=== PATIENT | female | born 1990 | race Caucasian/White ===

== ENCOUNTER 2016-12-15 19:01 | Emergency (ER) | payer MEDICAID, OTHER ==
[2016-12-15] MEDS ORDERED: DEXAMETHASONE 10 MG/ML VIAL PO STA (19:58)
[2016-12-15] MEDS ORDERED: DEXAMETHASONE 10 MG/ML VIAL ONE (20:04)
== END 2016-12-15 20:11 | disposition home or self-care (01) ==
DX: J06.9 Acute upper respiratory infection, unspecified (principal); B97.89 Other viral agents as the cause of diseases classified elsewhere; J02.9 Acute pharyngitis, unspecified; F17.200 Nicotine dependence, unspecified, uncomplicated

== ENCOUNTER 2017-01-22 15:10 | Emergency (ER) | payer MEDICAID ==
[2017-01-22] MEDS ORDERED: DEXAMETHASONE 10 MG/ML VIAL PO STA (15:27)
[2017-01-22] MEDS ORDERED: DEXAMETHASONE 10 MG/ML VIAL ONE (15:36)
[2017-01-22] MEDS ORDERED: CHERRY SYRUP 10 ML UDC PO ONE (15:36)
[2017-01-22] MEDS ORDERED: PENICILLIN VK 250 MG TABLET PO STA (16:00)
[2017-01-22] MEDS ORDERED: IBUPROFEN 800 MG TABLET PO STA (16:00)
[2017-01-22] MEDS ORDERED: IBUPROFEN 800 MG TABLET PO ONE (16:03)
[2017-01-22] MEDS ORDERED: PENICILLIN VK 250 MG TABLET PO ONE (16:04)
== END 2017-01-22 16:08 | disposition home or self-care (01) ==
DX: J02.0 Streptococcal pharyngitis (principal)
CPT/HCPCS: 87070; 87430; 99283; A9270

== ENCOUNTER 2017-02-18 13:35 | Emergency (ER) | payer MEDICAID ==
[2017-02-18] MEDS ORDERED: SODIUM CHLORIDE 0.9% 1,000 ML IV ONE (13:59)
== END 2017-02-18 15:18 | disposition home or self-care (01) ==
DX: R10.9 Unspecified abdominal pain (principal); M54.2 Cervicalgia; R07.9 Chest pain, unspecified; R00.0 Tachycardia, unspecified; R03.0 Elevated blood-pressure reading, without diagnosis of hypertension; F17.200 Nicotine dependence, unspecified, uncomplicated

== ENCOUNTER 2017-05-04 13:23 | Outpatient (CLI) | payer MEDICAID | END 2017-05-04 13:24 | disposition home or self-care (01) | LOC: LAB.N 13:23 | PROVIDERS: ATTEND Physician Assistant | DX: N18.2 Chronic kidney disease, stage 2 (mild) (principal) | CPT/HCPCS: 36415; 80053 ==

== ENCOUNTER 2017-05-05 13:09 | Outpatient (CLI) | payer MEDICAID ==
[2017-05-05 19:27] LABS: ALBUMIN/GLOBULIN RATIO 1.3 (1.0-2.2); BILIRUBIN,TOTAL 0.6 mg/dL (0.2-1.0); CALCIUM 9.2 mg/dL (8.5-10.3); CREATININE 0.8 mg/dL (0.4-1.0); POTASSIUM 3.6 mmol/L (3.5-5.0); TOTAL PROTEIN 7.8 g/dL (6.7-8.2)
== END 2017-05-05 13:10 | disposition home or self-care (01) ==
LOC: LAB.N 13:09
PROVIDERS: ATTEND Physician Assistant
DX: N18.2 Chronic kidney disease, stage 2 (mild) (principal)
CPT/HCPCS: 36415; 80053

== ENCOUNTER 2017-12-15 21:16 | Emergency (ER) | payer MEDICAID, OTHER ==
[2017-12-15] MEDS ORDERED: DEXAMETHASONE 10 MG/ML VIAL PO STA (22:38)
[2017-12-15] MEDS ORDERED: KETOROLAC 60 MG/2 ML VIAL IM STA (22:38)
--- NOTE | 2017-12-15 22:39 | ED Physician Documentation ---
PD HPI UPPER EXT INJURY - Stated complaint Stated Complaint: LT ARM/MID BACK PX - Chief complaint Chief Complaint: Trauma Ext - History obtained from History obtained from: Patient - History of Present Illness Location: Left, Shoulder Type of injury: Other Where injury occurred: Work Timing - onset: Today Timing - details: Abrupt onset Worsened by: Moving, Palpating Similar symptoms before: Work up / diagnostics Recently seen: Not recently seen - Additonal information Additional information: Patient is a 27 year old female with no significant past medical history who is presenting to the emergency department for shoulder and back pain. 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 Patient strained her shoulder in doing so. Review of Systems Constitutional: reports: Reviewed and negative Eyes: reports: Reviewed and negative Ears: reports: Reviewed and negative Nose: reports: Reviewed and negative Throat: reports: Reviewed and negative Cardiac: denies: Chest pain / pressure, Palpitations Respiratory: reports: Reviewed and negative GI: denies: Nausea, Vomiting Skin: denies: Rash, Lesions, Abrasion (s), Laceration (s) Musculoskeletal: reports: Neck pain, Back pain, Extremity pain Neurologic: denies: Generalized weakness, Focal weakness, Head injury Immunocompromised: denies: Immunocompromised PD PAST MEDICAL HISTORY - Past Medical History Past Medical History: Yes Cardiovascular: None Respiratory: None Neuro: None Endocrine/Autoimmune: None GI: None 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 HEENT: None Psych: Anxiety Musculoskeletal: None Derm: None Other Past Medical History: Stage 2 kidney disease - Past Surgical History Past Surgical History: No General: Other /SEAM STEAMER: section - Present Medications Home Medications: Ambulatory Orders Medication Instructions Recorded Confirmed Mylan 1 tab PO DAILY 02/18/17 12/15/17 Cyclobenzaprine [Flexeril] 10 mg PO TID PRN #10 tablet 12/15/17 - Allergies Allergies/Adverse Reactions: Allergies Allergy/AdvReac Type Severity Reaction Status Date / Time No Known Drug Allergies Allergy Verified 12/15/17 21:48 - Social History Does the pt smoke?: Yes Smoking Status: Former smoker Does the pt drink ETOH?: No Does the pt have substance abuse?: No - Immunizations Immunizations are current?: Yes - POLST Patient has POLST: No PD ED PE NORMAL - Vitals Vital signs reviewed: Yes - General General: Alert and oriented X 3, No acute distress, Well developed/nourished - HEENT HEENT: Atraumatic - Neck Neck: Supple, no meningeal sign - Cardiac Cardiac: RRR - Respiratory Respiratory: No respiratory distress - Abdomen Abdomen: Soft - Derm Derm: Normal color, Warm and dry, No rash - Neuro Neuro: Alert and oriented X 3, No motor deficit, No sensory deficit, Normal speech PD ED PE EXPANDED - Extremities Extremities: Tenderness, Left shoulder (mild tenderness to palpation of left shoulder and trapezius muscle, full rom, no gross deformity), Motor intact, Sensory intact, Vascular intact, Tendon intact. No: Deformity Results - Vitals Vitals: Vital Signs - 24 hr 12/15/17 12/15/17 12/15/17 21:22 22:13 23:18 Temperature 35.9 C L Heart Rate 120 H 117 H 109 H Respiratory 18 16 18 Rate Blood Pressure 126/81 H 123/83 H 122/76 O2 Saturation 99 98 98 12/15/17 23:40 Temperature 37.1 C Heart Rate 112 H Respiratory 18 Rate Blood Pressure 139/76 H O2 Saturation 100 Oxygen O2 Source Room air PD MEDICAL DECISION MAKING - ED course Complexity details: reviewed old records, reviewed results, re-evaluated patient , considered differential, d/w patient ED course: Patient was seen and examined at bedside. Patient had no gross abnormality. Patient had mild tenderness but full rom. No imaging was indicated at this time. patient was treated with toradol and decadron and a prescription for flexeril was written. patient required no further work up and was stable for discharge with outpatient follow up. Departure - Departure Disposition: 01 Home, Self Care Clinical Impression: Left shoulder strain Condition: Good Instructions: ED Sprain Shoulder Follow-Up: Joss Payne PA-C [Primary Care Provider] - Prescriptions: Cyclobenzaprine [Flexeril] 10 mg PO TID PRN #10 tablet PRN Reason: Spasms Comments: Your symptoms today are likely secondary to a shoulder strain. You should take motrin or tylenol as needed for pain. You should use ice on your shoulder at least 4 times a day. You can take a flexeril for spasm as needed but you cannot drive or drink alcohol while taking it. You should follow up with your doctor if your symptoms persist. You may return to the emergency department at any time for new, worsening or uncontrollable symptoms. Discharge Date/Time: 12/15/17 23:41
[2017-12-15] MEDS ORDERED: CHERRY SYRUP 10 ML UDC PO ONE (23:11)
[2017-12-15 23:41] VITALS: BP 139/76
== END 2017-12-15 23:41 | disposition home or self-care (01) ==
LOC: ED 21:16
DX: S43.402A Unspecified sprain of left shoulder joint, initial encounter (principal); X50.9XXA Other and unspecified overexertion or strenuous movements or postures, initial encounter; Y99.0 Civilian activity done for income or pay; N18.2 Chronic kidney disease, stage 2 (mild); Z87.891 Personal history of nicotine dependence
CPT/HCPCS: 1040M; 99283; 99284; A9270

== ENCOUNTER 2017-12-17 13:09 | Emergency (ER) | payer MEDICAID ==
[2017-12-17 13:29] VITALS: BP 149/90
[2017-12-17] MEDS ORDERED: DEXAMETHASONE 10 MG/ML VIAL PO STA (14:55)
--- NOTE | 2017-12-17 15:00 | ED Physician Documentation ---
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 HEENT: None Psych: Anxiety Musculoskeletal: None Derm: None - Past Surgical History Past Surgical History: No General: 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 - Present Medications Home Medications: Ambulatory Orders Medication Instructions Recorded Confirmed Amoxicillin 500 mg PO Q8H #30 capsule 12/17/17 Cholecalciferol (Vitamin D3) 2,000 unit PO DAILY 12/17/17 12/17/17 [Vitamin D3] Cyanocobalamin (Vitamin B-12) 3,000 mcg PO DAILY 12/17/17 12/17/17 [Vitamin B-12] Fluticasone [Flonase] 1 sprays JIMI BID PRN #1 bottle 12/17/17 - Allergies Allergies/Adverse Reactions: Allergies Allergy/AdvReac Type Severity Reaction Status Date / Time No Known Drug Allergies Allergy Verified 12/17/17 13:29 - Social History Does the pt smoke?: Yes Smoking Status: Former smoker Does the pt drink ETOH?: No Does the pt have substance abuse?: No - Immunizations Immunizations are current?: Yes - POLST Patient has POLST: No PD ED PE NORMAL - Vitals Vital signs reviewed: Yes - HEENT HEENT: Other (deanna enlarged arythematous almost touching tonsils s 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 No: Ears normal (deanna TMs erythematous and tautly retracted with some cloudy fluid) - Neck Neck: Supple, no meningeal sign. No: No adenopathy (anterior no posterior) - Cardiac Cardiac: RRR - Respiratory Respiratory: No respiratory distress, Clear bilaterally - Abdomen Abdomen: Soft, Non tender - Neuro Neuro: Alert and oriented X 3 Results - Vitals Vitals: Vital Signs - 24 hr 12/17/17 13:27 Temperature 37.3 C Heart Rate 109 H Respiratory 20 Rate Blood Pressure 149/90 H O2 Saturation 98 Oxygen O2 Source Room air PD MEDICAL DECISION MAKING - ED course ED course: HR and BP noted - her ears are hurting quite a lot, well appearing do not think pt is septic Departure - Departure Disposition: 01 Home, Self Care Clinical Impression: Pharyngitis Qualifiers: Pharyngitis/tonsillitis etiology: unspecified etiology Qualified Code(s): J02.9 - Acute pharyngitis, unspecified Otitis media Qualifiers: Otitis media type: suppurative Chronicity: acute Laterality: bilateral Recurrence: not specified as recurrent Spontaneous tympanic membrane rupture: without spontaneous rupture Qualified Code(s): H66.003 - Acute suppurative otitis media without spontaneous rupture of ear drum, bilateral Condition: Good Instructions: ED Otitis Media Acute Adult, ED Strep Pharyngitis Poss Follow-Up: Joss Payne PA-C [Primary Care Provider] - Prescriptions: Amoxicillin 500 mg PO Q8H #30 capsule Fluticasone [Flonase] 1 sprays JIMI BID PRN #1 bottle PRN Reason: allergies
== END 2017-12-17 15:06 | disposition home or self-care (01) ==
LOC: ED 13:09
DX: J02.9 Acute pharyngitis, unspecified (principal); H66.003 Acute suppurative otitis media without spontaneous rupture of ear drum, bilateral; Z87.891 Personal history of nicotine dependence
CPT/HCPCS: 99283

== ENCOUNTER 2017-12-22 12:23 | Emergency (ER) | payer MEDICAID ==
[2017-12-22 12:40] VITALS: BP 128/82
[2017-12-22 13:01] LABS: BILIRUBIN,URINE NEGATIVE (NEGATIVE); GLUCOSE, URINE (UA) NEGATIVE (NEGATIVE); KETONES,URINE (UA) NEGATIVE (NEGATIVE); LEUKOCYTE ESTERASE, URINE SMALL (NEGATIVE); NITRITE,URINE NEGATIVE (NEGATIVE); OCCULT BLOOD,URINE NEGATIVE (NEGATIVE); PH,URINE 5.5 PH (5.0-7.5); PROTEIN,URINE NEGATIVE (NEGATIVE); UROBILINOGEN,URINE 0.2 (NORMAL) E.U./dL (NORMAL)
[2017-12-22 13:03] LABS: CLARITY,URINE CLEAR (CLEAR); HCG UR QUAL NEGATIVE
[2017-12-22 13:10] LABS: BACTERIA,URINE Few /HPF (None Seen); RBC,URINE 0-5 /HPF (0-5); SQUAMOUS EPITHELIAL CELL,UR MANY Squamous (<= Few)
--- NOTE | 2017-12-22 15:11 | ED Physician Documentation ---
History of Present Illness - Stated complaint Stated Complaint: FEMALE - Chief complaint Chief Complaint: General - History obtained from History obtained from: Patient - History of Present Illness Timing: How many days ago (2) Pain level max: 5 Pain level now: 3 Improved by: nothing Worsened by: urinating - Additonal information Additional information: Patient is a 27-year-old female who presents to the emergency department with complaints of dysuria for the past couple of days. This started after she began taking amoxicillin for sinusitis and an ear infection. She also has had unprotected intercourse with a couple of new partners. Concerned she may have an STI. Denies any vaginal bleeding or discharge. No itching. Review of Systems Constitutional: denies: Fever, Chills Ears: denies: Ear pain Nose: denies: Rhinorrhea / runny nose, Congestion Throat: denies: Sore throat Cardiac: denies: Chest pain / pressure Respiratory: denies: Dyspnea GI: denies: Abdominal Pain, Nausea, Vomiting, Diarrhea : reports: Dysuria. 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: section - Present Medications Home Medications: Ambulatory Orders Medication Instructions Recorded Confirmed Amoxicillin 500 mg PO Q8H #30 capsule 12/17/17 Cholecalciferol (Vitamin D3) 2,000 unit PO DAILY 12/17/17 12/17/17 [Vitamin D3] Cyanocobalamin (Vitamin B-12) 3,000 mcg PO DAILY 12/17/17 12/17/17 [Vitamin B-12] Fluticasone [Flonase] 1 sprays JIMI BID PRN #1 bottle 12/17/17 Acyclovir 400 mg PO TID #21 tablet 12/22/17 Metronidazole [Flagyl] 500 mg PO BID #14 tablet 12/22/17 - Allergies Allergies/Adverse Reactions: Allergies Allergy/AdvReac Type Severity Reaction Status Date / Time No Known Drug Allergies Allergy Verified 12/22/17 12:40 - Social History Does the pt smoke?: Yes Smoking Status: Current every day smoker Does the pt drink ETOH?: No Does the pt have substance abuse?: No - Immunizations Immunizations are current?: Yes - POLST Patient has POLST: No PD ED PE NORMAL - Vitals Vital signs reviewed: Yes - General General: Alert and oriented X 3, No acute distress, Well developed/nourished - HEENT HEENT: PERRL, Moist mucous membranes - Neck Neck: Supple, no meningeal sign - Cardiac Cardiac: RRR - Respiratory Respiratory: No respiratory distress, Clear bilaterally - Abdomen Abdomen: Soft, Non tender, Non distended - Female Female : Food 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 no adnexal tenderness.) - Back Back: No CVA TTP - Derm Derm: Warm and dry - Neuro Neuro: Alert and oriented X 3 - Psych Psych: Normal mood, Normal affect Results - Vitals Vitals: Vital Signs - 24 hr 12/22/17 12:35 Temperature 36.1 C L Heart Rate 84 Respiratory 16 Rate Blood Pressure 128/82 H O2 Saturation 100 Oxygen O2 Source Room air - Labs Labs: Microbiology 12/22/17 15:05 HALI Preparation - Final Other - Vaginal 12/22/17 15:05 Wet Prep - Final Vaginal Laboratory Tests 12/22/17 12:49 Urine Color YELLOW Urine Clarity CLEAR Urine pH 5.5 Ur Specific [place] 1.015 Urine Protein NEGATIVE Urine Glucose (UA) NEGATIVE Urine Ketones NEGATIVE Urine Occult Blood NEGATIVE Urine Nitrite NEGATIVE Urine Bilirubin NEGATIVE Urine Urobilinogen 0.2 (NORMAL) Ur Leukocyte Esterase SMALL H Urine RBC 0-5 Urine WBC 0-3 Ur Squamous Epith Cells MANY Squamous H Urine Bacteria Few Ur Microscopic Review INDICATED Urine Culture Comments NOT INDICATED Urine HCG, Qual NEGATIVE PD MEDICAL DECISION MAKING - ED course Complexity details: reviewed results, re-evaluated patient, considered differential, d/w patient ED course: Patient is a 27-year-old female with what appears to be bacterial vaginitis, will place on Flagyl for this. Also concerned that she may have herpes cervicitis and will place on acyclovir for this. We will have her follow-up closely with ELECTRICAL AND RADIO AIRCRAFT MECHANIC for further care. Patient is well-appearing, nontoxic. Counseled to use condoms for sexual activity and that her partners should be tested as well. Testing was sent for gonorrhea and chlamydia. She is recommended to have HIV testing with her doctor. Patient counseled regarding signs and symptoms for which I believe and urgent re-evaluation would be necessary. Patient with good understanding of and agreement to plan and is comfortable going home at this time This document was made in part using voice recognition software. While efforts are made to proofread this document, sound alike and grammatical errors may occur. Departure - Departure Disposition: Home, Self Care Clinical Impression: Bacterial vaginosis, Herpesviral cervicitis Condition: Good Instructions: ED Herpes Simplex Virus Type 2, ED Vaginosis Bacterial Follow-Up: your,doctor in 1 week [Other] [facility] [Provider Group] Prescriptions: Acyclovir 400 mg PO TID #21 tablet Metronidazole [Flagyl] 500 mg PO BID #14 tablet Comments: Please use condoms for sexual activity. Follow-up with your doctor for further evaluation and care. Discharge Date/Time: 12/22/17 15:57
== END 2017-12-22 15:57 | disposition home or self-care (01) ==
LOC: ED 12:23
DX: N76.0 Acute vaginitis (principal); B96.89 Other specified bacterial agents as the cause of diseases classified elsewhere; A60.03 Herpesviral cervicitis; F17.200 Nicotine dependence, unspecified, uncomplicated
CPT/HCPCS: 81001; 81003; 81025; 87086; 87210; 87220; 87491; 87591; 99283

== ENCOUNTER 2018-02-01 20:59 | Emergency (ER) | payer MEDICAID ==
[2018-02-01] MEDS ORDERED: cephALEXin 250 MG CAPSULE PO STA (22:36)
[2018-02-01] MEDS ORDERED: predniSONE 20 MG TABLET PO STA (22:36)
--- NOTE | 2018-02-01 22:38 | ED Physician Documentation ---
PD HPI WOUND RECHECK - Stated complaint Stated Complaint: ARM PX - Chief complaint Chief Complaint: Wound - Histroy obtained from History obtained from: Patient - History of Present Illness Location: Other (She had her first tattoo done around 10 days ago, it was on the right arm with multi colors. She developed itching burning and drainage especially in the part of the tattoo with red ink about 2-3 days ago. 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: section - Present Medications Home Medications: Ambulatory Orders Medication Instructions Recorded Confirmed Amoxicillin 500 mg PO Q8H #30 capsule 12/17/17 Cholecalciferol (Vitamin D3) 2,000 unit PO DAILY 12/17/17 12/17/17 [Vitamin D3] Cyanocobalamin (Vitamin B-12) 3,000 mcg PO DAILY 12/17/17 12/17/17 [Vitamin B-12] Fluticasone [Flonase] 1 sprays JIMI BID PRN #1 bottle 12/17/17 Acyclovir 400 mg PO TID #21 tablet 12/22/17 Metronidazole [Flagyl] 500 mg PO BID #14 tablet 12/22/17 Cephalexin [Keflex] 500 mg PO QID #40 capsule 02/01/18 predniSONE [Deltasone] 20 mg PO [id number] #21 tab 02/01/18 - Allergies Allergies/Adverse Reactions: Allergies Allergy/AdvReac Type Severity Reaction Status Date / Time No Known Drug Allergies Allergy Verified 02/01/18 21:12 - Social History Does the pt smoke?: Yes Smoking Status: Current every day smoker Does the pt drink ETOH?: No Does the pt have substance abuse?: No - Immunizations Immunizations are current?: Yes - POLST Patient has POLST: No PD ED PE NORMAL - Vitals Vital signs reviewed: Yes - General General: Alert and oriented X 3, No acute distress - Extremities Extremities: Other (There is a moderately sized tattoo on the right anterior forearm measuring about 8 cm in diameter with multiple colors. The skin is denuded especially where there was red ink with some impetiginous type drainage on the medial side which was sent for culture. No spreading cellulitis.) - Neuro Neuro: Alert and oriented X 3, Normal speech Results - Vitals Vitals: Vital Signs - 24 hr 02/01/18 21:08 Temperature 36.6 C Heart Rate 112 H Respiratory 16 Rate Blood Pressure 137/94 H O2 Saturation 99 Oxygen O2 Source Room air Departure - Departure Disposition: Home, Self Care Clinical Impression: Decorative tattoo, Impetigo Condition: Good Record reviewed to determine appropriate education?: Yes Instructions: ED Staph Infec Abx Tx Only Prescriptions: Cephalexin [Keflex] 500 mg PO QID #40 capsule predniSONE [Deltasone] 20 mg PO [id number] #21 tab Comments: Call your doctor to arrange a follow-up appointment, make the next available appointment. In the interim, return anytime if worse or if new symptoms develop. We are performing a wound culture, the results should be done in 48-72 hours. If antibiotic change is necessary we will call you. Return if worse in the meantime, especially if you develop increased pain, fevers, cannot keep down the medication. Otherwise follow-up with your physician in approximately 2-3 days. Your blood pressure was elevated today on check into the emergency department. This does not mean that you have hypertension, it is a common phenomenon to come to the emergency department and have elevated blood pressure. I recommend that you see your primary care physician within the week to have it rechecked when you are feeling better.
[2018-02-01 22:49] VITALS: BP 127/81
== END 2018-02-01 22:49 | disposition home or self-care (01) ==
LOC: ED 20:59
DX: L81.8 Other specified disorders of pigmentation (principal); L01.00 Impetigo, unspecified; R03.0 Elevated blood-pressure reading, without diagnosis of hypertension; F17.200 Nicotine dependence, unspecified, uncomplicated
CPT/HCPCS: 87070; 87181; 87205; 99283; A9270; J7512

== ENCOUNTER 2018-03-26 11:37 | Outpatient (CLI) | payer MEDICAID ==
[2018-03-28 12:12] LABS: HEPATITIS C ANTIBODY NON-REACTIVE (NON-REACTIVE)
[2018-03-28 16:52] LABS: HIV AG/AB 4TH GEN NON-REACTIVE (NON-REACTIVE)
== END 2018-03-26 11:38 | disposition home or self-care (01) ==
LOC: LAB.N 11:37
PROVIDERS: ATTEND Physician Assistant Medical
DX: Z20.2 Contact with and (suspected) exposure to infections with a predominantly sexual mode of transmission (principal)
CPT/HCPCS: 36415; 81599; 86592; 86803; 87086; 87389; 87491; 87591

== ENCOUNTER 2018-05-21 00:31 | Emergency (ER) | payer MEDICAID ==
--- NOTE | 2018-05-21 02:01 | ED Physician Documentation ---
PD HPI HEENT - Stated complaint Stated Complaint: SORE THROAT,RT EAR PAIN - Chief complaint Chief Complaint: Heent - History obtained from History obtained from: Patient - History of Present Illness Timing - onset: How many days ago (1-2) Timing - duration: Days Timing - details: Gradual onset Location: Right ear, Throat Improves: Nothing Worsens: [place]ing Associated symptoms: No: Fever, Congestion, Rhinorrhea, Cough Recently seen: Not recently seen Review of Systems Constitutional: denies: Fever, Chills, Sweats Ears: reports: Ear pain (right) Nose: denies: Congestion, Sinus pressure / pain Throat: reports: Sore throat Respiratory: denies: Cough PD PAST MEDICAL HISTORY - Past Medical History Past Medical History: Yes Cardiovascular: None Respiratory: None Endocrine/Autoimmune: None GI: None 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: None Psych: Anxiety Musculoskeletal: None Derm: None - Past Surgical History Past Surgical History: Yes General: Other /INVESTOR: section - Present Medications Home Medications: Ambulatory Orders Medication Instructions Recorded Confirmed Cholecalciferol (Vitamin D3) 2,000 unit PO DAILY 12/17/17 12/17/17 [Vitamin D3] Cyanocobalamin (Vitamin B-12) 3,000 mcg PO DAILY 12/17/17 12/17/17 [Vitamin B-12] Fluticasone [Flonase] 1 sprays JIMI BID PRN #1 bottle 12/17/17 - Allergies Allergies/Adverse Reactions: Allergies Allergy/AdvReac Type Severity Reaction Status Date / Time No Known Drug Allergies Allergy Verified 05/21/18 00:51 - Social History Does the pt smoke?: Yes Smoking Status: Former smoker Does the pt drink ETOH?: No Does the pt have substance abuse?: No - Immunizations Immunizations are current?: Yes - POLST Patient has POLST: No PD ED PE NORMAL - Vitals Vital signs reviewed: Yes - General General: Alert and oriented X 3, No acute distress, Well developed/nourished - HEENT HEENT: Ears normal, Moist mucous membranes, Other (mild posterior oropharyngeal erythema without exudate) - Respiratory Respiratory: No respiratory distress, Clear bilaterally Results - Vitals Vitals: Vital Signs - 24 hr 05/21/18 02:39 Temperature 36.5 C Heart Rate 89 Respiratory 16 Rate Blood Pressure 133/90 H O2 Saturation 99 Oxygen O2 Source Room air - Labs Labs: Laboratory Tests 05/21/18 00:54 Group A Strep Rapid Negative PD MEDICAL DECISION MAKING - ED course Complexity details: reviewed results, considered differential, d/w patient - Sepsis Event Vital Signs: Vital Signs - 24 hr 05/21/18 02:39 Temperature 36.5 C Heart Rate 89 Respiratory 16 Rate Blood Pressure 133/90 H O2 Saturation 99 Oxygen O2 Source Room air Departure - Departure Disposition: 01 Home, Self Care Clinical Impression: Pharyngitis Condition: Good Instructions: ED Pharyngitis Viral Report Pending Follow-Up: Marc Fischer PA-C [Primary Care Provider] - Forms: Activity restrictions Discharge Date/Time: 05/21/18 02:41
[2018-05-21] MEDS ORDERED: DEXAMETHASONE 10 MG/ML VIAL PO STA (02:15)
[2018-05-21 02:39] VITALS: BP 133/90
== END 2018-05-21 02:41 | disposition home or self-care (01) ==
LOC: ED 00:31
DX: J02.9 Acute pharyngitis, unspecified (principal); Z87.891 Personal history of nicotine dependence
CPT/HCPCS: 87070; 87430; 99283

== ENCOUNTER 2018-09-03 17:35 | Day surgery (SDC) | payer MEDICAID ==
[2018-09-03] MEDS ORDERED: ACETAMINOPHEN 325 MG TABLET PO STA (17:51)
--- NOTE | 2018-09-03 17:53 | ED Physician Documentation ---
PD HPI ABD PAIN - Stated complaint Stated Complaint: RLQ PAIN - Chief complaint Chief Complaint: Abd Pain - History obtained from History obtained from: Patient - History of Present Illness Timing - onset: Last night (Gradual onset right lower quadrant pain radiating to the right upper quadrant left lower quadrant since last night with very mild nausea. Pain is not severe. No fevers or chills. Last menses was 2 months ago which is not atypical for her and she doubts .) Review of Systems Constitutional: denies: Fever, Chills Respiratory: denies: Dyspnea, Cough GI: reports: Abdominal Pain, Nausea. 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 HEENT: None Psych: Anxiety Musculoskeletal: None Derm: None - Past Surgical History Past Surgical History: Yes General: Other /FELT STRIP FINISHER: section - Allergies Allergies/Adverse Reactions: Allergies Allergy/AdvReac Type Severity Reaction Status Date / Time No Known Drug Allergies Allergy Verified 09/03/18 17:41 - Social History Does the pt smoke?: Yes Smoking Status: Former smoker Does the pt drink ETOH?: No Does the pt have substance abuse?: No - Immunizations Immunizations are current?: Yes - POLST Patient has POLST: No PD ED PE NORMAL - Vitals Vital signs reviewed: Yes - General General: Alert and oriented X 3, No acute distress - HEENT HEENT: PERRL, EOMI - Neck Neck: Supple, no meningeal sign, No bony TTP - Cardiac Cardiac: RRR, No murmur - Respiratory Respiratory: No respiratory distress, Clear bilaterally - Abdomen Abdomen: Other (Focal tenderness in the right lower quadrant without surgical signs, but she does have a positive Rovsing sign.) - Back Back: No CVA TTP, No spinal TTP - Derm Derm: Normal color, Warm and dry - Extremities Extremities: No edema, No calf tenderness / cord - Neuro Neuro: Alert and oriented X 3, Normal speech Results - Vitals Vitals: Vital Signs - 24 hr 09/03/18 17:38 Temperature 36.2 C L Heart Rate 98 Respiratory 18 Rate Blood Pressure 127/76 O2 Saturation 98 Oxygen O2 Source Room air - Rads (name of study) CT A/P Radiology: EMP read contemporaneously (Enhancing thick-walled appendix most compatible with unruptured acute appendicitis) PD MEDICAL DECISION MAKING - ED course ED course: 28-year-old woman presents with signs and symptoms concerning for acute appendicitis which is proven on CT despite relatively normal white count. Spoke with Dr. Frye, the on-call surgeon at 8:30 PM who recommends Zosyn and will be in shortly to see the patient - Sepsis Event Vital Signs: Vital Signs - 24 hr 09/03/18 17:38 Temperature 36.2 C L Heart Rate 98 Respiratory 18 Rate Blood Pressure 127/76 O2 Saturation 98 Oxygen O2 Source Room air Departure - Departure Disposition: ED Transfer to [facility] Clinical Impression: Appendicitis Qualifiers: Appendicitis type: acute appendicitis Acute appendicitis type: unspecified acute appendicitis type Qualified Code(s): K35.80 - Unspecified acute appendicitis Condition: Stable
[2018-09-03 18:14] LABS: BILIRUBIN,URINE NEGATIVE (NEGATIVE); GLUCOSE, URINE (UA) NEGATIVE (NEGATIVE); KETONES,URINE (UA) NEGATIVE (NEGATIVE); LEUKOCYTE ESTERASE, URINE NEGATIVE (NEGATIVE); NITRITE,URINE POSITIVE (NEGATIVE); OCCULT BLOOD,URINE NEGATIVE (NEGATIVE); PROTEIN,URINE NEGATIVE (NEGATIVE); UROBILINOGEN,URINE 0.2 (NORMAL) E.U./dL (NORMAL)
[2018-09-03 18:16] LABS: CLARITY,URINE CLEAR (CLEAR); HCG UR QUAL NEGATIVE
[2018-09-03 18:19] LABS: BASOPHILS % (AUTO) 0.7 %; EOSINOPHILS # (AUTO) 0.1 10^3/uL (0.0-0.7); EOSINOPHILS % (AUTO) 0.7 %; HGB - HEMOGLOBIN 14.7 g/dL (12.0-16.0); LYMPHOCYTES # (AUTO) 2.3 10^3/uL (1.5-3.5); LYMPHOCYTES % (AUTO) 32.3 %; MEAN CORPUSCULAR HEMOGLOBIN 30.2 pg (27.0-31.0); MEAN CORPUSCULAR HGB CONC 33.8 g/dL (32.0-36.0); MEAN CORPUSCULAR VOLUME 89.5 fL (81.0-99.0); MONOCYTES # (AUTO) 0.5 10^3/uL (0.0-1.0); MONOCYTES % (AUTO) 7.6 %; NEUTROPHILS # (AUTO) 4.2 10^3/uL (1.5-6.6); NEUTROPHILS % (AUTO) 58.7 %; PLT - PLATELET COUNT 277 10^3/uL (130-450); RED BLOOD COUNT 4.87 10^6/uL (4.20-5.40); RED CELL DISTRIBUTION WIDTH 13.5 % (12.0-15.0); WHITE BLOOD COUNT 7.1 x10^3/uL (4.8-10.8)
[2018-09-03 18:30] LABS: BACTERIA,URINE Rare /HPF (None Seen); RBC,URINE None Seen /HPF (0-5); SQUAMOUS EPITHELIAL CELL,UR RARE Squamous (<= Few)
[2018-09-03 18:31] LABS: ALBUMIN 4.5 g/dL (3.2-5.5); ALBUMIN/GLOBULIN RATIO 1.3 (1.0-2.2); BILIRUBIN,TOTAL 0.7 mg/dL (0.2-1.0); CALCIUM 9.5 mg/dL (8.5-10.3); CREATININE 0.8 mg/dL (0.4-1.0); TOTAL PROTEIN 7.9 g/dL (6.7-8.2)
[2018-09-03] MEDS ORDERED: IOPAMIDOL-300 100 ML VIAL ONE (18:39)
--- NOTE | 2018-09-03 20:21 | CT Report ---
Reason: IV only, RLQ pain Procedure Date: 09/03/2018 Accession Number: [id number] / [id number] Procedure: CT - Abdomen/Pelvis W/ CPT Code: FULL RESULT: EXAM: CT ABDOMEN AND PELVIS EXAM DATE: 09/03/2018 08:02 PM. CLINICAL HISTORY: IV only, RLQ pain. COMPARISONS: 09/26/2015. TECHNIQUE: Routine helical CT imaging was performed through the abdomen and pelvis. IV contrast: 100 ML ISOVUE 300. Enteric contrast: No. Reconstructions: Coronal and sagittal. In accordance with CT protocol optimization, one or more of the following dose reduction techniques were utilized for this exam: automated exposure control, adjustment of mA and/or KV based on patient size, or use of iterative reconstructive technique. FINDINGS: Lung Bases: Unremarkable. Liver: Flash hemangioma in right lobe. Otherwise unremarkable. Gallbladder/Bile Ducts: Partially contracted, grossly negative. No ductal dilation. Spleen: Normal. Pancreas: Normal. Adrenal Glands: Normal. Kidneys: Right renal cyst. Otherwise unremarkable. No hydronephrosis. Peritoneal Cavity/Bowel: The appendix measures almost 10 mm in maximum diameter, thick-walled, with mural enhancement, and minimal infiltration of adjacent fat. Otherwise unremarkable. No free fluid, free air, or lymphadenopathy. Pelvic Organs: Unremarkable urinary bladder. Right ovarian dominant follicle measuring almost 18 mm. Otherwise unremarkable uterus and ovaries. Vasculature: No aneurysms or other significant abnormality. Bones: No significant abnormality. Other: None. IMPRESSION: 1. Enhancing thick-walled appendix most compatible with unruptured acute appendicitis. 2. Other chronic or incidental findings. RADIA
[2018-09-03] MEDS ORDERED: PIPERACILLIN/TAZOBACTAM 3.375 GM in SODIUM CHLORIDE 0.9% MINIBAG 100 ML IV STA (20:32)
--- NOTE | 2018-09-03 21:35 | ANESTHESIA ---
Pre-Anesthesia VS, & Labs - Diagnosis Acute appendicitis - Procedure Lap Appendectomy Vital Signs: Temp Pulse Resp BP Pulse Ox 36.9 C 86 16 158/98 H 100 09/03/18 20:45 09/03/18 20:45 09/03/18 20:45 09/03/18 20:45 09/03/18 20:45 Height 5 ft 5 in Weight (kg) 98.43 kg Body Mass Index 36.1 - NPO Last Fluid Intake: 6 hours Last Food Intake: 6 hours - Is Patient ?: No - Lab Results Current Lab Results: Laboratory Tests 09/03/18 18:12: Sodium 135, Potassium 3.7, Chloride 100 L, Carbon Dioxide 25, Anion Gap 10.0, BUN 13, Creatinine 0.8, Estimated GFR (MDRD) 87 L, Glucose 101 H , Calcium 9.5, Total Bilirubin 0.7, AST 23, ALT 28, Alkaline Phosphatase 73, Total Protein 7.9, Albumin 4.5, Globulin 3.4, Albumin/Globulin Ratio 1.3, Lipase 40 09/03/18 18:12: WBC 7.1, RBC 4.87, Hgb 14.7, Hct 43.6, MCV 89.5, MCH 30.2, MCHC 33.8, RDW 13.5, Plt Count 277, MPV 7.0 L, Neut # (Auto) 4.2, Lymph # (Auto) 2.3, [place] # (Auto) 0.5, Eos # (Auto) 0.1, Baso # (Auto) 0.0, Absolute Nucleated RBC 0.00, Nucleated RBC % 0.0 Lab results reviewed: Yes Fish Bones: 09/03/18 18:12 09/03/18 18:12 Home Medications and Allergies Allergies/Adverse Reactions: Allergies Allergy/AdvReac Type Severity Reaction Status Date / Time No Known Drug Allergies Allergy Verified 09/03/18 17:41 Anes History & Medical History - Medical History Cardiovascular: reports: None Pulmonary: reports: None Gastrointestinal: reports: None Urinary: reports: Other Neuro: reports: None Musculoskeletal: reports: None Endocrine/Autoimmune: reports: None Blood Disorders: reports: None Skin: reports: None Smoking Status: Former smoker - Surgical History General: Other Gynecologic: section Exam General: Alert, Oriented x3, Cooperative, No acute distress Dental: WNL Mouth Openin Fingerbreadth Neck Mobility: Normal Mallampati classification: II Thyromental Distance: 4-6 cm Respiratory: Lungs clear Cardiovascular: Regular rate, Normal S1, Normal S2, No murmurs Mental/Cognitive Status: Alert/Oriented X3 Cognitive Status: Within normal limits Plan Anesthesia Type: General Consent for Procedure(s) Verified and Reviewed: Yes Code Status: Attempt Resuscitation ASA classification: 2-Mild systemic disease Is this case an emergency?: Yes
[2018-09-03] MEDS ORDERED: fentaNYL 100 MCG/2 ML VIAL IVP ONE (22:00)
[2018-09-03] MEDS ORDERED: NEOSTIGMINE 1 MG/1 ML 10 ML MDV IVP ONE (22:00)
[2018-09-03] MEDS ORDERED: PHENYLEPHRINE 50 MG/5 ML VIAL IV ONE (22:00)
[2018-09-03] MEDS ORDERED: ONDANSETRON 4 MG/2 ML VIAL IVP ONE (22:00)
[2018-09-03] MEDS ORDERED: SUCCINYLCHOLINE 200 MG/10 ML VIAL IVP ONE (22:00)
[2018-09-03] MEDS ORDERED: ROCURONIUM 50 MG/5 ML VIAL IVP ONE (22:00)
[2018-09-03] MEDS ORDERED: GLYCOPYRROLATE 1 MG/5 ML VIAL IVP ONE (22:00)
[2018-09-03] MEDS ORDERED: PROPOFOL 200 MG/20 ML VIAL IVP ONE (22:00)
[2018-09-03] MEDS ORDERED: DEXAMETHASONE 4 MG/ML VIAL IVP ONE (22:00)
[2018-09-03] MEDS ORDERED: LIDOCAINE-MPF 2% 5 ML VIAL IM ONE (22:00)
[2018-09-03] MEDS ORDERED: MIDAZOLAM 2 MG/2 ML VIAL IVP ONE (22:00)
[2018-09-03] MEDS ORDERED: LACTATED RINGERS 1,000 ML IV ONE ×2 (22:03→23:22)
--- NOTE | 2018-09-03 22:06 | CONSULTATION NOTE ---
Referring Provider Name of Referring Provider:: Dr. Dewayne Albert Consult Date: 09/03/18 Chief Complaint - Chief Complaint Chief Complaint: Right lower quadrant pain History of Present Illness - Admitted From Admitted From:: Outpatient from ED - History Obtained From Records Reviewed: Yes History obtained from: Patient, chart, Dr. Albert Exam Limitations: None - History of Present Illness HPI Comment/Other: Dr. Albert asked that I see this very pleasant 28-year-old female for less than 24-hour history of epigastric pain that then localized in the right lower quadrant. This was accompanied by nausea but no vomiting. There is no diarrhea, constipation, melena, hematochezia, or hematemesis. Moving makes the pain worse. Lying still keeps the pain from occurring. 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 denies: Constipation, Diarr hea, Rectal bleeding, Black stools, Bloody stools, Vomiting, Bile emesis, Guillermo blood emesis - Genitourinary Genitourinary: denies: Dysuria - Musculoskeletal Musculoskeletal: denies: Muscle pain - Integumentary Integumentary: denies: Rash - Neurological Neurological: denies: General weakness, Focal weakness - Hematologic/Lymphatic Hematologic/Lymphatic: denies: Anemia, Bruising Exam - Vital Signs Reviewed Vital Signs: Yes Vital Signs: Vital Signs x48h Temp Pulse Resp BP Pulse Ox 09/03/18 20:45 36.9 C 86 16 158/98 H 100 09/03/18 17:38 36.2 C L 98 18 127/76 98 - Physical Exam General Appearance: positive: No acute distress Eyes Bilateral: positive: No lid inflammation, Conjunctivae nml, No scleral icterus ENT: positive: Dry mucous membranes Neck: positive: Trachea midline Respiratory: positive: Chest non-tender, No respiratory distress, Breath sounds nml Cardiovascular: positive: Regular rate & rhythm Abdomen: positive: Tenderness (In the right lower quadrant at McBurney's point.), Abnml bowel sounds (Slightly decreased.), Other (Patient's body habitus makes it impossible to determine whether or not the patient has hepatomegaly or splenomegaly.). negative: Guarding, Rebound Skin: positive: Color nml Extremities: positive: Non-tender, Nml appearance Neurologic/Psychiatric: positive: Oriented x3 Conclusion/Plan - Diagnosis Diagnosis: Acute appendicitis (nonperforated) - Plan Plan: Laparoscopic appendectomy, possible open appendectomy. The indications, procedure, alternatives including no surgery, possible risks including infection (deep or superficial), bleeding requiring transfusion (with all of its risks), and were fully explained to the patient and all questions answered. I also explained the pathophysiology. I explained that following the surgery I did not want her lifting anything over 15 pounds for 6 weeks to allow for optimal healing and to decrease the likelihood that a hernia would occur. All questions were fully answered. Verbal and written consent was obtained. The patient, in preparation for surgery will be nothing by mouth, and receive 3.375 g of Zosyn with induction. I asked her to contact me with any surgical questions and her concerns and she stated that she would. I asked her to let me know if there is any way we can make her stay at [facility] more comfortable and she stated that she would let me know. The plan is to do this operation as an outpatient procedure and to discharge her home following the procedure. 45 minutes of [id number] time spent with the patient, with over 80% in discussion, coordination of her care, and completion of the requisite paperwork - Lab Results Lab results reviewed: Yes Fish Bones: 09/03/18 18:12 09/03/18 18:12
[2018-09-03] MEDS ORDERED: BUPIVACAINE 0.5% PF 30 ML VIAL ONE (22:10)
--- NOTE | 2018-09-03 23:25 | OPERATIVE REPORT ---
Operative Report - General Procedure Date: 09/03/18 Planned Procedure: Laparoscopic appendectomy, possible open appendectomy Pre-Op Diagnosis: Acute appendicitis Procedure Performed: Laparoscopic appendectomy Post Op Diagnosis: Acute nonperforated appendicitis - Procedure Note Primary Surgeon: Wm Frye MD Anesthesia Provider: Trever Virgen CRNA Anesthesia Technique: General ET tube, Local (30 mL of half percent Marcaine) IV Fluids (mL): 1,000 Estimated Blood Loss (mL): 10 Complications: None. - Other Other Information/Narrative: OPERATIVE DESCRIPTION/REPORT: After verbal and written informed consent was obtained detailing the risks of infection, bleeding requiring transfusion with its risks, and , and after I met with the patient confirming the surgery and the site of the surgery, the patient was brought to the operative suite and placed supine on the operating table. Great care was taken to avoid pressure points to prevent pressure necrosis or nerve injury. Monitoring devices were applied along with TEDs and pneumatic compressive stockings (to prevent DVT). The patient received preoperative antibiotics for surgical prophylaxis. Trever Virgen CRNA sedated and anesthetized the patient for the entire procedure. The patient was prepped and draped in the usual sterile manner. With the patient draped my initials were clearly visible. A "time in" then confirmed that the patient was identified with 3 identifiers (name, date and medical record number), the history and physical was in the chart, the signed consent confirming the procedure was in the chart, the patient was in the correct position, the aforementioned prophylactic measures were in place or given, we had the correct personnel and equipment to complete the procedure and that anesthesia, surgery and nursing were given an opportunity to express any concerns. With the agreement of everyone in the room, we proceeded with the operation. A 2 cm incision umbilical incition was made and dissection down to the fascia was completed in a blunt and sharp manner. The fascia was then cleared of subcutaneous tissue using a tonsil clamp and a small incision was made in the fascia gaining entry into the abdomen without incident. A 12 mm blunt tipped balloon tipped Binu port was placed into the abdomen and the balloon inflated to keep it in place. The pneumoperitoneum was then established using carbon di oxide insufflation to a steady state pressure of 15 mmHg. Two additional 5 mm ports were placed in the midline above and below the umbilicus. It was clear that there were some adhesions around the umbilicus that need to be taken down so that the adhesions would not obstruct my view. A 5 mm 30 degree scope was placed in the superior port and a laparoscopic scissor was used to cut the adhesions under direct vision. The 10 mm 30 degree scope was then replaced into the umbilicus and I proceeded with the operation. The patient was then rotated slightly to their left and slightly head down (Justino ndelenberg). A small adhesion was photographed and cut. The appendix was clearly identified and noted to be thickened and clearly consistent with acute appendicitis. The end of the appendix was grasped with a Prestige grasper and lifted anteriorly thus revealing the appendiceal mesentery. The mesentery was taken using sequential application of the Ligasure until the base of the appendix was visualized without any adherent tissue. The base of the appendix was then stapled but the cutter on the stapler did not function. As a result I had to obtain another staple load and re-staple across the base of the appendix this time transecting the appendix using the laparoscopic vascular stapler. Visualization of the staple line revealed absolutely no bleeding or leak of bowel contents. Photographs were taken. The appendix was then place into an endopouch for the remainder of the case. The patient was then rotated to lie flat. The right lower quadrant was then copiously irrigated using 1 L of warm sterile saline. The fascia and skin were then injected with the 30 cc of % marcaine for pain control. The insufflation was released and the ports removed. With the removal of the umbilical port the Endopouch containing the appendix was also removed. The fascial defect was then approximated using 0-Vicryl suture in a simple interrupted manner taking care to bury the knots. The skin incisions were approximated with 4-0 Monocryl in a subcuticular fashion. The surgical prep was removed, the skin was prepped with benzoin and steristrips were applied. A dressing was applied. At this point a time out was performed that confirmed that all the counts were correct, the procedure that was performed, the blood loss, the urine output, the IV fluids administered, and the patients condition. Having tolerated the procedure well, the patient was subsequently extubated and taken to recovery room in good and stable condition. [employer] disclaimer: This document was created in part using voice recognition technology. Because of the inherent limitations of the system ([employer]'s Dragon Dictate user manual states that the licensee understands that speech recognition is a statistical process and that recognition errors are inherent in the process), occasional same sounding word substitutions and grammatical errors do occur and persist despite proofreading. Please read this document for context.
[2018-09-03] MEDS ORDERED: ONDANSETRON 4 MG/2 ML VIAL IVP PRN (23:26)
[2018-09-03] MEDS ORDERED: HYDROmorphone 0.5 MG/0.5 ML SYRINGE IVP PRN (23:26)
[2018-09-03] MEDS ORDERED: HYDROcod/ACETAM 5/325 MG TABLET PO PRN (23:26)
[2018-09-03] MEDS ORDERED: HYDROcod/ACET 5/325 Prepack 4 PO STA (23:39)
[2018-09-04 00:25] VITALS: BP 126/74
[2018-09-04] MEDS ORDERED: IOPAMIDOL-300 100 ML VIAL IVP ONE (14:25)
== END 2018-09-03 21:42 | disposition home or self-care (01) ==
LOC: ED 17:35 → SDS 21:41
PROVIDERS: ATTEND Surgery
PROC: 0DTJ4ZZ Resection of Appendix, Percutaneous Endoscopic Approach (ICD-10-PCS; principal; 2018-09-03 22:00)
DX: K35.80 Unspecified acute appendicitis (principal); Z87.891 Personal history of nicotine dependence
CPT/HCPCS: 36415; 44970; 74177; 80053; 81001; 81025; 83690; 85025; 87086; 99283; 99284; A9270; J0330; J7120; Q9967; 81003

== ENCOUNTER 2018-10-28 21:30 | Emergency (ER) | payer MEDICAID ==
[2018-10-28 21:52] LABS: BILIRUBIN,URINE NEGATIVE (NEGATIVE); GLUCOSE, URINE (UA) NEGATIVE (NEGATIVE); KETONES,URINE (UA) NEGATIVE (NEGATIVE); LEUKOCYTE ESTERASE, URINE MODERATE (NEGATIVE); NITRITE,URINE NEGATIVE (NEGATIVE); OCCULT BLOOD,URINE SMALL (NEGATIVE); PH,URINE 5.5 PH (5.0-7.5); PROTEIN,URINE NEGATIVE (NEGATIVE); UROBILINOGEN,URINE 0.2 (NORMAL) E.U./dL (NORMAL)
[2018-10-28 21:55] LABS: CLARITY,URINE CLEAR (CLEAR); HCG UR QUAL NEGATIVE
[2018-10-28 22:13] LABS: BACTERIA,URINE Few /HPF (None Seen); RBC,URINE 0-5 /HPF (0-5); SQUAMOUS EPITHELIAL CELL,UR FEW Squamous (<= Few)
[2018-10-28] MEDS ORDERED: metroNIDAZOLE 250 MG TABLET PO STA (22:37)
[2018-10-28] MEDS ORDERED: SULFAMETH/TRIMETH DS 800/160 MG TABLET PO STA (22:37)
[2018-10-28] MEDS ORDERED: FLUCONAZOLE 100 MG TABLET PO STA (22:37)
--- NOTE | 2018-10-28 22:40 | ED Physician Documentation ---
PD HPI FEMALE - Stated complaint Stated Complaint: FEMALE - Chief complaint Chief Complaint: Abd Pain - History obtained from History obtained from: Patient - History of Present Illness Timing - onset: How many days ago (1-2) Timing - duration: Days (1-2) Timing - details: Gradual onset, Still present Associated symptoms: Vaginal discharge, Dysuria. No: Fever, Vaginal bleeding, Genital sore/lesion Contributing factors: Sexually active. No: , Exposed to STD Similar symptoms before: Diagnosis (has had BV, UTIs in the past.) Recently seen: Not recently seen Review of Systems Constitutional: denies: Fever, Chills Throat: denies: Sore throat : reports: Dysuria, Frequency, Discharge. 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: section - Present Medications Home Medications: Ambulatory Orders Medication Instructions Recorded Confirmed Bcp 10/28/18 Fluconazole [Diflucan] 150 mg PO ONCE #1 tablet 10/28/18 Metronidazole [Flagyl] 500 mg PO BID #20 tablet 10/28/18 Sulfamethox/Trimeth 800/160 1 each PO BID #6 tablet 10/28/18 [Bactrim Ds 800/160] - Allergies Allergies/Adverse Reactions: Allergies Allergy/AdvReac Type Severity Reaction Status Date / Time No Known Drug Allergies Allergy Verified 10/28/18 21:38 - Social History Does the pt smoke?: No Smoking Status: Never smoker Does the pt drink ETOH?: No Does the pt have substance abuse?: No - Immunizations Immunizations are current?: Yes - POLST Patient has POLST: No PD ED PE NORMAL - Vitals Vital signs reviewed: Yes - General General: Alert and oriented X 3, No acute distress, Well developed/nourished - HEENT HEENT: Pharynx benign - Abdomen Abdomen: Soft, Non tender - Female Female : 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 Vault with some thicker white near introitus. Deeper vault with milky white/yellow discharge. Mild cervical redness. ) - Rectal Rectal: Deferred - Back Back: No CVA TTP - Derm Derm: Normal color, Warm and dry, No rash - Neuro Neuro: Alert and oriented X 3, No motor deficit, Normal speech Results - Vitals Vitals: Oxygen O2 Source Room air - Labs Labs: Microbiology 10/28/18 21:40 Urine Culture - Final Urine,Clean Catch Greater than 10,000 COLONIES/ML UROGENITAL BRANDI 10/28/18 22:28 Wet Prep - Final Genital - Cervix Laboratory Tests 10/28/18 21:40 Urine Color YELLOW Urine Clarity CLEAR Urine pH 5.5 Ur Specific Tea 1.025 Urine Protein NEGATIVE Urine Glucose (UA) NEGATIVE Urine Ketones NEGATIVE Urine Occult Blood SMALL H Urine Nitrite NEGATIVE Urine Bilirubin NEGATIVE Urine Urobilinogen 0.2 (NORMAL) Ur Leukocyte Esterase MODERATE H Urine RBC 0-5 Urine WBC 6-10 H Ur Squamous Epith Cells FEW Squamous Urine Bacteria Few Ur Microscopic Review INDICATED Urine Culture Comments INDICATED Urine HCG, Qual NEGATIVE PD MEDICAL DECISION MAKING - ED course Complexity details: considered differential (some UTI symptoms and UA; has vag discharge and positive clue cells. ), d/w patient Departure - Departure Disposition: 01 Home, Self Care Clinical Impression: Dysuria Vaginitis Qualifiers: Chronicity: acute Qualified Code(s): N76.0 - Acute vaginitis UTI (urinary tract infection) Qualifiers: Urinary tract infection type: acute cystitis Hematuria presence: without hematuria Qualified Code(s): N30.00 - Acute cystitis without hematuria Condition: Stable Record reviewed to determine appropriate education?: Yes Instructions: ED UTI Cystitis Female, ED Vaginosis Bacterial Follow-Up: Marc Fischer PA-C [Primary Care Provider] - Prescriptions: Fluconazole [Diflucan] 150 mg PO ONCE #1 tablet Metronidazole [Flagyl] 500 mg PO BID #20 tablet Sulfamethox/Trimeth 800/160 [Bactrim Ds 800/160] 1 each PO BID #6 tablet Comments: Your urine test does have signs of an infection to it but not too bad. We can treated with an antibiotic targeted towards bladder and take it twice daily for 3 days. The vaginal exam has what looks like a mix of some element of yeast vaginitis. We gave an antifungal tablet here tonight and take another one in 4- 5 days to further treat it. It also appears like a bacterial vaginitis by exam. Take Flagyl twice daily for 10 days. The vaginal cultures will result in 2-3 days and we will call you if we need to change the antibiotic treatment. Discharge Date/Time: 10/28/18 22:55
[2018-10-28 22:55] VITALS: BP 128/84
== END 2018-10-28 22:55 | disposition home or self-care (01) ==
LOC: ED 21:30
DX: N30.00 Acute cystitis without hematuria (principal); N76.0 Acute vaginitis
CPT/HCPCS: 81001; 81025; 87086; 87210; 87491; 87591; 99283; A9270; 81003

== ENCOUNTER 2019-01-17 21:43 | Emergency (ER) | payer MEDICAID ==
--- NOTE | 2019-01-17 21:55 | ED Physician Documentation ---
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: section - Present Medications Home Medications: Ambulatory Orders Medication Instructions Recorded Confirmed Bcp 10/28/18 Fluconazole [Diflucan] 150 mg PO ONCE #1 tablet 10/28/18 Metronidazole [Flagyl] 500 mg PO BID #20 tablet 10/28/18 Sulfamethox/Trimeth 800/160 1 each PO BID #6 tablet 10/28/18 [Bactrim Ds 800/160] - Allergies Allergies/Adverse Reactions: Allergies Allergy/AdvReac Type Severity Reaction Status Date / Time No Known Drug Allergies Allergy Verified 01/17/19 21:52 - Social History Does the pt smoke?: No Smoking Status: Never smoker Does the pt drink ETOH?: No Does the pt have substance abuse?: No - Immunizations Immunizations are current?: Yes - POLST Patient has POLST: No Results - Vitals Vitals: Vital Signs - 24 hr 01/17/19 21:49 Temperature 36.5 C Heart Rate 99 Respiratory 16 Rate Blood Pressure 134/76 H O2 Saturation 99 Oxygen O2 Source Room air <Dewayne Albert - Last Filed: 01/17/19 22:05> History of Present Illness - History obtained from History obtained from: Patient - History of Present Illness Timing: Other (She has had about 3 days of bilateral ear pain with slight dizziness and sinus congestion but no fevers. She also is not late on her menses she does not think but complains of mild pelvic pain associated with breast tenderness. She is sexually active and uses condoms.) Review of Systems Constitutional: denies: Fever, Chills Ears: reports: Ear pain. denies: Drainage/discharge Nose: reports: Rhinorrhea / runny nose, Congestion, Sinus pressure / pain Cardiac: denies: Chest pain / pressure, Palpitations PD ED PE NORMAL - Vitals Vital signs reviewed: Yes - General General: Alert and oriented X 3, No acute distress - HEENT HEENT: Pharynx benign, Other (Mild bilateral otitis media, left greater than right) - Neck Neck: Supple, no meningeal sign, No bony TTP - Abdomen Abdomen: Soft, Non tender - Back Back: No CVA TTP, No spinal TTP - Neuro Neuro: Alert and oriented X 3, Normal speech - Psych Psych: Normal mood, Normal affect
[2019-01-17 22:17] LABS: BILIRUBIN,URINE NEGATIVE (NEGATIVE); GLUCOSE, URINE (UA) NEGATIVE (NEGATIVE); KETONES,URINE (UA) NEGATIVE (NEGATIVE); LEUKOCYTE ESTERASE, URINE NEGATIVE (NEGATIVE); NITRITE,URINE NEGATIVE (NEGATIVE); OCCULT BLOOD,URINE NEGATIVE (NEGATIVE); PH,URINE 6.5 PH (5.0-7.5); PROTEIN,URINE NEGATIVE (NEGATIVE); UROBILINOGEN,URINE 0.2 (NORMAL) E.U./dL (NORMAL)
[2019-01-17 22:19] LABS: CLARITY,URINE CLEAR (CLEAR)
[2019-01-17 22:20] LABS: HCG UR QUAL POSITIVE
[2019-01-17] MEDS ORDERED: AMOXICILLIN 250 MG CAPSULE PO STA (22:29)
--- NOTE | 2019-01-17 22:31 | ED Physician Documentation ---
History of Present Illness - Stated complaint Stated Complaint: EAR PX/DIZZY - Chief complaint Chief Complaint: General - History obtained from History obtained from: Patient - History of Present Illness Timing: Other (She has had 2 days or so of bilateral ear pain, left greater than right with mild dizziness. Also breast heaviness and slight pelvic pain. She is either a little later in her menses or close to when her menses should start. She is sexually active with condoms. 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 HEENT: None Psych: Anxiety Musculoskeletal: None Derm: None - Past Surgical History Past Surgical History: Yes General: Appendectomy /INSTRUCTOR LOOPING: section - Present Medications Home Medications: Ambulatory Orders Medication Instructions Recorded Confirmed Bcp 10/28/18 Fluconazole [Diflucan] 150 mg PO ONCE #1 tablet 10/28/18 Metronidazole [Flagyl] 500 mg PO BID #20 tablet 10/28/18 Sulfamethox/Trimeth 800/160 1 each PO BID #6 tablet 10/28/18 [Bactrim Ds 800/160] Amoxicillin 500 mg PO TID #30 capsule 01/17/19 Pnv No.122/Iron/Folic Acid 1 each PO DAILY #90 tablet 01/17/19 [ Multi Tablet] - Allergies Allergies/Adverse Reactions: Allergies Allergy/AdvReac Type Severity Reaction Status Date / Time No Known Drug Allergies Allergy Verified 01/17/19 21:52 - Social History Does the pt smoke?: No Smoking Status: Never smoker Does the pt drink ETOH?: No Does the pt have substance abuse?: No - Immunizations Immunizations are current?: Yes - POLST Patient has POLST: No PD ED PE NORMAL - Vitals Vital signs reviewed: Yes - General General: Alert and oriented X 3, No acute distress - HEENT HEENT: Other (Mild bilateral otitis media, left worse than right, normal oropharynx.) - Neck Neck: Supple, no meningeal sign, No bony TTP - Abdomen Abdomen: Soft, Non tender - Female Female : Other (Bedside ultrasound demonstrates single live intrauterine with a heart rate of 140, date 6 weeks and 4 days by crown-rump length.) - Back Back: No CVA TTP, No spinal TTP - Neuro Neuro: Alert and oriented X 3, Normal speech - Psych Psych: Normal mood, Normal affect Results - Vitals Vitals: Vital Signs - 24 hr 01/17/19 21:49 Temperature 36.5 C Heart Rate 99 Respiratory 16 Rate Blood Pressure 134/76 H O2 Saturation 99 Oxygen O2 Source Room air - Labs Labs: Laboratory Tests 01/17/19 22:04 Urine Color YELLOW Urine Clarity CLEAR Urine pH 6.5 Ur Specific [place] 1.010 Urine Protein NEGATIVE Urine Glucose (UA) NEGATIVE Urine Ketones NEGATIVE Urine Occult Blood NEGATIVE Urine Nitrite NEGATIVE Urine Bilirubin NEGATIVE Urine Urobilinogen 0.2 (NORMAL) Ur Leukocyte Esterase NEGATIVE Ur Microscopic Review NOT INDICATED Urine Culture Comments NOT INDICATED Urine HCG, Qual POSITIVE PD MEDICAL DECISION MAKING - ED course ED course: She presents with ear pain and has otitis media, but also some symptoms that are basically concerning for which is present on evaluation with an intrauterine identified on ultrasound. Departure - Departure Disposition: 01 Home, Self Care Clinical Impression: Otitis media Qualifiers: Otitis media type: suppurative Chronicity: acute Laterality: bilateral Recurrence: recurrent Spontaneous tympanic membrane rupture: without spontaneous rupture Qualified Code(s): H66.006 - Acute suppurative otitis media without spontaneous rupture of ear drum, recurrent, bilateral Qualifiers: Weeks of gestation: less than 8 weeks Qualified Code(s): Z3A.01 - Less than 8 weeks gestation of Condition: Good Record reviewed to determine appropriate education?: Yes Instructions: ED Otitis Media Acute Adult, ED Care Follow-Up: [facility] [Provider Group] Prescriptions: Amoxicillin 500 mg PO TID #30 capsule Pnv No.122/Iron/Folic Acid [ Multi Tablet] 1 each PO DAILY #90 tablet Comments: Your blood pressure was elevated today on check into the emergency department. This does not mean that you have hypertension, it is a common phenomenon to come to the emergency department and have elevated blood pressure. I recommend that you see your primary care physician within the week to have it rechecked when you are feeling better.
[2019-01-17 22:40] VITALS: BP 154/84
== END 2019-01-17 22:43 | disposition home or self-care (01) ==
LOC: ED 21:43
DX: O26.891 Other specified pregnancy related conditions, first trimester (principal); H66.006 Acute suppurative otitis media without spontaneous rupture of ear drum, recurrent, bilateral; Z3A.01 Less than 8 weeks gestation of pregnancy
CPT/HCPCS: 81003; 81025; 99283; A9270; 81001; 87086

== ENCOUNTER 2019-02-05 09:24 | Outpatient (CLI) | payer MEDICAID ==
--- NOTE | 2019-02-05 14:56 | Ultrasound Report ---
Reason: TEST POSITIVE Procedure Date: 02/05/2019 Accession Number: [id number] / [id number] Procedure: US - OB First Trimester CPT Code: FULL RESULT: EXAM: FIRST TRIMESTER OBSTETRIC ULTRASOUND (Less than 11 weeks) EXAM DATE: 02/05/2019 10:00 AM. CLINICAL HISTORY: TEST POSITIVE. LMP: Unknown. COMPARISONS: None. TECHNIQUE: Transabdominal ultrasound examination with static image documentation. CLINICAL DATES: EGA 9 weeks 3 days with YOANNA 09/07/2019 based on current ultrasound/crown-rump length. ASSESSMENT: Gestational Sac: Single intrauterine. Mean gestational sac diameter: 37 mm = 8 weeks 6 days. Embryo: CRL (crown-rump length) 26 mm = 9 weeks 3 days. Cardiac activity: 166 beats per minute. Yolk sac: 2.9 mm. Amniotic fluid: Not accurately assessed at this gestational age. Early placenta: Not visible at this gestational age. Other: No perigestational fluid collection demonstrated. MATERNAL STRUCTURES: Uterus: Anteverted/Retroverted. Prominent parametrial veins. Cervix: Closed. Right Ovary/Adnexa: The ovary measures 4 x 1.7 x 2.2 cm, volume 7.8 cc. Fine detail limited, but otherwise unremarkable. Left Ovary/Adnexa: The ovary measures 3.3 x 2.1 x 2.4 cm, volume 8.8 cc. Fine detail limited, but otherwise unremarkable Free Fluid: None. Other: None. IMPRESSION: 1. Single viable intrauterine at EGA 9 weeks 3 days with YOANNA 09/07/2019 based on crown-rump length. Unknown clinical dates/LMP 2. Assigned dating is YOANNA 09/07/2019 based on current ultrasound. RADIA
== END 2019-02-05 09:25 | disposition home or self-care (01) ==
LOC: DI 09:24
PROVIDERS: ATTEND Registered Nurse
DX: Z32.01 Encounter for pregnancy test, result positive (principal); Z3A.09 9 weeks gestation of pregnancy
CPT/HCPCS: 76801

== ENCOUNTER 2019-02-09 21:03 | Emergency (ER) | payer MEDICAID ==
--- NOTE | 2019-02-09 21:34 | ED Physician Documentation ---
PD HPI FEMALE - Stated complaint Stated Complaint: FEM /9 WKS PREG - Chief complaint Chief Complaint: Abd Pain - History obtained from History obtained from: Patient, Family - History of Present Illness Timing - onset: Today Timing - duration: Hours Timing - details: Abrupt onset, Now resolved Associated symptoms: Vaginal bleeding Contributing factors: OB-RESTROOMS OR LOUNGES MAID History: G (2), P (1) Similar symptoms before: Has not had sx before Recently seen: Clinic - Additional information Additional information: 28-year-old female who is 10 weeks by recent ultrasound 1 week ago has a positive blood and she has began having some cramping and bleeding this evening. Since she has been to the emergency department she has been back into the bathroom she is not having any current spotting or bleeding and her cramping is now down to a 1. She has not had this with her prior . She states the amount of blood was spotting only. Review of Systems Constitutional: denies: Fever, Chills Eyes: denies: Decreased vision Ears: denies: Ear pain Nose: reports: Congestion. denies: Rhinorrhea / runny nose Throat: denies: Sore throat Cardiac: denies: Chest pain / pressure, Palpitations Respiratory: denies: Dyspnea, Cough GI: denies: Abdominal Pain, Nausea, Vomiting, Constipation, Diarrhea : reports: Vaginal bleeding, Other (pelvic cramping). 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 HEENT: None Psych: Anxiety Musculoskeletal: None Derm: None - Past Surgical History Past Surgical History: Yes General: Appendectomy /RESTROOMS OR LOUNGES MAID: section - Present Medications Home Medications: Ambulatory Orders Medication Instructions Recorded Confirmed Bcp 10/28/18 Fluconazole [Diflucan] 150 mg PO ONCE #1 tablet 10/28/18 Metronidazole [Flagyl] 500 mg PO BID #20 tablet 10/28/18 Sulfamethox/Trimeth 800/160 1 each PO BID #6 tablet 10/28/18 [Bactrim Ds 800/160] Amoxicillin 500 mg PO TID #30 capsule 01/17/19 Pnv No.122/Iron/Folic Acid 1 each PO DAILY #90 tablet 01/17/19 [ Multi Tablet] - Allergies Allergies/Adverse Reactions: Allergies Allergy/AdvReac Type Severity Reaction Status Date / Time No Known Drug Allergies Allergy Verified 02/09/19 21:25 - Social History Does the pt smoke?: No Smoking Status: Never smoker Does the pt drink ETOH?: No Does the pt have substance abuse?: No - Immunizations Immunizations are current?: No Immunizations: TDAP >10years/unknown - POLST Patient has POLST: No PD ED PE NORMAL - Vitals Vital signs reviewed: Yes (hypertensive mild ) - General General: Alert and oriented X 3, No acute distress, Well developed/nourished - HEENT HEENT: Atraumatic, PERRL, EOMI - Respiratory Respiratory: No respiratory distress - Abdomen Abdomen: Soft, Non tender - Derm Derm: Normal color, Warm and dry, No rash - Extremities Extremities: No deformity, No edema - Neuro Neuro: Alert and oriented X 3, director food safety 2-12 intact, No motor deficit, No sensory deficit, Normal speech Eye Opening: Spontaneous Motor: Obeys Commands Verbal: Oriented GCS Score: 15 - Psych Psych: Normal mood, Normal affect Results - Vitals Vitals: Vital Signs - 24 hr 02/09/19 21:22 Temperature 36.1 C L Heart Rate 99 Respiratory 16 Rate Blood Pressure 134/83 H O2 Saturation 99 Oxygen O2 Source Room air - Labs Labs: Laboratory Tests 02/09/19 21:35 Urine Color YELLOW Urine Clarity CLEAR Urine pH 5.5 Ur Specific [place] 1.010 Urine Protein NEGATIVE Urine Glucose (UA) NEGATIVE Urine Ketones NEGATIVE Urine Occult Blood NEGATIVE Urine Nitrite NEGATIVE Urine Bilirubin NEGATIVE Urine Urobilinogen 0.2 (NORMAL) Ur Leukocyte Esterase NEGATIVE Ur Microscopic Review NOT INDICATED Urine Culture Comments NOT INDICATED PD MEDICAL DECISION MAKING - ED course Complexity details: reviewed old records, reviewed results, re-evaluated patient, considered differential, d/w patient, d/w family ED course: 28-year-old female a positive blood with vaginal spotting today is 10 weeks and on bedside ultrasound examination there is a viable fetus with a heart rate of 156. The patient is reassured and she will reduce her workload at work. Departure - Departure Disposition: 01 Home, Self Care Clinical Impression: Threatened affecting intrauterine Condition: Stable Instructions: ED Miscarriage Poss Follow-Up: Marc Fischer PA-C [Primary Care Provider] - Forms: Activity restrictions
[2019-02-09 21:44] LABS: BILIRUBIN,URINE NEGATIVE (NEGATIVE); GLUCOSE, URINE (UA) NEGATIVE (NEGATIVE); KETONES,URINE (UA) NEGATIVE (NEGATIVE); LEUKOCYTE ESTERASE, URINE NEGATIVE (NEGATIVE); NITRITE,URINE NEGATIVE (NEGATIVE); OCCULT BLOOD,URINE NEGATIVE (NEGATIVE); PH,URINE 5.5 PH (5.0-7.5); PROTEIN,URINE NEGATIVE (NEGATIVE); UROBILINOGEN,URINE 0.2 (NORMAL) E.U./dL (NORMAL)
[2019-02-09 21:49] LABS: CLARITY,URINE CLEAR (CLEAR)
[2019-02-09 22:19] VITALS: BP 138/81
== END 2019-02-09 22:21 | disposition home or self-care (01) ==
LOC: ED 21:03
DX: O20.0 Threatened abortion (principal); Z3A.09 9 weeks gestation of pregnancy
CPT/HCPCS: 81001; 81003; 87086; 99283

== ENCOUNTER 2019-02-14 08:00 | Outpatient (CLI) | payer MEDICAID ==
[2019-02-14 18:50] LABS: BASOPHILS % (AUTO) 0.4 %; EOSINOPHILS % (AUTO) 0.5 %; HGB - HEMOGLOBIN 13.2 g/dL (12.0-16.0); LYMPHOCYTES % (AUTO) 23.6 %; MEAN CORPUSCULAR HEMOGLOBIN 30.5 pg (27.0-31.0); MEAN CORPUSCULAR HGB CONC 33.8 g/dL (32.0-36.0); MEAN PLATELET VOLUME 7.3 fL (7.9-10.8); MONOCYTES # (AUTO) 0.4 10^3/uL (0.0-1.0); MONOCYTES % (AUTO) 4.8 %; NEUTROPHILS # (AUTO) 5.9 10^3/uL (1.5-6.6); NEUTROPHILS % (AUTO) 70.7 %; PLT - PLATELET COUNT 263 10^3/uL (130-450); RED BLOOD COUNT 4.32 10^6/uL (4.20-5.40); RED CELL DISTRIBUTION WIDTH 12.9 % (12.0-15.0); WHITE BLOOD COUNT 8.4 x10^3/uL (4.8-10.8)
[2019-02-15 15:48] LABS: HEPATITIS B SURFACE ANTIGEN NON-REACTIVE (NON-REACTIVE)
[2019-02-15 16:02] LABS: HEPATITIS C ANTIBODY NON-REACTIVE (NON-REACTIVE)
[2019-02-15 16:25] LABS: HIV AG/AB 4TH GEN NON-REACTIVE (NON-REACTIVE)
== END 2019-02-14 08:01 | disposition home or self-care (01) ==
LOC: LAB.N 08:00
PROVIDERS: ATTEND Obstetrics & Gynecology
DX: O20.0 Threatened abortion (principal); Z3A.09 9 weeks gestation of pregnancy
CPT/HCPCS: 36415; 80306; 81001; 81599; 85025; 86592; 86762; 86803; 86850; 86900; 86901; 87340; 87389

== ENCOUNTER 2019-02-14 08:00 | Outpatient (CLI) | payer MEDICAID ==
[2019-02-14 18:23] LABS: MUDS CUTOFF CONCENTRATIONS CUTOFF CONC BELOW:
[2019-02-14 19:12] LABS: AMPHETAMINE SCREEN,URINE NEGATIVE (NEGATIVE); BENZODIAZEPINES SCREEN, URINE NEGATIVE (NEGATIVE); COCAINE SCREEN URINE NEGATIVE (NEGATIVE); METHADONE SCREEN, URINE NEGATIVE (NEGATIVE); METHAMPHETAMINES SCREEN, URINE NEGATIVE (NEGATIVE); OPIATE SCREEN, URINE NEGATIVE (NEGATIVE); OXYCODONE SCREEN, URINE NEGATIVE (NEGATIVE); PROPOXYPHENE SCREEN, URINE NEGATIVE (NEGATIVE); TRICYCLIC ANTIDEPRESSANT,URINE NEGATIVE (NEGATIVE)
[2019-02-14 19:20] LABS: BILIRUBIN,URINE NEGATIVE (NEGATIVE); GLUCOSE, URINE (UA) NEGATIVE (NEGATIVE); KETONES,URINE (UA) NEGATIVE (NEGATIVE); LEUKOCYTE ESTERASE, URINE NEGATIVE (NEGATIVE); NITRITE,URINE NEGATIVE (NEGATIVE); OCCULT BLOOD,URINE NEGATIVE (NEGATIVE); PH,URINE 7.5 PH (5.0-7.5); PROTEIN,URINE NEGATIVE (NEGATIVE); UROBILINOGEN,URINE 0.2 (NORMAL) E.U./dL (NORMAL)
[2019-02-14 19:38] LABS: BACTERIA,URINE None Seen /HPF (None Seen); CLARITY,URINE CLEAR (CLEAR); RBC,URINE None Seen /HPF (0-5); SQUAMOUS EPITHELIAL CELL,UR NONE SEEN (<= Few)
== END 2019-02-14 23:59 | disposition home or self-care (01) ==
LOC: LAB.R 08:00
PROVIDERS: ATTEND Obstetrics & Gynecology
DX: O20.0 Threatened abortion (principal); Z3A.09 9 weeks gestation of pregnancy
CPT/HCPCS: 80306; 81001; 87086

== ENCOUNTER 2019-03-18 13:13 | Outpatient (CLI) | payer MEDICAID | END 2019-03-18 13:14 | disposition home or self-care (01) | LOC: LAB 13:13 | PROVIDERS: ATTEND Obstetrics & Gynecology | DX: Z3A.14 14 weeks gestation of pregnancy (principal); Z36.9 Encounter for antenatal screening, unspecified | CPT/HCPCS: 36415; 81599; 82105; 82677; 84702; 86336 ==

== ENCOUNTER 2019-04-18 13:21 | Outpatient (CLI) | payer MEDICAID ==
--- NOTE | 2019-04-19 13:32 | Ultrasound Report ---
Reason: ENCOUNTER FOR OTHER SPEC SCREENING Procedure Date: 04/18/2019 Accession Number: [id number] / [id number] Procedure: US - OB Detailed Eval CPT Code: FULL RESULT: EXAM: COMPLETE OBSTETRICAL ULTRASOUND EXAM DATE: 04/18/2019 03:30 PM. CLINICAL HISTORY: anatomic survey. COMPARISON: OB FIRST TRIMESTER 02/05/2019 9:31 AM. TECHNIQUE: Real-time sonographic evaluation of the fetus performed by the supervisor plate pasting. Multiple real estate representative static images were saved for review. DATING: Established EGA 19 weeks 5 days with YOANNA 09/07/2019 based on working obstetric date. EGA 19 weeks 6 days with YOANNA 09/06/2019 based on the current ultrasound. GENERAL EVALUATION Vazquez . Cardiac activity: 135 bpm. movement: Visualized. Presentation: Breech Placenta: Anterior position. Placenta is low lying, 1.1 cm from the cervix. Umbilical cord: 3 vessel cord. Central placental cord origin. Amniotic fluid: Subjectively normal. MVP 4.2 cm. MINISTERIO 13.3 cm. BIOMETRY Bi-Parietal Diameter (BPD): 4.7 cm, 20 weeks 1 day Head Circumference (HC): 17.7 cm, 20 weeks 1 day Abdominal Circumference (AC): 14.5 cm, 19 weeks 5 days Femur Length (FL): 3.1 cm, 19 weeks 4 days Estimated Weight: 315 g, 52nd percentile for 19 weeks 5 days. ANATOMY The intracranial structures, profile, face/nose/lips, spine, 4 chamber heart and outflow tracts, stomach, abdominal wall and cord insertion, diaphragm, kidneys, bladder, and extremities were visualized and demonstrate no abnormality. MATERNAL STRUCTURES Uterus: Unremarkable. Cervix: Long and closed. Transabdominal length 5.1 cm. Right ovary/adnexa: Unremarkable. Left ovary/adnexa: Unremarkable. Free fluid: None. IMPRESSION: 1. Vazquez live intrauterine with gestational age 19 weeks 5 days based on working obstetric date. 2. Estimated weight is within expected limits for assigned dating. 3. Normal anatomic survey. No anatomic abnormalities are detected at this time. 4. Anterior low lying placenta, 1.1 cm from the internal cervical os. Recommend follow-up transvaginal ultrasound at or before 32 weeks to assess for resolution and to exclude potential vasa previa. RADIA
== END 2019-04-18 13:22 | disposition home or self-care (01) ==
LOC: DI 13:21
PROVIDERS: ATTEND Obstetrics & Gynecology
DX: Z36.89 Encounter for other specified antenatal screening (principal)
CPT/HCPCS: 76811

== ENCOUNTER 2019-04-30 18:56 | Emergency (ER) | payer MEDICAID ==
[2019-04-30 19:04] VITALS: BP 134/70
--- NOTE | 2019-04-30 19:14 | ED Physician Documentation ---
PD HPI SKIN - Stated complaint Stated Complaint: HIVES - Chief complaint Chief Complaint: Wound - History obtained from History obtained from: Patient - History of Present Illness Timing - onset: Today Timing - duration: Days (1) Timing - details: Abrupt onset Location: Chest, Abdomen Quality / character: Itchy. No: Raised, Vesicular Contributing factors: No: Exposed to medication, Exposed to food, Exposed to soap / lotion Similar symptoms before: Has not had sx before Recently seen: Not recently seen - Additional information Additional information: Is a 29-year-old who is 5 months complaints that she noticed a rash on her abdomen this morning. She had 2 small areas previously but then it was spread more now onto the left chest and breast. Very itchy and seems to be getting worse in the day. She thought it might be related to heat. She denies any sore throat, no fever. Her ears have been hurting just a little bit. No history of similar rash. No exposure to any known allergens. 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 - Present Medications Home Medications: Ambulatory Orders Medication Instructions Recorded Confirmed Pnv No.122/Iron/Folic Acid 1 each PO DAILY #90 tablet 01/17/19 [ Multi Tablet] Loratadine [Claritin] 10 mg PO DAILY 04/30/19 04/30/19 - Allergies Allergies/Adverse Reactions: Allergies Allergy/AdvReac Type Severity Reaction Status Date / Time No Known Drug Allergies Allergy Verified 04/30/19 19:04 - Social History Does the pt smoke?: No Smoking Status: Never smoker Does the pt drink ETOH?: No Does the pt have substance abuse?: No - Immunizations Immunizations are current?: No Immunizations: TDAP >10years/unknown - POLST Patient has POLST: No PD ED PE NORMAL - Vitals Vital signs reviewed: Yes - General General: Alert and oriented X 3, No acute distress, Well developed/nourished - HEENT HEENT: Ears normal, Moist mucous membranes, Pharynx benign - Neck Neck: No adenopathy - Abdomen Abdomen: Other ( heart tones 150) - Derm Derm: Other (There are several small annular lesions with irregular borders. The border is slightly raised and just hyperpigmented on her upper abdominal wall and left breast.There are no lesions noted on her back upper chest face or upper extremities.) Results - Vitals Vitals: Vital Signs - 24 hr 04/30/19 18:59 Temperature 36.3 C L Heart Rate 96 Respiratory 16 Rate Blood Pressure 134/70 H O2 Saturation 100 Oxygen O2 Source Room air PD MEDICAL DECISION MAKING - ED course Complexity details: d/w patient ED course: This rash has the appearance of tinea versicolor. Also considered guttate psoriasis however she has no signs or symptoms consistent with a strep infection. She is and this could just be a rash of . All of this was discussed with her. I do not see any indication to test for strep given her physical exam. I have recommended Selsun Blue shampoo as treatment. Departure - Departure Disposition: 01 Home, Self Care Clinical Impression: Tinea versicolor Condition: Good Instructions: ED Rash Heat Ch Follow-Up: Marc Fischer PA-C [Primary Care Provider] - Comments: He could make this rash a little bit more prominent so try to avoid getting overheated and sweaty. Selsun Blue shampoo is a daily wash will help reduce the appearance. Follow-up with etcher hand if not improving.
== END 2019-04-30 19:39 | disposition home or self-care (01) ==
LOC: ED 18:56
DX: O99.712 Diseases of the skin and subcutaneous tissue complicating pregnancy, second trimester (principal); B36.0 Pityriasis versicolor
CPT/HCPCS: 99282; 99283

== ENCOUNTER 2019-05-24 13:29 | Outpatient (CLI) | payer MEDICAID ==
[2019-05-24 13:53] LABS: BILIRUBIN,URINE NEGATIVE (NEGATIVE); GLUCOSE, URINE (UA) NEGATIVE (NEGATIVE); KETONES,URINE (UA) NEGATIVE (NEGATIVE); LEUKOCYTE ESTERASE, URINE NEGATIVE (NEGATIVE); NITRITE,URINE NEGATIVE (NEGATIVE); OCCULT BLOOD,URINE NEGATIVE (NEGATIVE); PROTEIN,URINE NEGATIVE (NEGATIVE); UROBILINOGEN,URINE 0.2 (NORMAL) E.U./dL (NORMAL)
[2019-05-24 13:55] LABS: BACTERIA,URINE None Seen /HPF (None Seen); CLARITY,URINE CLEAR (CLEAR); RBC,URINE None Seen /HPF (0-5); SQUAMOUS EPITHELIAL CELL,UR NONE SEEN (<= Few)
[2019-05-24 14:20] VITALS: BP 125/76
[2019-05-24 14:34] LABS: BASOPHILS % (AUTO) 0.2 %; EOSINOPHILS % (AUTO) 0.4 %; HGB - HEMOGLOBIN 11.9 g/dL (12.0-16.0); LYMPHOCYTES # (AUTO) 1.6 10^3/uL (1.5-3.5); LYMPHOCYTES % (AUTO) 16.7 %; MEAN CORPUSCULAR HEMOGLOBIN 30.1 pg (27.0-31.0); MEAN CORPUSCULAR HGB CONC 33.1 g/dL (32.0-36.0); MEAN CORPUSCULAR VOLUME 90.9 fL (81.0-99.0); MONOCYTES # (AUTO) 0.5 10^3/uL (0.0-1.0); MONOCYTES % (AUTO) 5.1 %; NEUTROPHILS # (AUTO) 7.3 10^3/uL (1.5-6.6); NEUTROPHILS % (AUTO) 77.1 %; PLT - PLATELET COUNT 245 10^3/uL (130-450); RED BLOOD COUNT 3.95 10^6/uL (4.20-5.40); RED CELL DISTRIBUTION WIDTH 13.8 % (12.0-15.0); WHITE BLOOD COUNT 9.4 x10^3/uL (4.8-10.8)
--- NOTE | 2019-05-24 15:12 | PROVIDER PROGRESS NOTE ---
- HPI Chief Complaint: Other (Abdominal pain History chief complaint: The patient came to the obstetrical department complaining of left sided anterior abdominal pain that occurred when she was eating.She was a little nauseated when started but the nausea went away. She denies any fevers, chills, nausea, vomiting, constipation or diarrhea. She states she usually has 2 bowel movements per day and this has continued.Her course to date has been unremarkable. She denies any contractions.She denies any back tenderness.She denies any vaginal bleeding or fluid.) Current : Current EDU 09/07/19 Gestation 24 Weeks and 6 Days 2 Para 1 Vital Signs Temperature 36.8 C 05/24/19 13:45 Heart Rate 126 H 05/24/19 13:45 Respiratory Rate 20 05/24/19 13:45 Blood Pressure 125/76 05/24/19 13:45 O2 Saturation 98 05/24/19 13:45 Temperature 36.8 C 05/24/19 13:45 Heart Rate 126 H 05/24/19 13:45 Respiratory Rate 20 05/24/19 13:45 Blood Pressure 125/76 05/24/19 13:45 O2 Saturation 98 05/24/19 13:45 - Exam Lungs: Lungs clear to auscultation bilaterally without wheezes, rales or rhonchi. Heart: Heart had a regular rate and rhythm without murmur, S3-S4 gallop rhythms, clicks, rubs, thrills or heaves. Abdomen: The abdomen was soft, pliable and nontender. She had normoactive bowel sounds. No rigidity, rebound or guarding was appreciated. The uterus is gravid.The patient related no pain at all with deep palpation with either the stethoscope or my hand.No suprapubic tenderness was appreciated.Danny sign is negative bilaterally Laboratory Tests 05/24/19 05/24/19 05/24/19 13:40 14:26 14:26 WBC 9.4 RBC 3.95 L Hgb 11.9 L Hct 35.9 L MCV 90.9 MCH 30.1 MCHC 33.1 RDW 13.8 Plt Count 245 MPV 9.0 Neut # (Auto) 7.3 H Lymph # (Auto) 1.6 [place] # (Auto) 0.5 Eos # (Auto) 0.0 Baso # (Auto) 0.0 Absolute Nucleated RBC 0.00 Nucleated RBC % 0.0 Urine Color YELLOW Urine Clarity CLEAR Urine pH 7.0 Ur Specific [place] <=1.005 Urine Protein NEGATIVE Urine Glucose (UA) NEGATIVE Urine Ketones NEGATIVE Urine Occult Blood NEGATIVE Urine Nitrite NEGATIVE Urine Bilirubin NEGATIVE Urine Urobilinogen 0.2 (NORMAL) Ur Leukocyte Esterase NEGATIVE Urine RBC None Seen Urine WBC 0-3 Ur Squamous Epith Cells NONE SEEN Urine Bacteria None Seen Urine Culture Comments NOT INDICATED Blood Type A POSITIVE - Procedures OB Procedure Performed: NST Diagnosis/Indication for NST: Other (Abdominal pain) NST Procedure: No contractions were noted on the external monitor. There was a reactive strip. Service Date of procedure: 05/24/19 Findings: Intrauterine at 24 weeks and 6 days gestation Left-sided abdominal pain-probable gastrointestinal - Plan Plan: The patient was discharged home.She will use warm moist heat. I do not feel that this Jennifer kidney stone at this point in time her urine was clear Scheidt her white sign was negative. She has not had any diarrhea but I did tell her that she might possibly be startingA gastroenteritis. I discussed the other distinct possibility that this was either gas in the left descending colon into the sigmoid or possibly evenThe uterus impinging on some nerves in the abdomen or on the ureter.As long as she does well she will follow-up in the office in 1 week.She knows to call sooner ifOr she has any signs of labor. any of her symptoms worsen
[2019-05-24 20:53] LABS: TRICHOMONAS VAGINALIS DNA NEGATIVE (NEGATIVE)
[2019-05-25 12:03] LABS: HEPATITIS B SURFACE ANTIGEN NON-REACTIVE (NON-REACTIVE)
[2019-05-27 14:33] LABS: HIV AG/AB 4TH GEN NON-REACTIVE (NON-REACTIVE)
== END 2019-05-24 15:20 | disposition home or self-care (01) ==
LOC: WFO 13:29 → FBP 13:32 → WFO 15:20
PROVIDERS: ATTEND Obstetrics & Gynecology
DX: O99.89 Other specified diseases and conditions complicating pregnancy, childbirth and the puerperium (principal); R10.9 Unspecified abdominal pain; Z3A.24 24 weeks gestation of pregnancy
CPT/HCPCS: 36415; 81001; 85025; 86762; 86780; 86900; 86901; 87086; 87340; 87389; 87491; 87591; 87661; 99212

== ENCOUNTER 2019-06-24 08:00 | Outpatient (CLI) | payer MEDICAID | END 2019-06-24 08:01 | disposition home or self-care (01) | LOC: LAB.N 08:00 | PROVIDERS: ATTEND Obstetrics & Gynecology | DX: R73.09 Other abnormal glucose (principal) | CPT/HCPCS: 36415; 82950 ==

== ENCOUNTER 2019-07-07 13:18 | Outpatient (CLI) | payer MEDICAID ==
[2019-07-07 14:21] LABS: BILIRUBIN,URINE NEGATIVE (NEGATIVE); GLUCOSE, URINE (UA) NEGATIVE (NEGATIVE); KETONES,URINE (UA) NEGATIVE (NEGATIVE); LEUKOCYTE ESTERASE, URINE NEGATIVE (NEGATIVE); NITRITE,URINE NEGATIVE (NEGATIVE); OCCULT BLOOD,URINE NEGATIVE (NEGATIVE); PROTEIN,URINE NEGATIVE (NEGATIVE); UROBILINOGEN,URINE 0.2 (NORMAL) E.U./dL (NORMAL)
[2019-07-07 14:24] LABS: CLARITY,URINE CLEAR (CLEAR)
[2019-07-07 14:36] LABS: BACTERIA,URINE Rare /HPF (None Seen); RBC,URINE 0-5 /HPF (0-5); SQUAMOUS EPITHELIAL CELL,UR FEW Squamous (<= Few)
[2019-07-07 15:11] VITALS: BP 119/64
[2019-07-07 16:44] LABS: CANDIDA GROUP DNA POSITIVE (NEGATIVE); CANDIDA KRUSEI DNA NEGATIVE (NEGATIVE); TRICHOMONAS VAGINALIS DNA NEGATIVE (NEGATIVE)
--- NOTE | 2019-07-07 17:05 | Ultrasound Report ---
Reason: cewrvical length Procedure Date: 07/07/2019 Accession Number: [id number] / [id number] Procedure: US - OB Transvaginal CPT Code: FULL RESULT: EXAM: LIMITED OBSTETRICAL ULTRASOUND EXAM DATE: 07/07/2019 03:58 PM. CLINICAL HISTORY: Pelvic pressure. Cervix burning. Check cervical length. COMPARISON: OB DETAILED EVAL 04/18/2019 1:40 PM. TECHNIQUE: Real-time sonographic evaluation of the fetus performed by the medical assistant ob gyn. Multiple data entry representative static images were saved for review. Transvaginal imaging to more accurately evaluate cervical length. DATING: Established EGA 31 weeks 1 day with YOANNA 09/07/2019. GENERAL EVALUATION Vazquez . Cardiac activity: 137 bpm. MATERNAL STRUCTURES Cervix long and closed, 5.7 cm long on transvaginal imaging. IMPRESSION: 1. Vazquez live intrauterine with gestational age 31 weeks 1 day based on established YOANNA. 2. Cervix closed, 5.7 cm long. RADIA
[2019-07-07 21:36] LABS: TRICHOMONAS VAGINALIS DNA NEGATIVE (NEGATIVE)
--- NOTE | 2019-07-22 22:56 | PROVIDER PROGRESS NOTE ---
- HPI Chief Complaint: Other (Carolyn is a 29-year-old at 31 weeks and 1 day estimated gestational age here with some vaginal spotting) Current : Current EDU 09/07/19 Gestation 31 Weeks and 1 Days 2 Para 1 Vital Signs Temperature 98.4 F 07/07/19 13:32 Heart Rate 105 H 07/07/19 13:32 Respiratory Rate 18 07/07/19 13:32 Blood Pressure 125/64 07/07/19 13:32 O2 Saturation 97 07/07/19 13:32 Temperature 98.4 F 07/07/19 13:32 Heart Rate 101 H 07/07/19 15:11 Respiratory Rate 16 07/07/19 15:11 Blood Pressure 119/64 07/07/19 15:11 O2 Saturation 99 07/07/19 15:11 - Exam GEN: no apparent distress fibronectin negative Transvaginal cervical length 5.7 cm EFM AGA toco quiet - Procedures OB Procedure Performed: NST NST Procedure: EFM: Appropriate for gestational age Western quiet Findings: FFN neg TVCL 5.7 cm Vaginitis panel positive for BV/tram - Plan Plan: Patient is a 29-year-old at 31 weeks 1 day estimated gestational age who presented for with vaginal bleeding fibronectin was negative Transvaginal cervical length was reassuring at 5.7 cm SVE was reassuring. EFM is appropriate for gestational age and tocometry was quiet Vaginitis panel was positive for both bacterial vaginosis and Tram. Patient was reassured with regard to labor. She was provided with a prescription for metronidazole for bacterial vaginosis and clindamycin cream for vaginal Tram. She was discharged home with routine discharge instructions.
== END 2019-07-07 16:25 | disposition home or self-care (01) ==
LOC: WFO 13:18 → FBP 13:20 → WFO 16:25
PROVIDERS: ATTEND Obstetrics & Gynecology
DX: O26.853 Spotting complicating pregnancy, third trimester (principal); O23.593 Infection of other part of genital tract in pregnancy, third trimester; N76.0 Acute vaginitis; O98.813 Other maternal infectious and parasitic diseases complicating pregnancy, third trimester; B37.3 Candidiasis of vulva and vagina; Z3A.31 31 weeks gestation of pregnancy
CPT/HCPCS: 76817; 81001; 82731; 87086; 87491; 87591; 87661; 87801; 99213

== ENCOUNTER 2019-07-22 10:04 | Outpatient (CLI) | payer MEDICAID | END 2019-07-22 10:05 | disposition home or self-care (01) | LOC: LAB 10:04 | PROVIDERS: ATTEND Obstetrics & Gynecology | DX: O99.810 Abnormal glucose complicating pregnancy (principal) | CPT/HCPCS: 36415; 82951; 82952 ==

== ENCOUNTER 2019-08-08 08:00 | Outpatient (CLI) | payer MEDICAID | END 2019-08-08 23:59 | disposition home or self-care (01) | LOC: LAB.R 08:00 | PROVIDERS: ATTEND Obstetrics & Gynecology | DX: Z36.85 Encounter for antenatal screening for Streptococcus B (principal) | CPT/HCPCS: 87797 ==

== ENCOUNTER 2019-08-16 08:00 | Outpatient (CLI) | payer MEDICAID ==
[2019-08-16 22:53] LABS: TRICHOMONAS VAGINALIS DNA NEGATIVE (NEGATIVE)
== END 2019-08-16 23:59 | disposition home or self-care (01) ==
LOC: LAB.R 08:00
PROVIDERS: ATTEND Obstetrics & Gynecology
DX: O09.90 Supervision of high risk pregnancy, unspecified, unspecified trimester (principal)
CPT/HCPCS: 87491; 87591; 87661

== ENCOUNTER 2019-08-24 22:52 | Outpatient (CLI) | payer MEDICAID ==
[2019-08-24 23:55] VITALS: BP 109/74
--- NOTE | 2019-09-05 09:56 | PROVIDER PROGRESS NOTE ---
- HPI Current : Current EDU 09/07/19 Gestation 38 Weeks and 0 Days 2 Para 1 Vital Signs Temperature 37.4 C 08/24/19 23:08 Heart Rate 119 H 08/24/19 23:08 Respiratory Rate 20 08/24/19 23:08 Blood Pressure 138/84 H 08/24/19 23:08 O2 Saturation 100 08/24/19 23:08 Temperature 37.4 C 08/24/19 23:09 Heart Rate 109 H 08/24/19 23:54 Respiratory Rate 20 08/24/19 23:54 Blood Pressure 109/74 08/24/19 23:54 O2 Saturation 100 08/24/19 23:09 - Plan Plan: Intrauterine at 38 weeks gestation False labor Previous section Plan: The patient had been checked by nursing over the last hour to 2 hours. Serial cervical checks revealed no cervical change. This appears to be false labor. She will be sent home. She will follow-up in the clinic for her regular appointment. She will return to OB if she has any further problems or symptoms.
== END 2019-08-25 02:35 | disposition home or self-care (01) ==
LOC: WFO 22:52 → FBP 22:54 → WFO 08-25 02:35
PROVIDERS: ATTEND Obstetrics & Gynecology
DX: O47.1 False labor at or after 37 completed weeks of gestation (principal); O34.219 Maternal care for unspecified type scar from previous cesarean delivery; Z3A.38 38 weeks gestation of pregnancy
CPT/HCPCS: 99213

== ENCOUNTER 2019-08-26 10:42 | Outpatient (CLI) | payer MEDICAID ==
[2019-08-26 11:19] VITALS: BP 113/67
[2019-08-26] MEDS ORDERED: ACETAMINOPHEN 500 MG TABLET PO SCH ×2 (12:07→13:00)
[2019-08-26 16:00] LABS: CANDIDA GROUP DNA NEGATIVE (NEGATIVE); CANDIDA KRUSEI DNA NEGATIVE (NEGATIVE); TRICHOMONAS VAGINALIS DNA NEGATIVE (NEGATIVE)
[2019-08-26] MEDS ORDERED: LIDOCAINE MPF 1%-EPI 1:200000 30 ML VIAL ONE (21:25)
--- NOTE | 2019-09-02 01:01 | PROVIDER PROGRESS NOTE ---
- HPI Chief Complaint: Other (Patient is a 29-year-old G2, P1 at 38 weeks and 2 days estimated gestational age with history of prior who presents with painful contractions and headache. Has not taken any medications to manage her headache. No vision change or right upper quadrant tenderness. Endorses contractions. Denies loss of fluid/vaginal bleeding.) Current : Current EDU 09/07/19 Gestation 38 Weeks and 2 Days 2 Para 1 Vital Signs Temperature 97.7 F 08/26/19 11:09 Heart Rate 113 H 08/26/19 11:09 Respiratory Rate 16 08/26/19 11:09 Blood Pressure 113/67 08/26/19 11:09 O2 Saturation 100 08/26/19 11:09 Temperature 97.7 F 08/26/19 11:09 Heart Rate 113 H 08/26/19 11:09 Respiratory Rate 16 08/26/19 11:09 Blood Pressure 113/67 08/26/19 11:09 O2 Saturation 100 08/26/19 11:09 - Exam General: No apparent distress HEENT: NCAT CV: Regular rate Respiratory: Normal respiratory effort Abdomen: Gravid soft and nontender. Well-healed Pfannenstiel incision. Size greater than dates. Extremities: Bilateral lower extremity edema, symmetric. Nontender. Psych: Appropriate affect Neuro: Alert and oriented, normal gait and coordination SVE: Long/closed/high/posterior/firm - Procedures OB Procedure Performed: NST Diagnosis/Indication for NST: Other (Rule out labor) NST Procedure: 125 moderate variability 15 by 15 accelerations, no decelerations [place]: Every 2-3 minutes, mild to moderate Service Date of procedure: 08/26/19 Procedure Details: Category 1 tracing Findings: 29-year-old G2, P1 at 38 and 2 weeks estimated gestational age here for assessment of painful contractions. Serial cervical exams remain unchanged; closed/long/high/posterior/firm Patient was observed over more than 4 hours with no change in cervical exam Headache: -Resolved with acetaminophen 1000 mg p.o. x1 -Blood pressures within normal limits We reviewed that we cannot proceed with delivery via at this time. While she is having painful contractions, there is been no change in cervical exam. -Abdominal exam is benign and tracing is category 1 Given that she is less than 39 weeks estimated gestational age, proceeding with a is contraindicated in a setting where labor is not naturally occurring or there are no other clinical indication. Warning signs were reviewed. Patient was discharged home in the setting of prodromal labor.
== END 2019-08-26 17:00 | disposition home or self-care (01) ==
LOC: WFO 10:42 → FBP 10:44 → WFO 17:00 → FBP 20:23 → UNDOADMIN 20:23
PROVIDERS: ATTEND Obstetrics & Gynecology
DX: O34.211 Maternal care for low transverse scar from previous cesarean delivery (principal); Z3A.38 38 weeks gestation of pregnancy; R51 Headache
CPT/HCPCS: 87481; 87661; 87801; 99214; A9270

== ENCOUNTER 2019-08-26 19:40 | Inpatient (IN) | payer MEDICAID ==
[2019-08-26 20:13] LABS: RUPTURE OF MEMBRANES PLUS POSITIVE (NEGATIVE)
[2019-08-26] MEDS ORDERED: SODIUM CHLORIDE FLUSH 0.9% 10 ML SYRINGE ONE (20:38)
[2019-08-26 20:58] LABS: BASOPHILS % (AUTO) 0.2 %; EOSINOPHILS % (AUTO) 0.2 %; HGB - HEMOGLOBIN 11.4 g/dL (12.0-16.0); LYMPHOCYTES % (AUTO) 23.2 %; MEAN CORPUSCULAR HEMOGLOBIN 29.6 pg (27.0-31.0); MEAN CORPUSCULAR HGB CONC 33.6 g/dL (32.0-36.0); MEAN CORPUSCULAR VOLUME 88.1 fL (81.0-99.0); MEAN PLATELET VOLUME 9.4 fL (7.9-10.8); MONOCYTES # (AUTO) 0.6 10^3/uL (0.0-1.0); MONOCYTES % (AUTO) 6.7 %; NEUTROPHILS # (AUTO) 5.9 10^3/uL (1.5-6.6); NEUTROPHILS % (AUTO) 69.2 %; PLT - PLATELET COUNT 252 10^3/uL (130-450); RED BLOOD COUNT 3.85 10^6/uL (4.20-5.40); RED CELL DISTRIBUTION WIDTH 14.6 % (12.0-15.0); WHITE BLOOD COUNT 8.5 x10^3/uL (4.8-10.8)
--- NOTE | 2019-08-26 21:01 | ANESTHESIA ---
Pre-Anesthesia VS, & Labs - Diagnosis reapeat section - Procedure section Vital Signs: Temp Pulse Resp BP Pulse Ox 98.6 C H 112 H 20 145/89 H 98 08/26/19 20:05 08/26/19 20:05 08/26/19 20:05 08/26/19 20:05 08/26/19 20:05 Height 5 ft 5 in Weight (kg) 117.48 kg Body Mass Index 38.2 - NPO Other (1730) - Is Patient ?: Yes - Lab Results Current Lab Results: Laboratory Tests 08/26/19 20:40: WBC 8.5, RBC 3.85 L, Hgb 11.4 L, Hct 33.9 L, MCV 88.1, MCH 29.6, MCHC 33.6, RDW 14.6, Plt Count 252, MPV 9.4, Neut # (Auto) 5.9, Lymph # (Auto) 2.0, [place] # (Auto) 0.6, Eos # (Auto) 0.0, Baso # (Auto) 0.0, Absolute Nucleated RBC 0.00, Nucleated RBC % 0.0 Fish Bones: 08/26/19 20:40 Home Medications and Allergies Active Medications Lactated Ringer's (Lr) 1,000 mls @ 125 mls/hr IV .Q8H NUVIA Loratadine [Claritin] 10 mg PO DAILY 04/30/19 Allergies/Adverse Reactions: Allergies Allergy/AdvReac Type Severity Reaction Status Date / Time No Known Drug Allergies Allergy Verified 04/30/19 19:04 Anes History & Medical History - Anesthetic History Anesthesia Complications: reports: No previous complications - Medical History Cardiovascular: reports: None Pulmonary: reports: None Gastrointestinal: reports: None Urinary: reports: Other Neuro: reports: None Musculoskeletal: reports: None Endocrine/Autoimmune: reports: None Blood Disorders: reports: None Skin: reports: None Smoking Status: Never smoker - Surgical History General: Appendectomy Gynecologic: section Exam General: Alert Dental: WNL Mouth Opening: Greater than 4 Fingerbreadths Mallampati classification: II Thyromental Distance: greater than 6 cm Respiratory: Lungs clear Cardiovascular: Regular rate, Normal S1, Normal S2 Mental/Cognitive Status: Alert/Oriented X3 Plan Anesthesia Type: Spinal Consent for Procedure(s) Verified and Reviewed: Yes Code Status: Attempt Resuscitation ASA classification: 2-Mild systemic disease Is this case an emergency?: Yes
[2019-08-26] MEDS ORDERED: CITRIC ACID/SODIUM CITRATE 15 ML UDC PO ONE (21:08)
[2019-08-26] MEDS ORDERED: ceFAZolin 2 GM in SODIUM CHLORIDE 0.9% 100ML 100 ML IV SCH (21:09)
--- NOTE | 2019-08-26 21:16 | HISTORY & PHYSICAL EXAMINATION ---
Admit History - Visit Reason Visit Reason: Membranes rupture - : 2 Parity: 1 Risk/History: positive: Previous (29 yo with YOANNA 09/07/19 with hx of prior CS and LGA infant Size > dates. Sending for US for growth and fluid A pos/ Rub imm FAS wnl Glucola 152--> 3H OGTT normal other than 1 parameter TDaP complete per pt report--> need to confirm HSV neg GBS negative Breast pump RX given MOD: rLTCS scheduled for 09/04/19 Counseled to take ASA in future ) Smoking Status: Never smoker - Mother's Labs Mother's Blood Type: positive: A Mother's RH: positive: Positive (29 yo with YOANNA 09/07/19 with hx of prior CS and LGA infant Size > dates. Sending for US for growth and fluid A pos/ Rub imm FAS wnl Glucola 152--> 3H OGTT normal other than 1 parameter TDaP complete per pt report--> need to confirm HSV neg GBS negative Breast pump RX given MOD: rLTCS scheduled for 09/04/19) GBS: positive: Group B Step Negative (29 yo with YOANNA 09/07/19 with hx of prior CS and LGA Size > dates. Sending for US for growth and fluid A pos/ Rub imm FAS wnl Glucola 152--> 3H OGTT normal other than 1 parameter TDaP complete per pt report--> need to confirm HSV neg GBS negative Breast pump RX given MOD: rLTCS scheduled for 09/04/19 Counseled to take ASA in future ) Rubella Status: positive: Immune - Other Maternal History Other Maternal History: 29 yo with YOANNA 09/07/19 and hx of prior c-seciton presents with SROM. Hx of prior . Presented wiht painful ctx this afternoon but no cervical change. Observed over 4 hours. Discharged to home and had gross LOF per vagina. ROM+ positive. No VB. Endorses FM. Meds/Allgy - Home Medications Home Medications: Ambulatory Orders Medication Instructions Recorded Confirmed Pnv No.122/Iron/Folic Acid 1 each PO DAILY #90 tablet 01/17/19 [ Multi Tablet] Loratadine [Claritin] 10 mg PO DAILY 04/30/19 04/30/19 - Allergies Allergies/Adverse Reactions: Allergies Allergy/AdvReac Type Severity Reaction Status Date / Time No Known Drug Allergies Allergy Verified 04/30/19 19:04 Review of Systems - Other Findings Other Findings: As per HPI, remaining systems are negative. Physical - Abdominal Exam Vital Signs: Temp Pulse Resp BP Pulse Ox 209.5 F H 112 H 20 145/89 H 98 08/26/19 20:05 08/26/19 20:05 08/26/19 20:05 08/26/19 20:05 08/26/19 20:05 - Monitoring Strip Review: positive: Category I - Presentation Presentation: positive: Vertex - Vaginal Exam Membranes: positive: Membranes ruptured Dilation (in cm): 1 Effacement (%): long Station: positive: -3 - Speculum Exam Speculum Exam Performed: positive: No Findings: positive: Gross leak Plan for Labor - Plan For Labor Plan for Labor: 29 yo with YOANNA 09/07/19 with SROM andhx of prior Proceed with rLTCS Consent obtained cefazolin 2 g IV OCTOR Bicitira given recency of meal In patient care Rh pos/Rub imm
[2019-08-26] MEDS ORDERED: CEFAZOLIN SODIUM IN 0.9 % NACL 2 GM/100 ML BAG IV ONE (21:22)
[2019-08-26] MEDS: LACTATED RINGERS 1,000 ML IV SCH (21:30)
[2019-08-26] MEDS ORDERED: LIDOCAINE 1%-EPI 1:100000 30 ML MDV SUBQ ONE (21:52)
[2019-08-26] MEDS ORDERED: LACTATED RINGERS 1,000 ML IV ONE ×2 (21:52→22:58)
[2019-08-26] MEDS ORDERED: miSOPROStol 200 MCG TABLET ONE (23:11)
[2019-08-26] MEDS ORDERED: OXYTOCIN/DEXTROSE 5 % 30 UNIT/500 ML BAG IV ONE (23:32)
--- NOTE | 2019-08-26 23:33 | OPERATIVE REPORT ---
Operative Report - General Admit Date: 08/26/19 Planned Procedure: Repeat low transverse Pre-Op Diagnosis: IUP at 38w2d; history of , ruptured membranes Procedure Performed: repeat low transverse Post Op Diagnosis: Same and delivery of term, large for gestational age, - Procedure Note Primary Surgeon: Manjula Paulino MD Secondary Surgeon: Patricia Beverly CNM Anesthesia Provider: Gisela Johnson CRNA Anesthesia Technique: Spinal Pathology: Placenta for routine discard IV Fluids (mL): 1,500 Estimated Blood Loss (mL): 1,200 Urine Output (mL): 250 Indications: History of prior . Presented with premature rupture of membranes at 38w2d ega. Findings: LGA female weight 10 lb 7.6 oz., Apgars pending. Left aspect of uterus with rudimentary uterine horn. Normal appearing tubes and ovaries. Complications: none - Other Other Information/Narrative: Risks benefits and alternatives of the procedure were discussed. Written informed consent was obtained. Patient was taken to the operating room where spinal anesthesia was placed and found to be adequate. She was prepped and draped in the usual sterile fashion in the dorsal supine position with a leftward tilt. Meza catheter was in place. SCDs were in place and activated. Cefazolin 2 g IV was given as a preoperative antibiotic. Preoperative timeout was performed. A total of 20 cc of 1% lidocaine with epinephrine was injected into the suture line prior to making the incision. A Pfannenstiel incision was made in the skin with a scalpel and carried through the underlying layer of fascia in a combination of sharp and blunt dissection. The fascia was incised in the midline, and the incision was extended laterally with the Chang scissors. The superior aspect of the fascial incision was grasped with the Ryann clamps, elevated, and the underlying rectus muscles were dissected off bluntly and sharply using the Chang scissors. Attention was then turned to the inferior aspect of the incision which in a similar fashion was grasped, tented up with Ryann clamps, and the underlying rectus muscles dissected off bluntly and sharply using Chang scissors. The rectus muscles were then in the midline. The peritoneum was identified, tented up, and entered bluntly. The peritoneal incision was extended superiorly and inferiorly with good visualization of the bladder. The bladder that blade was then inserted. Metzenbaum scissors were used to dissect the vesicouterine peritoneum off the lower uterine segment and a bladder flap was created. The lower uterine segment of the uterus was identified, and incised in a transverse fashion with a scalpel. The uterus was entered bluntly. The uterine incision was extended in a craniocaudal fashion by manual stretch. The bladder blade was removed. A kiwi vacuum was used to assist in delivery of the head. The infant was delivered from from vertex position. Baby was wrapped in a warm sterile towel. Delayed cord clamping was performed. After cessation of pulsations, the cord was clamped x2 and cut. The was handed off to the waiting pediatricians. The placenta was removed with manual expression. The uterus was exteriorized and cleared of all clots clots and debris via manual swipe using Ray-Keira x2. The uterine incision was then repaired in a running locked fashion using 0 Vicryl suture. The incisoin was reinforced with a running imbricating layer again using 0-Vicryl suture. Excellent hemostasis was obtained. The uterus was returned to the abdomen. The gutters were cleared of all clots and debris. The pelvis was irrigated with warm normal saline. The uterine defe ct was well visualized in normal anatomic position it was noted again to be hemostatic. The peritoneum was then reapproximated with 2-0 Vicryl in a running fashion. The rectus muscles were then reapproximated using interrupted [id number] sutures using 2-0 Chromic. Good hemostasis was noted. The fascia was then closed using 0 Vicryl in a running fashion starting from the left lateral edge to the midline. A second suture was used to close the fascia in a running fashion starting from the right lateral edge and meeting in the midline, agian using 0-Vicryl. The subcutaneous tissue was then irrigated and closed using 2-0 chromic in a running subcutaneous suture. Skin was closed in a running subcuticular suture using 4-0 Monocryl. Steri-Strips were applied to reinforce the incsion and dressing was applied. Procedure was well-tolerated and without complication. Sponge lap and needle counts were correct x2. Patient was taken to recovery room in stable condition. Patricia Beverly CNM, assisted with retracting, delivery of the , and suturing.
[2019-08-26] MEDS ORDERED: LACTATED RINGERS 1,000 ML IV SCH (23:45)
[2019-08-26] MEDS ORDERED: ONDANSETRON ODT 4 MG TABLET TL PRN (23:46)
[2019-08-26] MEDS ORDERED: HYDROCORTISONE 1% CREAM 28 GM TUBE PR PRN (23:46)
[2019-08-26] MEDS ORDERED: ONDANSETRON 4 MG/2 ML VIAL IVP PRN (23:46)
[2019-08-26] MEDS ORDERED: CARBOPROST TROMETHAMINE 250 MCG/ML AMP IM ONE (23:46)
[2019-08-26] MEDS ORDERED: WITCH HAZEL/GLYCERIN 1 PAD TOP PRN (23:46)
[2019-08-26] MEDS ORDERED: SODIUM CHLORIDE FLUSH 0.9% 10 ML SYRINGE IVP PRN (23:46)
[2019-08-26] MEDS ORDERED: diphenhydrAMINE 25 MG CAPSULE PO PRN (23:46)
[2019-08-26] MEDS ORDERED: diphenhydrAMINE INJ 50 MG/ML VIAL IVP PRN (23:46)
[2019-08-26] MEDS: OXYTOCIN/DEXTROSE 5 % 30 UNIT/500 ML BAG IV PRN (23:50)
[2019-08-27] MEDS: KETOROLAC 30 MG/ML VIAL IVP SCH ×3 (04:35→16:26)
[2019-08-27] MEDS: OXYTOCIN/DEXTROSE 5 % 30 UNIT/500 ML BAG IV PRN (04:36)
[2019-08-27] MEDS: ACETAMINOPHEN 500 MG TABLET PO SCH ×3 (04:50→16:25)
[2019-08-27 06:34] LABS: BASOPHILS % (AUTO) 0.2 %; HGB - HEMOGLOBIN 9.8 g/dL (12.0-16.0); LYMPHOCYTES # (AUTO) 1.7 10^3/uL (1.5-3.5); LYMPHOCYTES % (AUTO) 14.3 %; MEAN CORPUSCULAR HEMOGLOBIN 29.9 pg (27.0-31.0); MEAN CORPUSCULAR HGB CONC 33.7 g/dL (32.0-36.0); MEAN CORPUSCULAR VOLUME 88.7 fL (81.0-99.0); MEAN PLATELET VOLUME 9.4 fL (7.9-10.8); MONOCYTES # (AUTO) 0.7 10^3/uL (0.0-1.0); MONOCYTES % (AUTO) 6.1 %; NEUTROPHILS # (AUTO) 9.1 10^3/uL (1.5-6.6); NEUTROPHILS % (AUTO) 78.8 %; PLT - PLATELET COUNT 196 10^3/uL (130-450); RED BLOOD COUNT 3.28 10^6/uL (4.20-5.40); RED CELL DISTRIBUTION WIDTH 14.4 % (12.0-15.0); WHITE BLOOD COUNT 11.6 x10^3/uL (4.8-10.8)
[2019-08-27] MEDS: DOCUSATE SODIUM 100 MG CAPSULE PO SCH ×2 (08:20→20:54)
[2019-08-27] MEDS: SIMETHICONE CHEW 80 MG TABLET PO PRN ×3 (08:21→20:54)
[2019-08-27] MEDS: oxyCODONE 5 MG TABLET PO PRN ×4 (08:23→20:54)
--- NOTE | 2019-08-27 09:34 | PROVIDER PROGRESS NOTE ---
Subjective - General Admit Date: 08/26/19 Procedure Date: 08/26/19 Post Op Days: 1 - Other Other Information/Narrative: The patient is doing actually quite well this morning. She has not truly ambulated yet. Her Meza is still in place and her IV is still in place. She is without complaint however. Objective - Patient Data Vital Signs: Vital Signs x48h Temp Pulse Resp BP BP Pulse Ox 08/27/19 08:48 36.9 C 117 H 16 108/66 108/66 100 08/27/19 04:47 36.5 C 111 H 18 117/70 97 Weight: Weight 08/25/19 08/26/19 08/27/19 23:59 23:59 23:59 Weight (kg) 117.48 kg Intake & Output: Intake and Output Totals x24h 08/25/19 08/26/19 08/27/19 23:59 23:59 23:59 Intake Total 1100 500 Output Total 30 390 Balance 1070 110 - Lab Results Lab Results: 08/27/19 06:11 Other Lab Results: Lab Results x24hrs 08/27/19 08/26/19 08/26/19 Range/Units 06:11 20:40 20:40 WBC 11.6 H 8.5 (4.8-10.8) x10^3/uL RBC 3.28 L 3.85 L (4.20-5.40) 10^6/uL Hgb 9.8 L 11.4 L (12.0-16.0) g/dL Hct 29.1 L 33.9 L (37.0-47.0) % MCV 88.7 88.1 (81.0-99.0) fL MCH 29.9 29.6 (27.0-31.0) pg MCHC 33.7 33.6 (32.0-36.0) g/dL RDW 14.4 14.6 (12.0-15.0) % Plt Count 196 252 (130-450) 10^3/uL MPV 9.4 9.4 (7.9-10.8) fL Neut # (Auto) 9.1 H 5.9 (1.5-6.6) 10^3/uL Lymph # (Auto) 1.7 2.0 (1.5-3.5) 10^3/uL [place] # (Auto) 0.7 0.6 (0.0-1.0) 10^3/uL Eos # (Auto) 0.0 0.0 (0.0-0.7) 10^3/uL Baso # (Auto) 0.0 0.0 (0.0-0.1) 10^3/uL Absolute Nucleated RBC 0.00 0.00 x10^3/uL Nucleated RBC % 0.0 0.0 /100WBC Membranes Rupture (NEGATIVE) Blood Type A POSITIVE Antibody Screen NEGATIVE 08/26/19 Range/Units 19:30 WBC (4.8-10.8) x10^3/uL RBC (4.20-5.40) 10^6/uL Hgb (12.0-16.0) g/dL Hct (37.0-47.0) % MCV (81.0-99.0) fL MCH (27.0-31.0) pg MCHC (32.0-36.0) g/dL RDW (12.0-15.0) % Plt Count (130-450) 10^3/uL MPV (7.9-10.8) fL Neut # (Auto) (1.5-6.6) 10^3/uL Lymph # (Auto) (1.5-3.5) 10^3/uL [place] # (Auto) (0.0-1.0) 10^3/uL Eos # (Auto) (0.0-0.7) 10^3/uL Baso # (Auto) (0.0-0.1) 10^3/uL Absolute Nucleated RBC x10^3/uL Nucleated RBC % /100WBC Membranes Rupture POSITIVE A (NEGATIVE) Blood Type Antibody Screen - Current Medications Current Medications: Current Medications Generic Name Dose Route Start Last Admin Trade Name Freq PRN Reason Stop Dose Admin Acetaminophen 1,000 mg 08/26/19 23:45 08/27/19 08:21 Tylenol PO 1,000 mg Q8H NUVIA Administration Docusate Sodium 100 mg 08/27/19 09:00 08/27/19 08:20 Colace 100mg Capsule PO 100 mg BID NUVIA Administration Lactated Ringer's 1,000 mls @ 125 mls/hr 08/26/19 20:26 08/26/19 22:30 Lr IV Infused .Q8H NUVIA Infusion Lactated Ringer's 1,000 mls @ 100 mls/hr 08/26/19 23:45 08/26/19 23:50 Lr IV 100 mls/hr .Q10H NUVIA Administration OXYTOCIN/DEXTROSE 5 % 30 unit in 500 mls @ 999 mls/hr 08/26/19 23:46 08/27/19 04:36 Pitocin/Dextrose 5% IV 50 mls/hr PRN PRN Administration POST- HEMORR PREVENTION Protocol 999 MILLIUNIT/MIN Ketorolac Tromethamine 30 mg 08/26/19 23:45 08/27/19 04:35 Toradol Inj (30mg) IVP 08/27/19 17:46 30 mg Q6H NUVIA Administration Oxycodone HCl 5 mg 08/26/19 23:46 08/27/19 08:23 Roxicodone PO 5 mg Q4HR PRN Administration PAIN Simethicone 80 mg 08/26/19 23:46 08/27/19 08:21 Mylicon PO 80 mg TID PRN Administration Gas - Physical Exam Comments/Other: Lungs: Lungs are clear to auscultation bilaterally without wheezes, rales or rhonchi Heart: The heart has a regular rate and rhythm without murmur, S3-S4 gallop rhythms Abdomen: The abdomen is soft, pliable and nontender. The uterus is firm and nontender 1 fingerbreadths below the umbilicus.Lochia is light. Incision: The dressing is in place. It is clean and dry and intact. Impression/Plan - Problem List Problem List: Impression: Postop day/ day 0: Stable Plan:We will encourage ambulation later today. As long as she starts ambulating well and tolerating diet well we will IV and ICDs.She will be able to take a shower at that time.
[2019-08-27] MEDS: LACTATED RINGERS 1,000 ML IV SCH (10:28)
[2019-08-27] MEDS ORDERED: oxyCODONE 5 MG TABLET PO PRN (15:05)
[2019-08-27] MEDS: SODIUM CHLORIDE FLUSH 0.9% 10 ML SYRINGE IVP SCH (16:26)
[2019-08-27] MEDS ORDERED: cefTRIAXone 250 MG VIAL IM ONE (19:54)
[2019-08-27] MEDS ORDERED: LIDOCAINE 1% 2 ML VIAL MC ONE (19:54)
--- NOTE | 2019-08-27 19:54 | PROVIDER PROGRESS NOTE ---
Subjective - General Admit Date: 08/26/19 Procedure Date: 08/26/19 Post Op Days: 1 Procedure Performed: rLTCS - Review of Systems Wound/Incisions: positive: Healing well (Pain well managed. Patient has been up and ambulating, tolerating p.o., voiding. Minimal lochia. Has been having some abdominal gas. Improved with simethicone.) Objective - Patient Data Vital Signs: Vital Signs x48h Temp Pulse Resp BP Pulse Ox 08/27/19 18:00 98.1 F 112 H 16 108/63 98 08/27/19 14:35 98.2 F 113 H 16 116/62 98 Weight: Weight 08/25/19 08/26/19 08/27/19 23:59 23:59 23:59 Weight (kg) 117.48 kg Intake & Output: Intake and Output Totals x24h 08/25/19 08/26/19 08/27/19 23:59 23:59 23:59 Intake Total 1100 1000 Output Total 30 1390 Balance 1070 -390 - Lab Results Lab Results: 08/27/19 06:11 Other Lab Results: Lab Results x24hrs 08/27/19 08/26/19 08/26/19 Range/Units 06:11 20:40 20:40 WBC 11.6 H 8.5 (4.8-10.8) x10^3/uL RBC 3.28 L 3.85 L (4.20-5.40) 10^6/uL Hgb 9.8 L 11.4 L (12.0-16.0) g/dL Hct 29.1 L 33.9 L (37.0-47.0) % MCV 88.7 88.1 (81.0-99.0) fL MCH 29.9 29.6 (27.0-31.0) pg MCHC 33.7 33.6 (32.0-36.0) g/dL RDW 14.4 14.6 (12.0-15.0) % Plt Count 196 252 (130-450) 10^3/uL MPV 9.4 9.4 (7.9-10.8) fL Neut # (Auto) 9.1 H 5.9 (1.5-6.6) 10^3/uL Lymph # (Auto) 1.7 2.0 (1.5-3.5) 10^3/uL [place] # (Auto) 0.7 0.6 (0.0-1.0) 10^3/uL Eos # (Auto) 0.0 0.0 (0.0-0.7) 10^3/uL Baso # (Auto) 0.0 0.0 (0.0-0.1) 10^3/uL Absolute Nucleated RBC 0.00 0.00 x10^3/uL Nucleated RBC % 0.0 0.0 /100WBC Membranes Rupture (NEGATIVE) Blood Type A POSITIVE Antibody Screen NEGATIVE 08/26/19 Range/Units 19:30 WBC (4.8-10.8) x10^3/uL RBC (4.20-5.40) 10^6/uL Hgb (12.0-16.0) g/dL Hct (37.0-47.0) % MCV (81.0-99.0) fL MCH (27.0-31.0) pg MCHC (32.0-36.0) g/dL RDW (12.0-15.0) % Plt Count (130-450) 10^3/uL MPV (7.9-10.8) fL Neut # (Auto) (1.5-6.6) 10^3/uL Lymph # (Auto) (1.5-3.5) 10^3/uL [place] # (Auto) (0.0-1.0) 10^3/uL Eos # (Auto) (0.0-0.7) 10^3/uL Baso # (Auto) (0.0-0.1) 10^3/uL Absolute Nucleated RBC x10^3/uL Nucleated RBC % /100WBC Membranes Rupture POSITIVE A (NEGATIVE) Blood Type Antibody Screen - Current Medications Current Medications: Current Medications Generic Name Dose Route Start Last Admin Trade Name Freq PRN Reason Stop Dose Admin Acetaminophen 1,000 mg 08/26/19 23:45 08/27/19 16:25 Tylenol PO 1,000 mg Q8H NUVIA Administration Docusate Sodium 100 mg 08/27/19 09:00 08/27/19 08:20 Colace 100mg Capsule PO 100 mg BID NUVIA Administration Oxycodone HCl 10 mg 08/27/19 14:58 08/27/19 15:01 Roxicodone PO 5 mg Q4HR PRN Administration PAIN Simethicone 80 mg 08/26/19 23:46 08/27/19 14:31 Mylicon PO 80 mg TID PRN Administration Gas - Physical Exam Wound/Incisions: positive: Dressing dry and intact General Appearance: positive: No acute distress Respiratory: positive: No respiratory distress Abdomen: positive: Non-tender, Other (Soft and nontender nondistended.) Skin: positive: Color nml Extremities: positive: Non-tender, Pedal edema Neurologic/Psychiatric: positive: Oriented x3 Impression/Plan - Problem List Problem List: Continue with routine postop care. Encourage ambulation Voiding Tolerating p.o. Transition to p.o. pain meds Anticipate DC on post op day 2-3 Had a late delivery and may benefit from discharge on postop day 3
[2019-08-27] MEDS ORDERED: WATER FOR INJECTION,STERILE 10 ML ONE (21:00)
[2019-08-27] MEDS: IBUPROFEN 600 MG TABLET PO SCH (23:19)
[2019-08-28] MEDS: ACETAMINOPHEN 500 MG TABLET PO SCH ×3 (00:24→17:48)
[2019-08-28] MEDS: oxyCODONE 5 MG TABLET PO PRN ×5 (01:12→17:48)
[2019-08-28] MEDS: KETOROLAC 30 MG/ML VIAL IVP SCH (04:35)
[2019-08-28] MEDS: IBUPROFEN 600 MG TABLET PO SCH ×3 (05:03→17:48)
[2019-08-28] MEDS: SIMETHICONE CHEW 80 MG TABLET PO PRN ×3 (05:04→17:48)
[2019-08-28] MEDS: DOCUSATE SODIUM 100 MG CAPSULE PO SCH ×2 (08:57→20:03)
--- NOTE | 2019-08-28 08:59 | PROVIDER PROGRESS NOTE ---
Subjective - General Admit Date: 08/26/19 Procedure Date: 08/26/19 Post Op Days: 2 Procedure Performed: rLTCS - Review of Systems Wound/Incisions: positive: Dressing dry and intact - Other Other Information/Narrative: Pain 2/2 gas improved. Sore in lower abdomen but well managed with medication. Tolerating po, ambulating, and voiding. Late night delivery on POD#0; still needs support with , etc. Objective - Patient Data Reviewed Vital Signs: Yes Weight: Weight 08/26/19 08/27/19 08/28/19 23:59 23:59 23:59 Weight (kg) 117.48 kg Intake & Output: Intake and Output Totals x24h 08/26/19 08/27/19 08/28/19 23:59 23:59 23:59 Intake Total 1100 1000 Output Total 30 1390 Balance 1070 -390 - Lab Results Lab Results: 08/27/19 06:11 - Current Medications Current Medications: Current Medications Generic Name Dose Route Start Last Admin Trade Name Freq PRN Reason Stop Dose Admin Acetaminophen 1,000 mg 08/26/19 23:45 08/28/19 00:24 Tylenol PO 1,000 mg Q8H NUVIA Administration Docusate Sodium 100 mg 08/27/19 09:00 08/27/19 20:54 Colace 100mg Capsule PO 100 mg BID NUVIA Administration Ibuprofen 600 mg 08/28/19 00:00 08/28/19 05:03 Motrin PO 600 mg Q6H NUVIA Administration Oxycodone HCl 10 mg 08/27/19 14:58 08/28/19 05:03 Roxicodone PO 10 mg Q4HR PRN Administration PAIN Simethicone 80 mg 08/26/19 23:46 08/28/19 05:04 Mylicon PO 80 mg TID PRN Administration Gas - Physical Exam Wound/Incisions: positive: Dressing dry and intact General Appearance: positive: No acute distress Respiratory: positive: No respiratory distress Cardiovascular: positive: Other (reg rate) Abdomen: positive: Other (appropriately tender at fundus, otherwise NT/ND) Skin: positive: Color nml Extremities: positive: Non-tender, Pedal edema Neurologic/Psychiatric: positive: Oriented x3 Impression/Plan - Problem List Problem List: POD#2 s/p rLTCS Routine post op care Encourage ambulation Anticipate DC home tomorrow
[2019-08-29] MEDS: IBUPROFEN 600 MG TABLET PO SCH ×3 (00:29→12:29)
[2019-08-29] MEDS: ACETAMINOPHEN 500 MG TABLET PO SCH ×2 (01:46→09:54)
[2019-08-29] MEDS: oxyCODONE 5 MG TABLET PO PRN ×2 (03:22→12:29)
[2019-08-29 08:12] VITALS: BP 123/67
[2019-08-29] MEDS: DOCUSATE SODIUM 100 MG CAPSULE PO SCH (09:54)
[2019-08-29] MEDS ORDERED: MORPHINE PF 10 MG/10 ML AMP EPI ONE (14:59)
[2019-08-29] MEDS ORDERED: ePHEDrine 50 MG/ML VIAL IVP ONE (14:59)
[2019-08-29] MEDS ORDERED: KETOROLAC 30 MG/ML VIAL IVP ONE (14:59)
--- NOTE | 2019-09-01 22:42 | DISCHARGE SUMMARY ---
"Discharge Summary Admit Date: 08/26/19 Discharge Date: 08/29/19 Discharging Provider: Manjula Paulino MD Code Status: Attempt Resuscitation Condition at Discharge: Good Discharge Disposition: 01 Home, Self Care - DIAGNOSES Admission Diagnoses: IUP at 38w2d; history of , ruptured membranes Discharge Diagnoses with Status of Each Condition: Delivery of term gestation via repeat Delivery of large for gestational age - HPI History of Present Illness: Carolyn is a 29-year-old G2, P1 with a YOANNA of 09/07/2019 and history of prior who presented on 08/26/2019 with spontaneous rupture of membranes. She had initially presented to triage on 08/26/2019 afternoon with painful contractions. She was observed over 4 hours but did not show any cervical change. She was discharged home and reported gross loss of fluid per vagina. Testing in triage indicated ROM plus was positive. She denied vaginal bleeding and endorsed movement. Contractions were rare. Given history of prior and desired for repeat procedure, we proceeded to the operating room for immediate delivery. Written informed consent was obtained. - CONSULTS | PROCEDURES Consultations: none Procedures: Repeat low transverse . - HOSPITAL COURSE Hospital Course: Carolyn is a 29-year-old G2, P1 admitted at 38 weeks 2 days with ruptured membranes. She is a history of prior and desires repeat. Upon admission, written informed consent was obtained. She was given cefazolin 2 g IV and Bicitra in anticipation of her . She underwent the aforementioned procedure delivering a viable female weighing 4752 g with Apgars of 8 and 9. A Kiwi vacuum extractor was used during the delivery. The procedure was well-tolerated without complication. Postoperative course was uncomplicated. Given the late night delivery, she was discharged on postoperative day #3. She was up and ambulating, tolerating p.o., voiding, and pain was managed with oral medications. Routine discharge instructions were given. Rh+/rubella immune. - ALLERGIES Allergies/Adverse Reactions: Allergies Allergy/AdvReac Type Severity Reaction Status Date / Time No Known Drug Allergies Allergy Verified 04/30/19 19:04 - MEDICATIONS Home Medications: Ambulatory Orders Medication Instructions Recorded Confirmed Pnv No.122/Iron/Folic Acid 1 each PO DAILY #90 tablet 01/17/19 [ Multi Tablet] Loratadine [Claritin] 10 mg PO DAILY 04/30/19 04/30/19 - PHYSICAL EXAM AT DISCHARGE General Appearance: positive: No acute distress Neck: positive: Nml inspection Respiratory: positive: No respiratory distress, Breath sounds nml Cardiovascular: positive: Regular rate & rhythm Abdomen: positive: Other (Soft and nondistended. Appropriately tender. Dressings were removed and incision line was clean dry and intact. Steri-Strips are in place.) Extremities: positive: Non-tender, Pedal edema Neurologic/Psychiatric: positive: Oriented x3 - LABS Result Diagrams: 08/27/19 06:11 - FOLLOW UP Follow Up: Follow-up in 1 week for incision check in 6 weeks for routine care. - TIME SPENT Time Spent in Discharge (Minutes): 30"
== END 2019-08-29 15:00 | disposition home or self-care (01) | DRG 788 ==
LOC: WFO 19:40 → FBP 19:42 → WFO 20:22 → FBP 20:23
PROVIDERS: ADMIT Obstetrics & Gynecology; ATTEND Obstetrics & Gynecology
PROC: 10D00Z1 Extraction of Products of Conception, Low, Open Approach (ICD-10-PCS; principal; 2019-08-26 20:50)
DX: O34.211 Maternal care for low transverse scar from previous cesarean delivery (principal); O75.82 Onset (spontaneous) of labor after 37 completed weeks of gestation but before 39 completed weeks gestation, with delivery by (planned) cesarean section; O36.63X0 Maternal care for excessive fetal growth, third trimester, not applicable or unspecified; O42.92 Full-term premature rupture of membranes, unspecified as to length of time between rupture and onset of labor; R14.1 Gas pain; Z3A.38 38 weeks gestation of pregnancy; Z37.0 Single live birth
CPT/HCPCS: 36415; 84112; 85025; 86850; 86900; 86901; 99213; A9270; J0690; J2274; J7120

== ENCOUNTER 2020-07-10 17:18 | Emergency (ER) | payer OTHER, MEDICAID ==
[2020-07-10 18:44] LABS: BILIRUBIN,URINE NEGATIVE (NEGATIVE); GLUCOSE, URINE (UA) NEGATIVE (NEGATIVE); KETONES,URINE (UA) NEGATIVE (NEGATIVE); LEUKOCYTE ESTERASE, URINE NEGATIVE (NEGATIVE); NITRITE,URINE NEGATIVE (NEGATIVE); OCCULT BLOOD,URINE NEGATIVE (NEGATIVE); PH,URINE 5.5 PH (5.0-7.5); PROTEIN,URINE NEGATIVE (NEGATIVE); UROBILINOGEN,URINE 0.2 (NORMAL) E.U./dL (NORMAL)
[2020-07-10 18:46] LABS: CLARITY,URINE CLEAR (CLEAR); HCG UR QUAL NEGATIVE
[2020-07-10] MEDS ORDERED: KETOROLAC 60 MG/2 ML VIAL IM STA (19:44)
[2020-07-10] MEDS ORDERED: CHERRY SYRUP 10 ML UDC PO ONE (19:44)
[2020-07-10] MEDS ORDERED: DEXAMETHASONE 10 MG/ML VIAL PO STA (19:44)
--- NOTE | 2020-07-10 19:52 | ED Physician Documentation ---
PD HPI BACK PAIN - Stated complaint Stated Complaint: BACK PX - Chief complaint Chief Complaint: Back Pain - History obtained from History obtained from: Patient - History of Present Illness Timing - onset: Today Timing - duration: Hours (3) Timing - details: Abrupt onset Pain level max: 7 Pain level now: 7 Location: Mid, Lower, Left Quality: Pain, Spasm Associated symptoms: No: Fever, Weakness, Numbness, Incontinent of urine, Unable to urinate, Hematuria, Incontinent of stool Improves with: Rest Worsened by: Movement Recently seen: Not recently seen - Additional information Additional information: Patient states that 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 She pulled on the patient and felt pain in her back. It traveled up. Did not go down her legs. No loss of bowel or bladder control. No numbness or tingling. Did not take anything for pain. Nothing makes it better or worse. 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: Ovarian cysts, Other : Other HEENT: None Psych: Anxiety Musculoskeletal: None Derm: None - Past Surgical History Past Surgical History: Yes General: Appendectomy /IT SECURITY ADMINISTRATOR: section - Present Medications Home Medications: Ambulatory Orders Medication Instructions Recorded Confirmed No122/Iron/Folic Acid 1 each PO DAILY #90 tablet 01/17/19 [ Multi Tablet] Loratadine [Claritin] 10 mg PO DAILY 04/30/19 04/30/19 Cyclobenzaprine [Flexeril] 10 mg PO TID PRN #20 tablet 07/10/20 Meloxicam [Mobic] 15 mg PO DAILY PRN #20 tablet 07/10/20 - Allergies Allergies/Adverse Reactions: Allergies Allergy/AdvReac Type Severity Reaction Status Date / Time No Known Drug Allergies Allergy Verified 07/10/20 17:29 - Social History Does the pt smoke?: No Smoking Status: Never smoker Does the pt drink ETOH?: No Does the pt have substance abuse?: No - Immunizations Immunizations are current?: No Immunizations: TDAP >10years/unknown - POLST Patient has POLST: No PD ED PE NORMAL - Vitals Vital signs reviewed: Yes - General General: Alert and oriented X 3, No acute distress, Well developed/nourished - HEENT HEENT: PERRL, Moist mucous membranes - Neck Neck: Supple, no meningeal sign - Cardiac Cardiac: RRR - Respiratory Respiratory: No respiratory distress, Clear bilaterally - Abdomen Abdomen: Soft, Non tender, Non distended - Back Back: No spinal TTP (No midline tenderness to palpation. No step-off or deformity. Paraspinal spasm left greater than right low lumbar.) - Derm Derm: Warm and dry - Extremities Extremities: No deformity, Other (Normal bilateral lower extremity patellar and ankle jerk reflexes. Normal great toe extension bilaterally. no saddle anesthesia) - Neuro Neuro: Alert and oriented X 3, No motor deficit, No sensory deficit - Psych Psych: Normal mood, Normal affect Results - Vitals Vitals: Vital Signs - 24 hr 07/10/20 07/10/20 07/10/20 17:26 18:40 19:55 Temperature 36.0 C L 37.0 C Heart Rate 102 H 92 82 Respiratory 20 16 18 Rate Blood Pressure 131/90 H 126/77 145/99 H O2 Saturation 100 100 100 Oxygen O2 Source Room air - Labs Labs: Laboratory Tests 07/10/20 18:35 Urine Color YELLOW Urine Clarity CLEAR Urine pH 5.5 Ur Specific [place] >=1.030 H Urine Protein NEGATIVE Urine Glucose (UA) NEGATIVE Urine Ketones NEGATIVE Urine Occult Blood NEGATIVE Urine Nitrite NEGATIVE Urine Bilirubin NEGATIVE Urine Urobilinogen 0.2 (NORMAL) Ur Leukocyte Esterase NEGATIVE Ur Microscopic Review NOT INDICATED Urine Culture Comments NOT INDICATED Urine HCG, Qual NEGATIVE PD MEDICAL DECISION MAKING - ED course Complexity details: considered differential (No cauda equina, no spinal epidural abscess, no fracture, no aortic dissection or evidence of aneursym rupture), d/w patient ED course: 30-year-old female with a what appears to be back spasm from moving a patient. Given Toradol. Will place on anti-inflammatories and muscle relaxants for home. No evidence of cauda equina, epidural abscess. Normal neurological exam. Patient counseled regarding signs and symptoms for which I believe and urgent re-evaluation would be necessary. Patient with good understanding of and agreement to plan and is comfortable going home at this time This document was made in part using voice recognition software. While efforts are made to proofread this document, sound alike and grammatical errors may occur. Departure - Departure Disposition: 01 Home, Self Care Clinical Impression: Back muscle spasm Condition: Good Instructions: ED Spasm Back No Trauma Follow-Up: your,doctor in 1 week [Other] Prescriptions: Cyclobenzaprine [Flexeril] 10 mg PO TID PRN #20 tablet PRN Reason: Spasms Meloxicam [Mobic] 15 mg PO DAILY PRN #20 tablet PRN Reason: pain Comments: Return if you worsen. Follow-up with your doctor for further care. Continue to gently stretch your back. Do not drive or operate heavy machinery while taking muscle relaxants. Discharge Date/Time: 07/10/20 20:03
[2020-07-10 19:56] VITALS: BP 145/99
== END 2020-07-10 20:03 | disposition home or self-care (01) ==
LOC: ED 17:18
DX: M62.830 Muscle spasm of back (principal); M54.5 Low back pain; X50.0XXA Overexertion from strenuous movement or load, initial encounter; Y93.F2 Activity, caregiving, lifting; Y92.122 Bedroom in nursing home as the place of occurrence of the external cause; Y99.0 Civilian activity done for income or pay
CPT/HCPCS: 1040M; 81003; 81025; 96372; 99283; 99284; A9270; 81001; 87086

== ENCOUNTER 2020-10-13 18:00 | Emergency (ER) | payer OTHER, MEDICAID ==
[2020-10-13 18:47] LABS: HCG UR QUAL NEGATIVE
[2020-10-13 19:00] VITALS: BP 125/80
--- NOTE | 2020-10-14 11:45 | ED Physician Documentation ---
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 The theo lift carried the majority of the weight but pt thinks she just twisted or moved awkwardly and felt a pull or a pop in the left abdominal wall. No bulging. Area is tender but not severely painful. Mild nausea but no vomiting. No fever, constipation, diarrhea, or urinary sx. Review of Systems Constitutional: reports: Reviewed and negative Cardiac: reports: Reviewed and negative Respiratory: reports: Reviewed and negative GI: reports: Abdominal Pain, Nausea. 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: Ovarian cysts, Other : Renal insuffiency, Other HEENT: None Psych: Depression, Anxiety Musculoskeletal: None Derm: None - Past Surgical History Past Surgical History: Yes General: Appendectomy /METEOROLOGICAL ENGINEER: section - Present Medications Home Medications: Ambulatory Orders Medication Instructions Recorded Confirmed No122/Iron/Folic Acid 1 each PO DAILY #90 tablet 01/17/19 [ Multi Tablet] Loratadine [Claritin] 10 mg PO DAILY 04/30/19 04/30/19 Cyclobenzaprine [Flexeril] 10 mg PO TID PRN #20 tablet 07/10/20 Meloxicam [Mobic] 15 mg PO DAILY PRN #20 tablet 07/10/20 Ibuprofen [Motrin] 800 mg PO Q8H PRN #30 tablet 10/13/20 - Allergies Allergies/Adverse Reactions: Allergies Allergy/AdvReac Type Severity Reaction Status Date / Time No Known Drug Allergies Allergy Verified 10/13/20 18:05 - Social History Does the pt smoke?: Yes Smoking Status: Former smoker Does the pt drink ETOH?: Yes Does the pt have substance abuse?: Yes Substance Use and Type: Marijuana - Immunizations Immunizations are current?: Yes Immunizations: TDAP >10years/unknown - POLST Patient has POLST: No PD ED PE NORMAL - Vitals Vital signs reviewed: Yes - General General: Alert and oriented X 3, No acute distress, Well developed/nourished - HEENT HEENT: Atraumatic - Neck Neck: Supple, no meningeal sign, No adenopathy - Cardiac Cardiac: RRR, No murmur, No gallop, No rub, Strong equal pulses - Respiratory Respiratory: No respiratory distress, Clear bilaterally - Abdomen Abdomen: Normal bowel sounds, Soft, Non distended, Other (mild left abdominal wall and flank ttp w/o guarding. no bulging or focal tenderness) - Back Back: No CVA TTP - Derm Derm: Normal color, Warm and dry, No rash - Extremities Extremities: No deformity, No edema - Neuro Neuro: Alert and oriented X 3 Eye Opening: Spontaneous Motor: Obeys Commands Verbal: Oriented GCS Score: 15 - Psych Psych: Normal mood, Normal affect Results - Vitals Vitals: Vital Signs - 24 hr 10/13/20 10/13/20 10/13/20 18:05 18:20 18:59 Temperature 36.5 C 37.1 C 36.8 C Heart Rate 100 97 87 Respiratory 16 18 18 Rate Blood Pressure 142/94 H 130/75 125/80 O2 Saturation 98 99 100 Oxygen O2 Source Room air - Labs Labs: Laboratory Tests 10/13/20 18:15 Ur Specific [place] 1.010 Urine HCG, Qual NEGATIVE PD MEDICAL DECISION MAKING - ED course Complexity details: considered differential, d/w patient ED course: Pt presented with abdominal wall tenderness after a work-related event. On exam she appears comfortable and her abdominal exam is reassuring. I did not palpate any bulging or tenderness concerning for a hernia. She has mild pain and good core mobility. I suspect this is abd wall strain. Advised supportive measures including heat or cool compress, prn ibu/tylenol, and avoid lifting and twisting for several days. I reviewed return precautions if pain worsened, she developed fever, vomiting, or bulging in the abd. A note was provided for work. Departure - Departure Disposition: 01 Home, Self Care Clinical Impression: Strain of abdominal wall Qualifiers: Encounter type: initial encounter Qualified Code(s): S39.011A - Strain of muscle, fascia and tendon of abdomen, initial encounter Condition: Good Instructions: ED Strain Abdominal Muscle Prescriptions: Ibuprofen [Motrin] 800 mg PO Q8H PRN #30 tablet PRN Reason: PAIN &/OR FEVER Comments: You presented with left abdominal wall pain after a work related injury. I do not see any signs of hernia on exam, and you likely sustained a abdominal muscle strain or tear. The treatment for this is supportive including tylenol or ibuprofen, heating pad or cool compress, and avoid lifting or twisting for a few days. If you have a sudden increase in pain or you notice bulging or swelling in the abdomen, please follow up in the ER. Forms: Activity restrictions Discharge Date/Time: 10/13/20 19:00
== END 2020-10-13 19:00 | disposition home or self-care (01) ==
LOC: ED 18:00
DX: S39.011A Strain of muscle, fascia and tendon of abdomen, initial encounter (principal); X50.0XXA Overexertion from strenuous movement or load, initial encounter; Y93.F2 Activity, caregiving, lifting; Y92.129 Unspecified place in nursing home as the place of occurrence of the external cause; Y99.0 Civilian activity done for income or pay; Z87.891 Personal history of nicotine dependence
CPT/HCPCS: 1040M; 81025; 99283; 99284

== ENCOUNTER 2021-03-23 12:13 | Emergency (ER) | payer MEDICAID ==
[2021-03-23 12:55] LABS: BASOPHILS % (AUTO) 0.3 %; EOSINOPHILS % (AUTO) 0.5 %; HGB - HEMOGLOBIN 15.2 g/dL (12.0-16.0); LYMPHOCYTES # (AUTO) 2.2 10^3/uL (1.5-3.5); LYMPHOCYTES % (AUTO) 35.5 %; MEAN CORPUSCULAR HEMOGLOBIN 30.9 pg (27.0-31.0); MEAN CORPUSCULAR HGB CONC 33.8 g/dL (32.0-36.0); MEAN CORPUSCULAR VOLUME 91.5 fL (81.0-99.0); MEAN PLATELET VOLUME 8.8 fL (7.9-10.8); MONOCYTES # (AUTO) 0.4 10^3/uL (0.0-1.0); MONOCYTES % (AUTO) 5.8 %; NEUTROPHILS # (AUTO) 3.6 10^3/uL (1.5-6.6); NEUTROPHILS % (AUTO) 57.7 %; PLT - PLATELET COUNT 249 10^3/uL (130-450); RED BLOOD COUNT 4.92 10^6/uL (4.20-5.40); RED CELL DISTRIBUTION WIDTH 12.4 % (12.0-15.0); WHITE BLOOD COUNT 6.2 x10^3/uL (4.8-10.8)
[2021-03-23 13:08] LABS: ALBUMIN 4.7 g/dL (3.2-5.5); ALBUMIN/GLOBULIN RATIO 1.4 (1.0-2.2); BILIRUBIN,TOTAL 0.5 mg/dL (0.2-1.0); CALCIUM 9.9 mg/dL (8.5-10.3); CREATININE 0.7 mg/dL (0.4-1.0); POTASSIUM 3.7 mmol/L (3.5-5.0)
--- NOTE | 2021-03-23 14:47 | ED Physician Documentation ---
PD HPI ABD PAIN - Stated complaint Stated Complaint: ABD PX - Chief complaint Chief Complaint: Abd Pain - History obtained from History obtained from: Patient - History of Present Illness Timing - onset: Today (awoke this morning with pain RUQ that has persisted.) Timing - duration: Hours Timing - details: Abrupt onset, Still present Quality: Cramping, Aching, Pain Location: RUQ Radiation: No: Chest, Right flank Associated symptoms: Nausea. No: Fever, Vomiting, Diarrhea, Dysuria, Chest pain Review of Systems Constitutional: denies: Fever, Chills, Myalgias Nose: denies: Rhinorrhea / runny nose, Congestion Throat: denies: Sore throat Respiratory: denies: Cough GI: reports: Abdominal Pain, Nausea. 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: Ovarian cysts, Other : Renal insuffiency, Other HEENT: None Psych: Depression, Anxiety Musculoskeletal: None Derm: None - Past Surgical History Past Surgical History: Yes General: Appendectomy /MANAGER: section - Present Medications Home Medications: Ambulatory Orders Medication Instructions Recorded Confirmed Famotidine [Pepcid] 20 mg PO BID #20 tablet 03/23/21 HYDROcod/ACETAM 5/325 [[place] 5/325] 1 ea PO Q6H PRN #15 tablet 03/23/21 Ondansetron Odt [Zofran] 4 mg TL Q6H PRN #10 tablet 03/23/21 - Allergies Allergies/Adverse Reactions: Allergies Allergy/AdvReac Type Severity Reaction Status Date / Time No Known Drug Allergies Allergy Verified 03/23/21 12:28 - Social History Does the pt smoke?: Yes Smoking Status: Former smoker Does the pt drink ETOH?: Yes Does the pt have substance abuse?: Yes - Immunizations Immunizations are current?: Yes Immunizations: TDAP >10years/unknown - POLST Patient has POLST: No PD ED PE NORMAL - Vitals Vital signs reviewed: Yes - General General: Alert and oriented X 3, Well developed/nourished - Neck Neck: Supple, no meningeal sign, No adenopathy - Cardiac Cardiac: RRR, No murmur - Respiratory Respiratory: Clear bilaterally - Abdomen Abdomen: Normal bowel sounds, Soft, Non distended, No organomegaly, Other (tender RUQ area with some local guarding, but no percussion nor rebound tenderness. ) - Female Female : Deferred - Rectal Rectal: Deferred - Back Back: No CVA TTP - Derm Derm: Normal color, Warm and dry - Neuro Neuro: Alert and oriented X 3, No motor deficit, Normal speech Results - Vitals Vitals: Vital Signs - 24 hr 03/23/21 03/23/21 03/23/21 12:28 15:09 17:00 Temperature 36.2 C L 36.3 C L Heart Rate 102 H 89 81 Respiratory 18 16 14 Rate Blood Pressure 142/83 H 115/46 L 119/83 H O2 Saturation 100 99 100 Oxygen O2 Source Room air - Labs Labs: Laboratory Tests 03/23/21 03/23/21 03/23/21 12:40 12:49 12:49 WBC 6.2 RBC 4.92 Hgb 15.2 Hct 45.0 MCV 91.5 MCH 30.9 MCHC 33.8 RDW 12.4 Plt Count 249 MPV 8.8 Neut # (Auto) 3.6 Lymph # (Auto) 2.2 Knott # (Auto) 0.4 Eos # (Auto) 0.0 Baso # (Auto) 0.0 Absolute Nucleated RBC 0.00 Nucleated RBC % 0.0 Sodium 139 Potassium 3.7 Chloride 104 Carbon Dioxide 25 Anion Gap 10.0 BUN 12 Creatinine 0.7 Estimated GFR (MDRD) 100 Glucose 98 Calcium 9.9 Total Bilirubin 0.5 AST 23 ALT 31 Alkaline Phosphatase 56 Total Protein 8.0 Albumin 4.7 Globulin 3.3 Albumin/Globulin Ratio 1.4 Lipase 49 Urine Color YELLOW Urine Clarity CLEAR Urine pH 5.5 Ur Specific [place] >=1.030 H Urine Protein NEGATIVE Urine Glucose (UA) NEGATIVE Urine Ketones NEGATIVE Urine Occult Blood NEGATIVE Urine Nitrite NEGATIVE Urine Bilirubin NEGATIVE Urine Urobilinogen 0.2 (NORMAL) Ur Leukocyte Esterase NEGATIVE Ur Microscopic Review NOT INDICATED Urine Culture Comments NOT INDICATED Urine HCG, Qual NEGATIVE - Rads (name of study) RUQ abd U/S Radiology: Prelim report reviewed (renal cyst, fatty liver - not significant. Normal GB. Noted some mild right hydronephrosis that improved after she voided. Not c/w stone. ), See rad report PD MEDICAL DECISION MAKING - ED course Complexity details: reviewed results (no significant findings on U/S.), considered differential, d/w patient Departure - Departure Disposition: 01 Home, Self Care Clinical Impression: Right upper quadrant abdominal pain Condition: Stable Record reviewed to determine appropriate education?: Yes Instructions: ED Abdominal Pain Unkn Cause Follow-Up: Claudette Vaughn PA-C [Primary Care Provider] - Prescriptions: HYDROcod/ACETAM 5/325 [[place] 5/325] 1 ea PO Q6H PRN #15 tablet PRN Reason: Pain Famotidine [Pepcid] 20 mg PO BID #20 tablet Ondansetron Odt [Zofran] 4 mg TL Q6H PRN #10 tablet PRN Reason: Nausea / Vomiting Comments: Your ultrasound did not show any gallbladder problems. They were incidental findings of mild fatty liver and a small kidney cyst and these are not problems that need following up and do not typically cause pain. No signs of gallbladder pancreas or liver problems to cause pain. Blood tests are normal. I would presume likely some irritation of the initial part of the intestine called the duodenum. I would suggest some acid reducing medicine famotidine twice daily for the next week and a half. Add Mylanta or Maalox type antacids several times daily as well. Ondansetron if needed for nausea. Add Tylenol 4 times a day for pain or hydrocodone for worse pain. Follow-up with your primary care or return to the ER if not well improved and resolved within the next 3 to 5 days return sooner if worse. Discharge Date/Time: 03/23/21 17:45
[2021-03-23 15:05] LABS: BILIRUBIN,URINE NEGATIVE (NEGATIVE); CLARITY,URINE CLEAR (CLEAR); GLUCOSE, URINE (UA) NEGATIVE (NEGATIVE); HCG UR QUAL NEGATIVE; KETONES,URINE (UA) NEGATIVE (NEGATIVE); LEUKOCYTE ESTERASE, URINE NEGATIVE (NEGATIVE); NITRITE,URINE NEGATIVE (NEGATIVE); OCCULT BLOOD,URINE NEGATIVE (NEGATIVE); PH,URINE 5.5 PH (5.0-7.5); PROTEIN,URINE NEGATIVE (NEGATIVE); UROBILINOGEN,URINE 0.2 (NORMAL) E.U./dL (NORMAL)
[2021-03-23] MEDS ORDERED: SODIUM CHLORIDE 0.9% 1,000 ML IV STA (15:17)
[2021-03-23] MEDS ORDERED: MORPHINE 2 MG/ML CARPUJECT IVP STA (15:17)
[2021-03-23] MEDS ORDERED: ONDANSETRON 4 MG/2 ML VIAL IVP STA (15:17)
[2021-03-23] MEDS ORDERED: ACETAMINOPHEN 325 MG TABLET PO STA (15:51)
[2021-03-23] MEDS ORDERED: FAMOTIDINE 20 MG TABLET PO STA (17:10)
[2021-03-23 17:36] VITALS: BP 119/83
--- NOTE | 2021-03-23 17:39 | Ultrasound Report ---
PROCEDURE: Abdomen Limited INDICATIONS: RUQ abd pain since this morning TECHNIQUE: Real-time focused scanning was performed of the abdomen, with image documentation. COMPARISON: Prior CT abdomen/pelvis 09/03/2018 reviewed. FINDINGS: The study is limited at clinician request, targeted to the right upper quadrant for pain o misael the morning and the patient was not fasting for this study. The liver is found to be coarse, elev ated and echotexture, consistent with fatty infiltration. The liver measures 17 cm craniocaudad but o verall volume appears somewhat prominent. The gallbladder appears normal without stones. Gallbladder wall is normal in thickness at 1.8 mm. The bile ducts are normal in caliber with the common duct abram uring 5.7 mm. The pancreas visualized appears normal. The right kidney was also included on this stud y and measures 12.5 cm craniocaudad with a right renal cortical cyst measuring 2.5 x 2.0 x 2.3 cm. IMPRESSION: Fatty infiltration within the liver, liver size is generous. Right renal cortical cyst appears simple . Slight prominence of the collecting system at the right kidney was incidentally noted but this reso lved with voiding. Therefore, obstructive influence is not suspected. Reviewed by: Alejandro Madden MD on 03/23/2021 5:38 PM PDT Approved by: Alejandro Madden MD on 03/23/2021 5:38 PM PDT Station ID: [id number]
== END 2021-03-23 17:45 | disposition home or self-care (01) ==
LOC: ED 12:13
DX: R10.11 Right upper quadrant pain (principal); R11.0 Nausea; K76.0 Fatty (change of) liver, not elsewhere classified; N28.1 Cyst of kidney, acquired; Z87.891 Personal history of nicotine dependence
CPT/HCPCS: 36415; 76705; 80053; 81003; 81025; 83690; 85025; 96374; 99284; A9270; 81001; 87086

== ENCOUNTER 2021-04-21 14:03 | Outpatient (CLI) | payer MEDICAID ==
--- NOTE | 2021-04-21 16:50 | Ultrasound Report ---
PROCEDURE: Retroperitoneal INDICATIONS: RIGHT RENAL CYST TECHNIQUE: Real-time scanning was performed of the retroperitoneal organs, with image documentation. COMPARISON: 03/23/2021 ultrasound FINDINGS: Kidneys: Kidneys are normal in size. Right kidney measures 11.8 cm long; left kidney measures 11.0 cm long. Right renal cortical thickness is 1.7 cm; left renal cortical thickness is 1.6 cm. No darrius d masses, hydronephrosis, or nephrolithiasis. There is mild bilateral pelviectasis. Right renal cyst measuring 2.3 x 2.0 x 2.1 cm. No interval change Pancreas: Visualized portions of the pancreas are sonographically normal. Aorta: Visualized aorta is normal in caliber at 3 cm or less. Iliac arteries: Proximal common iliac arteries are normal in caliber at 2.5 cm or less. IVC: Intrahepatic inferior vena cava is patent. Miscellaneous: No free abdominal fluid. IMPRESSION: Simple appearing right renal cyst. No hydronephrosis Reviewed by: Andrew Alex MD on 04/21/2021 4:49 PM PDT Approved by: Andrew Alex MD on 04/21/2021 4:49 PM PDT Station ID: [id number]
== END 2021-04-21 14:04 | disposition home or self-care (01) ==
LOC: DI 14:03
PROVIDERS: ATTEND Emergency Medicine
DX: N28.1 Cyst of kidney, acquired (principal)

== ENCOUNTER 2022-01-11 12:19 | Emergency (ER) | payer OTHER, MEDICAID ==
[2022-01-11 12:33] VITALS: BP 131/82
--- NOTE | 2022-01-11 12:44 | ED Physician Documentation ---
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 No weakness, numbness, tingling in the extremities. No saddle anesthesia or incontinence. No fevers. 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: Ovarian cysts, Other : Renal insuffiency, Other HEENT: None Psych: Depression, Anxiety Musculoskeletal: None Derm: None - Past Surgical History Past Surgical History: Yes General: Appendectomy /JUNK REMOVAL SPECIALIST: section - Present Medications Home Medications: Ambulatory Orders Medication Instructions Recorded Confirmed Famotidine [Pepcid] 20 mg PO BID #20 tablet 03/23/21 HYDROcod/ACETAM 5/325 [[place] 5/325] 1 ea PO Q6H PRN #15 tablet 03/23/21 Ondansetron Odt [Zofran] 4 mg TL Q6H PRN #10 tablet 03/23/21 - Allergies Allergies/Adverse Reactions: Allergies Allergy/AdvReac Type Severity Reaction Status Date / Time No Known Drug Allergies Allergy Verified 01/11/22 12:33 - Social History Does the pt smoke?: Yes Smoking Status: Former smoker Does the pt drink ETOH?: Yes Does the pt have substance abuse?: Yes - Immunizations Immunizations are current?: Yes Immunizations: TDAP >10years/unknown - POLST Patient has POLST: No PD ED PE NORMAL - Vitals Vital signs reviewed: Yes - General General: Alert and oriented X 3, No acute distress - Back Back: No CVA TTP, Other (Mild muscular tenderness of the low back without focal midline spinal tenderness) - Derm Derm: Normal color, Warm and dry - Extremities Extremities: No edema, No calf tenderness / cord, Other (The patient has equal and normal Achilles and patellar reflexes bilaterally. Normal sensation in all areas of the legs. Patient denies saddle anesthesia. Normal strength in flexion-extension at the ankles, knees, and flexion of the hips.) Results - Vitals Vitals: Vital Signs - 24 hr 01/11/22 12:30 Temperature 36.1 C L Heart Rate 104 H Respiratory 18 Rate Blood Pressure 131/82 H O2 Saturation 99 Oxygen O2 Source Room air PD MEDICAL DECISION MAKING - ED course ED course: This patient has seemingly uncomplicated musculoskeletal back pain. The patient has no "red flags." Specifically denies IV drug use, fevers, incontinence, saddle anesthesia. Spinal epidural abscess was considered, given that the patient has no fever, is not diabetic, has no spinal tenderness, does not use IV drugs, and has no bilateral neurologic symptoms, the diagnosis of spinal epidural abscess is considered exceedingly unlikely.. L&I paperwork completed Departure - Departure Disposition: 01 Home, Self Care Clinical Impression: Lumbar strain Qualifiers: Encounter type: initial encounter Qualified Code(s): S39.012A - Strain of muscle, fascia and tendon of lower back, initial encounter Condition: Good Record reviewed to determine appropriate education?: Yes Instructions: ED Sprain Strain Lumbar Comments: Heat, ibuprofen and/or Tylenol per package instructions for pain, gentle stretching. Follow-up with your doctor in a week if not better, return for new or worsening symptoms. Forms: Activity restrictions
== END 2022-01-11 12:58 | disposition home or self-care (01) ==
LOC: ED 12:19
DX: S39.012A Strain of muscle, fascia and tendon of lower back, initial encounter (principal); X50.0XXA Overexertion from strenuous movement or load, initial encounter; Y99.0 Civilian activity done for income or pay; Z87.891 Personal history of nicotine dependence
CPT/HCPCS: 1040M; 99282

== ENCOUNTER 2022-02-17 13:32 | Emergency (ER) | payer MEDICAID ==
[2022-02-17 14:07] LABS: BASOPHILS % (AUTO) 0.3 %; EOSINOPHILS % (AUTO) 0.2 %; HCT - HEMATOCRIT 42.4 % (37.0-47.0); HGB - HEMOGLOBIN 14.5 g/dL (12.0-16.0); LYMPHOCYTES # (AUTO) 2.5 10^3/uL (1.5-3.5); LYMPHOCYTES % (AUTO) 42.6 %; MEAN CORPUSCULAR HEMOGLOBIN 30.1 pg (27.0-31.0); MEAN CORPUSCULAR HGB CONC 34.2 g/dL (32.0-36.0); MEAN CORPUSCULAR VOLUME 88.1 fL (81.0-99.0); MEAN PLATELET VOLUME 8.6 fL (7.9-10.8); MONOCYTES # (AUTO) 0.3 10^3/uL (0.0-1.0); MONOCYTES % (AUTO) 5.7 %; NEUTROPHILS # (AUTO) 2.9 10^3/uL (1.5-6.6); PLT - PLATELET COUNT 236 10^3/uL (130-450); RED BLOOD COUNT 4.81 10^6/uL (4.20-5.40); RED CELL DISTRIBUTION WIDTH 13.2 % (12.0-15.0); WHITE BLOOD COUNT 5.8 x10^3/uL (4.8-10.8)
[2022-02-17 14:18] LABS: ALBUMIN 4.8 g/dL (3.2-5.5); ALBUMIN/GLOBULIN RATIO 1.5 (1.0-2.2); BILIRUBIN,TOTAL 0.8 mg/dL (0.2-1.0); CALCIUM 10.6 mg/dL (8.5-10.3); CREATININE 0.8 mg/dL (0.4-1.0); POTASSIUM 4.5 mmol/L (3.5-5.0)
[2022-02-17 14:48] LABS: BILIRUBIN,URINE NEGATIVE (NEGATIVE); GLUCOSE, URINE (UA) NEGATIVE (NEGATIVE); KETONES,URINE (UA) NEGATIVE (NEGATIVE); LEUKOCYTE ESTERASE, URINE NEGATIVE (NEGATIVE); NITRITE,URINE NEGATIVE (NEGATIVE); OCCULT BLOOD,URINE NEGATIVE (NEGATIVE); PROTEIN,URINE NEGATIVE (NEGATIVE); UROBILINOGEN,URINE 0.2 (NORMAL) E.U./dL (NORMAL)
[2022-02-17 14:50] LABS: CLARITY,URINE CLEAR (CLEAR); HCG UR QUAL NEGATIVE
--- NOTE | 2022-02-17 15:15 | ED Physician Documentation ---
History of Present Illness - Stated complaint Stated Complaint: DIZZY, LOWER ABD PX - Chief complaint Chief Complaint: Abd Pain - History obtained from History obtained from: Patient - History of Present Illness Timing: Today Pain level max: 5 Pain level now: 5 - Additonal information Additional information: Patient is a 31-year-old female who presents to the emergency department with lower abdominal pain today. She states it feels like her normal ovarian pain. History of ovarian cyst. She also has an IUD and was concerned it may have migrated. Nothing makes it better or worse. No fevers. No diarrhea. No vomiting. No changes in her vaginal discharge. No STD exposure. 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: Ovarian cysts, Other : Renal insuffiency, Other HEENT: None Psych: Depression, Anxiety Musculoskeletal: None Derm: None - Past Surgical History Past Surgical History: Yes General: Appendectomy /DEVELOPMENT VICE PRESIDENT: section - Present Medications Home Medications: Ambulatory Orders Medication Instructions Recorded Confirmed No Known Home Medications 01/11/22 01/11/22 - Allergies Allergies/Adverse Reactions: Allergies Allergy/AdvReac Type Severity Reaction Status Date / Time No Known Drug Allergies Allergy Verified 02/17/22 13:40 - Social History Does the pt smoke?: Yes Smoking Status: Former smoker Does the pt drink ETOH?: Yes Does the pt have substance abuse?: Yes - Immunizations Immunizations are current?: Yes Immunizations: TDAP >10years/unknown - POLST Patient has POLST: No PD ED PE NORMAL - Vitals Vital signs reviewed: Yes - General General: Alert and oriented X 3, No acute distress - HEENT HEENT: Moist mucous membranes - Neck Neck: Supple, no meningeal sign - Cardiac Cardiac: RRR - Respiratory Respiratory: No respiratory distress, Clear bilaterally - Abdomen Abdomen: Soft, Non tender, Non distended - Derm Derm: Warm and dry - Neuro Neuro: Alert and oriented X 3 - Psych Psych: Normal mood, Normal affect Results - Vitals Vitals: Vital Signs - 24 hr 02/17/22 02/17/22 13:36 16:06 Temperature 36.8 C Heart Rate 90 88 Respiratory 14 18 Rate Blood Pressure 119/81 H 120/80 O2 Saturation 97 100 Oxygen O2 Source Room air - Labs Labs: Laboratory Tests 02/17/22 02/17/22 02/17/22 13:50 14:01 14:01 WBC 5.8 RBC 4.81 Hgb 14.5 Hct 42.4 MCV 88.1 MCH 30.1 MCHC 34.2 RDW 13.2 Plt Count 236 MPV 8.6 Neut # (Auto) 2.9 Lymph # (Auto) 2.5 [place] # (Auto) 0.3 Eos # (Auto) 0.0 Baso # (Auto) 0.0 Absolute Nucleated RBC 0.00 Nucleated RBC % 0.0 Sodium 136 Potassium 4.5 Chloride 102 Carbon Dioxide 24 Anion Gap 10.0 BUN 13 Creatinine 0.8 Estimated GFR (MDRD) 85 L Glucose 87 Calcium 10.6 H Total Bilirubin 0.8 AST 24 ALT 25 Alkaline Phosphatase 66 Total Protein 8.0 Albumin 4.8 Globulin 3.2 Albumin/Globulin Ratio 1.5 Lipase 46 Urine Color YELLOW Urine Clarity CLEAR Urine pH 6.0 Ur Specific [place] 1.025 Urine Protein NEGATIVE Urine Glucose (UA) NEGATIVE Urine Ketones NEGATIVE Urine Occult Blood NEGATIVE Urine Nitrite NEGATIVE Urine Bilirubin NEGATIVE Urine Urobilinogen 0.2 (NORMAL) Ur Leukocyte Esterase NEGATIVE Ur Microscopic Review NOT INDICATED Urine Culture Comments NOT INDICATED Urine HCG, Qual NEGATIVE - Rads (name of study) Pelvic US Radiology: Final report received, EMP read contemporaneously, See rad report PD MEDICAL DECISION MAKING - ED course Complexity details: reviewed results, re-evaluated patient, considered differential, d/w patient ED course: 31-year-old female with pelvic pain. Appears to have a complex right ovarian cyst, suggesting hemorrhagic cyst. IUD is in the lower uterine segment. She declines any pain medication here or for home. She will follow up with her doctor for further care. Patient counseled regarding signs and symptoms for which I believe and urgent re-evaluation would be necessary. Patient with good understanding of and agreement to plan and is comfortable going home at this time This document was made in part using voice recognition software. While efforts are made to proofread this document, sound alike and grammatical errors may occur. IMPRESSION: IUD noted within the lower uterine segment. Complex focus within the right ovary suggestive hemorrhagic cyst. Departure - Departure Disposition: 01 Home, Self Care Clinical Impression: Ovarian cyst Qualifiers: Laterality: right Qualified Code(s): N83.201 - Unspecified ovarian cyst, right side IUD migration Qualifiers: Encounter type: initial encounter Qualified Code(s): T83.32XA - Displacement of intrauterine contraceptive device, initial encounter Condition: Good Instructions: ED Cyst Ovarian Follow-Up: Your,doctor in 1 week [Other] Comments: You have a complex right ovarian cyst. This can be followed up with your doctor in 4 to 6 weeks to ensure resolution. Your IUD is in the lower uterine segment, if this is causing your pain, your doctor can also remove this. Please return if you worsen. If your pain worsens, we can remove your IUD at that time. Your cyst measures 2.5 x 2.2 x 2.4 cm. Discharge Date/Time: 02/17/22 16:07
--- NOTE | 2022-02-17 16:03 | Ultrasound Report ---
PROCEDURE: Pelvic w/Transvag+Doppler Comp INDICATIONS: pelvic pain, h/o ovarian cysts TECHNIQUE: Real-time scanning was performed of the pelvic organs, with image documentation. Additional endovagi nal scanning was necessary due to incomplete visualization of the adnexal and endometrial structures by transabdominal scanning. Doppler interrogation was performed of the ovaries bilaterally. COMPARISON: None. FINDINGS: No pathologic free abdominal or pelvic fluid. Uterus: Uterus is normal in size at 9.1 x 4.3 x 4.9 cm. The endometrium measures 7.9 mm in combined thickness. IUD is present located in the lower uterine segment. Trace fluid is noted in the cervix. Ovaries: Right ovary measures 4.3 x 2.1 x 4.1 cm, volume 81 cc. Complex focus of echogenicity is pre sent within the right ovary measuring 2.5 x 2.2 x 2.4 cm. Left ovary measures 2.4 x 1.1 x 1.4 cm, vol ume 1.9 cc. Normal appearing arterial and venous waveforms are confirmed to each ovary.] IMPRESSION: IUD noted within the lower uterine segment. Complex focus within the right ovary suggestive hemorrhagic cyst. Reviewed by: Adrianna Santos MD on 02/17/2022 4:01 PM PDT Approved by: Adrianna Santos MD on 02/17/2022 4:01 PM PDT Station ID: [id number]
[2022-02-17 16:07] VITALS: BP 120/80
== END 2022-02-17 16:07 | disposition home or self-care (01) ==
LOC: ED 13:32
DX: T83.32XA Displacement of intrauterine contraceptive device, initial encounter (principal); N83.201 Unspecified ovarian cyst, right side; Z87.891 Personal history of nicotine dependence
CPT/HCPCS: 36415; 80053; 81001; 81003; 81025; 83690; 85025; 87086; 93975; 99282; 99284

== ENCOUNTER 2022-05-18 07:59 | Emergency (ER) | payer MEDICAID, OTHER ==
[2022-05-18 08:25] LABS: BASOPHILS % (AUTO) 0.7 %; EOSINOPHILS % (AUTO) 0.4 %; HGB - HEMOGLOBIN 15.5 g/dL (12.0-16.0); LYMPHOCYTES % (AUTO) 42.4 %; MEAN CORPUSCULAR HEMOGLOBIN 29.8 pg (27.0-31.0); MEAN CORPUSCULAR HGB CONC 34.4 g/dL (32.0-36.0); MEAN CORPUSCULAR VOLUME 86.5 fL (81.0-99.0); MEAN PLATELET VOLUME 8.5 fL (7.9-10.8); MONOCYTES # (AUTO) 0.3 10^3/uL (0.0-1.0); MONOCYTES % (AUTO) 7.4 %; NEUTROPHILS # (AUTO) 2.3 10^3/uL (1.5-6.6); NEUTROPHILS % (AUTO) 48.9 %; PLT - PLATELET COUNT 225 10^3/uL (130-450); RED CELL DISTRIBUTION WIDTH 12.7 % (12.0-15.0); WHITE BLOOD COUNT 4.6 x10^3/uL (4.8-10.8)
--- NOTE | 2022-05-18 08:28 | ED Physician Documentation ---
PD HPI ABD PAIN - Stated complaint Stated Complaint: CHILLS,NAUSEA,R SIDE PX - Chief complaint Chief Complaint: Abd Pain - History obtained from History obtained from: Patient - History of Present Illness Timing - onset: Last night Timing - duration: Hours (10-12 hours of nausea, fatigue, chills, and RUQ abd pain.) Timing - details: Abrupt onset, Still present Quality: Cramping, Aching, Pain Location: RUQ, Epigastric Radiation: No: Chest, Lower back, Right flank Improved by: No: Vomiting Worsened by: Eating Associated symptoms: Nausea, Vomiting (few times). No: Fever (took temp and was normal but felt chills through night), Hematemesis, Diarrhea, Constipation Similar symptoms before: Has not had sx before Recently seen: Not recently seen Review of Systems Constitutional: reports: Chills, Myalgias Nose: denies: Rhinorrhea / runny nose, Congestion Throat: denies: Sore throat Respiratory: denies: Cough GI: reports: Abdominal Pain, Nausea, Vomiting. denies: Abdominal Swelling, Constipation, Diarrhea : denies: Dysuria, Frequency Neurologic: reports: Generalized weakness. 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: Ovarian cysts, Other : Renal insuffiency, Other (known right renal cyst) HEENT: None Psych: Depression, Anxiety Musculoskeletal: None Derm: None - Past Surgical History Past Surgical History: Yes General: Appendectomy /TIE LAYER: section - Present Medications Home Medications: Ambulatory Orders Medication Instructions Recorded Confirmed Famotidine [Pepcid] 20 mg PO BID #20 tablet 05/18/22 Ondansetron Odt [Zofran] 4 mg TL Q6H PRN #10 tablet 05/18/22 - Allergies Allergies/Adverse Reactions: Allergies Allergy/AdvReac Type Severity Reaction Status Date / Time No Known Drug Allergies Allergy Verified 05/18/22 08:04 - Social History Does the pt smoke?: No Smoking Status: Never smoker Does the pt drink ETOH?: Yes Does the pt have substance abuse?: Yes Substance Use and Type: CBD oil / Products - Immunizations Immunizations are current?: Yes Immunizations: TDAP >10years/unknown - POLST Patient has POLST: No PD ED PE NORMAL - Vitals Vital signs reviewed: Yes - General General: Alert and oriented X 3, Well developed/nourished, Other (appears uncomfortable; holding upper abd. ) - HEENT HEENT: Pharynx benign - Neck Neck: Supple, no meningeal sign, No adenopathy - Cardiac Cardiac: RRR, No murmur - Respiratory Respiratory: Clear bilaterally - Abdomen Abdomen: Normal bowel sounds, Soft, Non distended, No organomegaly, Other (tender RUQ with local guarding and rebound. No referred tenderness. Lower abd not tender. ) - Female Female : Deferred - Rectal Rectal: Deferred - Back Back: No CVA TTP - Derm Derm: Normal color, No rash - Extremities Extremities: No edema, No calf tenderness / cord - Neuro Neuro: Alert and oriented X 3, No motor deficit, Normal speech Results - Vitals Vitals: Vital Signs - 24 hr 05/18/22 05/18/22 08:32 10:09 Temperature 36.2 C L Heart Rate 94 71 Respiratory 16 15 Rate Blood Pressure 121/88 H 123/79 O2 Saturation 98 95 Oxygen O2 Source Room air - Labs Labs: Laboratory Tests 05/18/22 05/18/22 05/18/22 08:21 08:21 08:33 WBC 4.6 L RBC 5.20 Hgb 15.5 Hct 45.0 MCV 86.5 MCH 29.8 MCHC 34.4 RDW 12.7 Plt Count 225 MPV 8.5 Neut # (Auto) 2.3 Lymph # (Auto) 2.0 [place] # (Auto) 0.3 Eos # (Auto) 0.0 Baso # (Auto) 0.0 Absolute Nucleated RBC 0.00 Nucleated RBC % 0.0 Sodium 137 Potassium 3.8 Chloride 102 Carbon Dioxide 25 Anion Gap 10.0 BUN 15 Creatinine 0.9 Estimated GFR (MDRD) 74 L Glucose 101 H Calcium 9.8 Total Bilirubin 0.6 AST 21 ALT 19 Alkaline Phosphatase 56 Total Protein 8.2 Albumin 4.6 Globulin 3.6 Albumin/Globulin Ratio 1.3 Lipase 56 H Urine Color YELLOW Urine Clarity CLEAR Urine pH 6.0 Ur Specific [place] 1.020 Urine Protein NEGATIVE Urine Glucose (UA) NEGATIVE Urine Ketones NEGATIVE Urine Occult Blood NEGATIVE Urine Nitrite NEGATIVE Urine Bilirubin NEGATIVE Urine Urobilinogen 0.2 (NORMAL) Ur Leukocyte Esterase NEGATIVE Ur Microscopic Review NOT INDICATED Urine Culture Comments NOT INDICATED Urine HCG, Qual NEGATIVE - Rads (name of study) right upper abd U/S Radiology: Prelim report reviewed (no acute findings. Incidental right renal cyst. ), See rad report Departure - Departure Disposition: 01 Home, Self Care Clinical Impression: Right upper quadrant abdominal pain Condition: Stable Record reviewed to determine appropriate education?: Yes Instructions: ED Abdominal Pain Female Non-Specific Abdominal Pain Prescriptions: Famotidine [Pepcid] 20 mg PO BID #20 tablet Ondansetron Odt [Zofran] 4 mg TL Q6H PRN #10 tablet PRN Reason: Nausea / Vomiting Comments: Your ultrasound does not show any abnormalities of pancreas gallbladder and liver. There is a small cyst in your kidney which you have previously known about. Its still there. No swelling of the kidney otherwise. Your blood tests are normal (your lipase which is a pancreas marker is one-point above the normal range so not a significant abnormality). At this point I would presume then that your pain is more from stomach or the initial part of the intestine called the duodenum. We would treat this with acid reducing medicine such as famotidine twice daily for 7 to 10 days. Add in antacid such as Maalox or Mylanta periodically if needed for pain. To that add Tylenol every 4-6 hours if needed for pain. I would less use NSAIDs such as ibuprofen as that could irritate your stomach even though it may help the pain. Recheck if not improved well over the next several days and resolved by 3 to 5 days. Return if worse or other symptoms develop. I wrote a prescription for the famotidine as well as some nausea medicine called ondansetron if you need those. Discharge Date/Time: 05/18/22 10:52
[2022-05-18 08:41] LABS: ALBUMIN 4.6 g/dL (3.2-5.5); ALBUMIN/GLOBULIN RATIO 1.3 (1.0-2.2); BILIRUBIN,TOTAL 0.6 mg/dL (0.2-1.0); CALCIUM 9.8 mg/dL (8.5-10.3); CREATININE 0.9 mg/dL (0.4-1.0); POTASSIUM 3.8 mmol/L (3.5-5.0); TOTAL PROTEIN 8.2 g/dL (6.7-8.2)
[2022-05-18 08:42] LABS: BILIRUBIN,URINE NEGATIVE (NEGATIVE); GLUCOSE, URINE (UA) NEGATIVE (NEGATIVE); KETONES,URINE (UA) NEGATIVE (NEGATIVE); LEUKOCYTE ESTERASE, URINE NEGATIVE (NEGATIVE); NITRITE,URINE NEGATIVE (NEGATIVE); OCCULT BLOOD,URINE NEGATIVE (NEGATIVE); PROTEIN,URINE NEGATIVE (NEGATIVE); UROBILINOGEN,URINE 0.2 (NORMAL) E.U./dL (NORMAL)
[2022-05-18 08:45] LABS: CLARITY,URINE CLEAR (CLEAR); HCG UR QUAL NEGATIVE
[2022-05-18] MEDS ORDERED: SODIUM CHLORIDE 0.9% 1,000 ML IV STA (08:50)
[2022-05-18] MEDS ORDERED: HYDROmorphone 1 MG/ML CARPUJECT IVP STA (08:50)
[2022-05-18] MEDS ORDERED: ONDANSETRON 4 MG/2 ML VIAL IVP STA (08:50)
[2022-05-18] MEDS ORDERED: KETOROLAC 15 MG/ML VIAL IVP STA (08:50)
[2022-05-18] MEDS ORDERED: FAMOTIDINE 20 MG/2 ML VIAL IVP STA (09:46)
[2022-05-18] MEDS ORDERED: MAG HYDROX/AL HYDROX/SIMETH 30 ML UDC PO STA (09:46)
[2022-05-18 10:12] VITALS: BP 123/79
--- NOTE | 2022-05-18 10:29 | Ultrasound Report ---
PROCEDURE: Abdomen Limited INDICATIONS: RUQ pain since yesterday TECHNIQUE: Real-time focused scanning was performed of the abdomen, with image documentation. COMPARISON: 03/23/2021 and 04/21/2021. FINDINGS: Liver is normal in size and shows normal liver parenchymal echotexture. No discrete hepatic lesion is seen. There is no gallstone. No gallbladder wall thickening or pericholecystic fluid. No sonographic Colbert 's sign. There is no intrahepatic biliary ductal dilatation. Common bile that measures 5.9 mm in diameter and is within normal limits. Visualized portion of pancreas shows no gross abnormality. Right kidney measures 11.8 cm in length and 1.7 cm in renal cortical thickness. 2.6 x 2 x 2.3 cm simp le cyst is seen in upper pole right kidney. There is no hydronephrosis or nephrolithiasis. No gross s olid appearing renal lesion. No abdominal free fluid. IMPRESSION: Unremarkable ultrasound examination of right upper quadrant abdomen. Incidentally noted of right latrice l cyst as above. Reviewed by: Carlos Brock MD on 05/18/2022 10:28 AM PDT Approved by: Carlos Brock MD on 05/18/2022 10:28 AM PDT Station ID: [id number]
== END 2022-05-18 10:52 | disposition home or self-care (01) ==
LOC: ED 07:59
DX: R10.11 Right upper quadrant pain (principal)
CPT/HCPCS: 36415; 76705; 80053; 81003; 81025; 83690; 85025; 96374; 96375; 99282; 99285; A9270; J1170; 81001; 87086

== ENCOUNTER 2022-09-19 12:08 | Outpatient (CLI) | payer OTHER ==
[2022-09-19 12:24] LABS: BASOPHILS % (AUTO) 0.3 %; EOSINOPHILS % (AUTO) 0.4 %; HCT - HEMATOCRIT 45.3 % (37.0-47.0); HGB - HEMOGLOBIN 15.3 g/dL (12.0-16.0); LYMPHOCYTES # (AUTO) 2.5 10^3/uL (1.5-3.5); LYMPHOCYTES % (AUTO) 36.6 %; MEAN CORPUSCULAR HEMOGLOBIN 29.7 pg (27.0-31.0); MEAN CORPUSCULAR HGB CONC 33.8 g/dL (32.0-36.0); MEAN PLATELET VOLUME 8.8 fL (7.9-10.8); MONOCYTES # (AUTO) 0.3 10^3/uL (0.0-1.0); MONOCYTES % (AUTO) 4.9 %; NEUTROPHILS # (AUTO) 3.9 10^3/uL (1.5-6.6); NEUTROPHILS % (AUTO) 57.7 %; PLT - PLATELET COUNT 251 10^3/uL (130-450); RED BLOOD COUNT 5.15 10^6/uL (4.20-5.40); RED CELL DISTRIBUTION WIDTH 11.9 % (12.0-15.0); WHITE BLOOD COUNT 6.7 x10^3/uL (4.8-10.8)
[2022-09-19 12:37] LABS: ALBUMIN 4.7 g/dL (3.2-5.5); ALBUMIN/GLOBULIN RATIO 1.6 (1.0-2.2); BILIRUBIN,TOTAL 0.5 mg/dL (0.2-1.0); CALCIUM 10.2 mg/dL (8.5-10.3); CREATININE 0.8 mg/dL (0.4-1.0); POTASSIUM 3.8 mmol/L (3.5-5.0); TOTAL PROTEIN 7.7 g/dL (6.7-8.2)
== END 2022-09-19 12:09 | disposition home or self-care (01) ==
LOC: LAB 12:08
PROVIDERS: ATTEND Obstetrics & Gynecology
DX: Z01.812 Encounter for preprocedural laboratory examination (principal)
CPT/HCPCS: 36415; 80053; 85025; 86850; 86900; 86901

== ENCOUNTER 2022-09-20 09:01 | Day surgery (SDC) | payer OTHER ==
[2022-09-20] MEDS ORDERED: LACTATED RINGERS 1,000 ML IV ONE ×2 (09:06→13:54)
[2022-09-20] MEDS ORDERED: PROPOFOL 200 MG/20 ML VIAL IVP ONE (09:59)
[2022-09-20] MEDS ORDERED: ROCURONIUM 50 MG/5 ML VIAL ONE (09:59)
[2022-09-20] MEDS ORDERED: fentaNYL 100 MCG/2 ML VIAL ONE (10:00)
[2022-09-20] MEDS ORDERED: MIDAZOLAM 2 MG/2 ML VIAL ONE (10:00)
[2022-09-20] MEDS ORDERED: LIDOCAINE-PF 2% 10 ML AMP SUBQ ONE (10:01)
[2022-09-20] MEDS ORDERED: BUPIVACAINE 0.25% PF 10 ML VIAL ONE (10:02)
[2022-09-20 10:18] LABS: HCG UR QUAL NEGATIVE
--- NOTE | 2022-09-20 10:19 | ANESTHESIA ---
Pre-Anesthesia VS, & Labs - Diagnosis desires sterilization - Procedure laparoscopic salphingectomy Vital Signs: Temp Pulse Resp BP Pulse Ox O2 Flow Rate 36 C L 84 16 132/79 H 98 09/20/22 09:17 09/20/22 09:17 09/20/22 09:17 09/20/22 09:17 09/20/22 09:17 Height: 5 ft 5 in Weight (kg): 93 kg Body Mass Index: 34.1 BMI Classification: Obese - NPO >8 hours - Is Patient ?: No Home Medications and Allergies Allergies/Adverse Reactions: Allergies Allergy/AdvReac Type Severity Reaction Status Date / Time No Known Drug Allergies Allergy Verified 05/18/22 08:04 Anes History & Medical History - Anesthetic History Anesthesia Complications: reports: No previous complications - Medical History Cardiovascular: reports: None Pulmonary: reports: None Gastrointestinal: reports: None Urinary: reports: Renal insuffiency, Other Neuro: reports: Other Musculoskeletal: reports: None Endocrine/Autoimmune: reports: None Blood Disorders: reports: None Skin: reports: None Smoking Status: Never smoker History of Cancer?: No - Surgical History General: reports: Appendectomy Gynecologic: reports: section Exam General: Alert, Oriented x3 Dental: WNL Mouth Opening: Greater than 4 Fingerbreadths Neck Mobility: Normal Mallampati classification: II Respiratory: Lungs clear Cardiovascular: Regular rate Plan Anesthesia Type: General Consent for Procedure(s) Verified and Reviewed: Yes Code Status: Attempt Resuscitation ASA classification: 2-Mild systemic disease Is this case an emergency?: No
[2022-09-20] MEDS ORDERED: BUPIVACAINE 0.25% PF 30 ML VIAL SUBQ ONE ×2 (12:50)
[2022-09-20] MEDS ORDERED: ONDANSETRON 4 MG/2 ML VIAL ONE ×2 (12:50→13:58)
[2022-09-20] MEDS ORDERED: DEXAMETHASONE 4 MG/ML VIAL ONE (12:50)
[2022-09-20] MEDS ORDERED: KETOROLAC 30 MG/ML VIAL ONE (13:10)
[2022-09-20] MEDS ORDERED: ACETAMINOPHEN 1,000 MG/100 ML 1,000 MG/100 ML BAG IV ONE (13:10)
[2022-09-20] MEDS ORDERED: METOCLOPRAMIDE 10 MG/2 ML VIAL IVP PRN (13:16)
[2022-09-20] MEDS ORDERED: fentaNYL 100 MCG/2 ML VIAL IVP PRN (13:16)
[2022-09-20] MEDS ORDERED: ATROPINE ABBOJECT 1 MG/10 ML SYRINGE IVP PRN (13:16)
[2022-09-20] MEDS ORDERED: NALOXONE 0.4 MG/ML VIAL IVP PRN (13:16)
[2022-09-20] MEDS ORDERED: ePHEDrine 50 MG/ML VIAL IVP PRN (13:16)
[2022-09-20] MEDS ORDERED: HYDROmorphone 0.5 MG/0.5 ML SYRINGE IVP PRN (13:16)
[2022-09-20] MEDS ORDERED: ONDANSETRON 4 MG/2 ML VIAL IVP PRN ×2 (13:16→13:47)
[2022-09-20] MEDS ORDERED: MORPHINE 2 MG/ML CARPUJECT IVP PRN (13:16)
[2022-09-20] MEDS ORDERED: SUGAMMADEX 200 MG/2 ML VIAL IVP ONE (13:42)
[2022-09-20] MEDS ORDERED: HYDROcod/ACETAM 10 MG/325 MG TABLET PO PRN (13:47)
--- NOTE | 2022-09-20 13:52 | OPERATIVE REPORT ---
Operative Report - General Procedure Date: 09/20/22 Planned Procedure: Laparoscopic bilateral salpingectomy Pre-Op Diagnosis: Desires sterility Procedure Performed: Laparoscopic bilateral salpingectomy Post Op Diagnosis: Status post laparoscopic bilateral salpingectomy - Procedure Note Primary Surgeon: Santhosh Freed MD Secondary Surgeon: Susan Durant DO Anesthesia Provider: Gisela Johnson CRNA Anesthesia Technique: General ET tube Pathology: Bilateral fallopian tubes IV Fluids (mL): 700 Estimated Blood Loss (mL): 30 Urine Output (mL): 60 Complications: None - Other Other Information/Narrative: Prior to surgery, we discussed the risks, alternatives, benefits to tubal ligation. We discussed long-acting control such as IUDs and implants. We had discussion about partner vasectomy and the pros and cons to this including a smaller surgery, and easier recovery. We discussed the general risk of surgery including infection, bleeding, damage to other organs, needing a larger incision. Specific to tubal ligation, we discussed the risk of regret, and discussed that regret is greater in those under 30, without children, and not in stable relationships. Patient says she is confident in her decision to not have any more children. We also discussed the risk of failure, and that less than 1/100 tubal ligation fail, but if it did, she would be at increased risk of ectopic . Patient desires to proceed with bilateral tubal ligation. Patient was taken to the OR and placed in the dorsal lithotomy position using great white stirrups after adequate anesthesia was obtained. Patient was prepped and draped in the usual fashion. A bivalve speculum was used to visualize the cervix and a uterine manipulator was placed. 2 mL of 0.25% Marcaine was used below the umbilicus. An 11 blade scalpel was used to incise the skin. A varies needle was used to achieve access to the abdomen and this was confirmed with hanging drop test. The gas was then attached and insufflated. After achieving pneumoperitoneum, direct visual entry was used to place the infraumbilical trocar. Upon entering the peritoneal cavity, low flow was used to ensure appropriate positioning. 2 additional trocars was placed under visualization in a similar fashion in the right and left lower quadrants in similar fashion to the umbilical trocar. After visualization of the left fallopian tube, it was noted to be thickened with abnormal architecture. There was a scar on the uterus and the cornual region. The tube was grasped with an atraumatic grasper at the fimbriated end and using the LigaSure device, it was transected mesosalpinx then transected. Due to the abnormal architecture, a distal salpingectomy was performed. Hemostasis was achieved with the LigaSure device. Attention was then turned to the right fallopian tube which was then removed starting with a distal, fimbriated end which was coagulated and cut and followed up the mesosalpinx and finally transected at the level of the cornua.. The abdomen was reviewed for hemostasis, and a healthy-appearing liver was noted. The trocars were then removed, and abdomen was evacuated of gas. The trocar sites were then closed with a 4-0 Monocryl in a sub-cuticular fashion and covered with Dermabond. Patient was taken to the PACU in stable condition. I appreciate the assistance of Dr. Durant during this procedure, and the assistance in retraction, visualization, dissection, and overall assistance during the case were instrumental to the patient's wellbeing.
[2022-09-20] MEDS ORDERED: LACTATED RINGERS 1,000 ML IV SCH (14:00)
[2022-09-20] MEDS: HYDROmorphone 1 MG/ML CARPUJECT ONE ×2 (14:06→14:18)
[2022-09-20] MEDS ORDERED: HYDROcod/ACETAM 10 MG/325 MG TABLET ONE (14:49)
--- NOTE | 2022-09-20 14:50 | ANESTHESIA POST OP EVALUATION ---
Anesthesia Post Eval - Post Anesthesia Eval Vitals: Last Vital Signs Temp 36.6 C 09/20/22 14:41 Pulse 92 09/20/22 14:41 Resp 18 09/20/22 14:41 BP 118/72 09/20/22 14:41 Pulse Ox 96 09/20/22 14:41 O2 Flow Rate CV Function Including HR & BP: Stable Pain Control: Satisfactory Nausea & Vomiting: Negative Mental Status: Baseline Respiratory Status: Airway Patent Hydration Status: Satisfactory Anesthesia Complications: None
[2022-09-20 15:11] VITALS: BP 11/67
== END 2022-09-20 09:02 | disposition home or self-care (01) ==
LOC: SDS 09:01
PROVIDERS: ATTEND Obstetrics & Gynecology
PROC: 0UB74ZZ Excision of Bilateral Fallopian Tubes, Percutaneous Endoscopic Approach (ICD-10-PCS; principal; 2022-09-20 10:15)
DX: Z30.2 Encounter for sterilization (principal); E66.9 Obesity, unspecified; Z68.34 Body mass index [BMI] 34.0-34.9, adult; Z87.891 Personal history of nicotine dependence
CPT/HCPCS: 36415; 58661; 81025; A9270; J0131; J1170; J7120

== ENCOUNTER 2022-12-22 13:45 | Emergency (ER) | payer OTHER ==
[2022-12-22 14:08] LABS: RAPID STREP SCREEN Negative (Negative)
[2022-12-22] MEDS ORDERED: predniSONE 20 MG TABLET PO STA (14:43)
[2022-12-22] MEDS ORDERED: AMOXICILLIN 250 MG CAPSULE PO STA (14:43)
--- NOTE | 2022-12-22 14:52 | ED Physician Documentation ---
History of Present Illness - Stated complaint Stated Complaint: EAR/THROAT PX - Chief complaint Chief Complaint: Heent - History obtained from History obtained from: Patient - Additonal information Additional information: The patient comes to the emergency department chief complaint sore throat and bilateral ear pain, worse on the right. Patient states that she has not had any fevers but has had a little bit of chills. She denies any rhinorrhea or cough. The patient has otherwise been feeling well. She had a COVID test that was negative yesterday. Patient denies any sick contact. No other complaints at this time. Review of Systems Constitutional: reports: Reviewed and negative Eyes: reports: Reviewed and negative Ears: reports: Ear pain Nose: reports: Reviewed and negative Throat: reports: Sore throat Cardiac: reports: Reviewed and negative Respiratory: reports: Reviewed and negative GI: reports: Reviewed and negative : reports: Reviewed and negative Skin: reports: Reviewed and negative Musculoskeletal: reports: Reviewed and negative Neurologic: reports: Reviewed and negative Psychiatric: reports: Reviewed and negative Endocrine: reports: Reviewed and negative Immunocompromised: reports: Reviewed and negative PD PAST MEDICAL HISTORY - Past Medical History Cardiovascular: None Respiratory: None Neuro: Other Endocrine/Autoimmune: None GI: None PLATE FORMER: Ovarian cysts, Other : Renal insuffiency, Other HEENT: None Psych: Depression, Anxiety, Panic attacks Musculoskeletal: None Derm: None - Past Surgical History Past Surgical History: Yes General: Appendectomy /PLATE FORMER: section - Present Medications Home Medications: Ambulatory Orders Medication Instructions Recorded Confirmed Amoxicillin 500 mg PO TID 7 Days #21 cap 12/22/22 predniSONE [Deltasone] 60 mg PO DAILY 5 Days #15 tablet 12/22/22 - Allergies Allergies/Adverse Reactions: Allergies Allergy/AdvReac Type Severity Reaction Status Date / Time No Known Drug Allergies Allergy Verified 12/22/22 13:50 - Social History Does the pt smoke?: No Smoking Status: Never smoker Does the pt drink ETOH?: Yes Does the pt have substance abuse?: Yes - Immunizations Immunizations are current?: Yes Immunizations: TDAP >10years/unknown - POLST Patient has POLST: No PD ED PE NORMAL - Vitals Vital signs reviewed: Yes - General General: Alert and oriented X 3, No acute distress, Well developed/nourished - HEENT HEENT: Atraumatic, PERRL, EOMI, Moist mucous membranes, Other (4+ tonsils, beefy red, copious exudates, Symmetrical) - Neck Neck: Supple, no meningeal sign, Other (Moderate bilateral anterior cervical lymphadenopathy.) - Cardiac Cardiac: RRR, No murmur, Strong equal pulses - Respiratory Respiratory: No respiratory distress, Clear bilaterally - Derm Derm: Normal color, Warm and dry, No rash - Extremities Extremities: No deformity - Neuro Neuro: Alert and oriented X 3 - Psych Psych: Normal mood, Normal affect Results - Vitals Vitals: Vital Signs - 24 hr 12/22/22 13:50 Temperature 37.2 C Heart Rate 100 Respiratory 16 Rate Blood Pressure 130/82 H O2 Saturation 99 Oxygen O2 Source Room air - Labs Labs: Laboratory Tests 12/22/22 13:54 Group A Strep Rapid Negative PD Medical Decision Making - ED course Complexity details: reviewed results, re-evaluated patient, considered differential, d/w patient ED course: The patient had a prominent exudative pharyngitis/tonsillitis, but was handling secretions well and did not appear in any danger of losing her airway. She had no edema of any of the rest of her oropharyngeal structures. She was given a dose of prednisone here in the emergency department. Based on the degree of her exudative pharyngitis, despite the negative strep rapid test, I felt that she should be treated with antibiotics for bacterial tonsillitis. I discussed with her the plan for symptomatic management at home, as well as the usual indications for return. Departure - Departure Disposition: 01 Home, Self Care Clinical Impression: Exudative pharyngitis, Tonsillitis Condition: Stable Instructions: ED Strep Pharyngitis Poss, ED Tonsillitis Prescriptions: Amoxicillin 500 mg PO TID 7 Days #21 cap predniSONE [Deltasone] 60 mg PO DAILY 5 Days #15 tablet Comments: Your rapid strep test is negative here. However, your throat exam is very consistent with a bacterial tonsillitis. As such, you have been started on antibiotics. Prescriptions for both antibiotics and steroid have been electronically transmitted to the [facility] in [place] your request. Your next dose of antibiotic should be this evening and your next dose of steroid should be tomorrow. Please drink plenty of fluids. You may also take ibuprofen and Tylenol as needed for discomfort.
[2022-12-22 15:37] VITALS: BP 128/80
== END 2022-12-22 15:25 | disposition home or self-care (01) ==
LOC: ED 13:45
DX: J02.9 Acute pharyngitis, unspecified (principal)
CPT/HCPCS: 87070; 87430; 99283; A9270; J7512

== ENCOUNTER 2023-10-30 12:30 | Emergency (ER) | payer OTHER ==
[2023-10-30 13:12] LABS: RAPID STREP SCREEN POSITIVE (Negative)
[2023-10-30] MEDS ORDERED: PENICILLIN VK 250 MG TABLET PO STA (14:03)
--- NOTE | 2023-10-30 14:05 | ED Physician Documentation ---
History of Present Illness - Stated complaint Stated Complaint: SORE THROAT - Chief complaint Chief Complaint: Heent - History obtained from History obtained from: Patient - Additonal information Additional information: 1 week of sore throat that is persistent. No other URI complaints. Had a fever a few days ago. 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: Ovarian cysts, Other : Renal insuffiency, Other HEENT: None Psych: Depression, Anxiety, Panic attacks Musculoskeletal: None Derm: None - Past Surgical History Past Surgical History: Yes General: Appendectomy /BUSINESS LAW TEACHER: section - Present Medications Home Medications: Ambulatory Orders Medication Instructions Recorded Confirmed Amoxicillin 500 mg PO TID 7 Days #21 cap 12/22/22 predniSONE [Deltasone] 60 mg PO DAILY 5 Days #15 tablet 12/22/22 Penicillin V Potassium 500 mg PO Q6HR #40 tablet 10/30/23 - Allergies Allergies/Adverse Reactions: Allergies Allergy/AdvReac Type Severity Reaction Status Date / Time No Known Drug Allergies Allergy Verified 12/22/22 13:50 - Social History Does the pt smoke?: No Smoking Status: Never smoker Does the pt drink ETOH?: Yes Does the pt have substance abuse?: Yes Substance Use and Type: CBD oil / Products - Immunizations Immunizations are current?: Yes Immunizations: TDAP >10years/unknown - POLST Patient has POLST: No PD ED PE NORMAL - Vitals Vital signs reviewed: Yes - General General: Alert and oriented X 3, No acute distress - HEENT HEENT: Other (Swollen red tonsils but without asymmetry or exudates. Normal phonation) - Neck Neck: Supple, no meningeal sign, No bony TTP - Neuro Neuro: Alert and oriented X 3 Results - Vitals Vitals: Vital Signs - 24 hr 10/30/23 12:45 Temperature 36.9 C Heart Rate 92 Respiratory 16 Rate Blood Pressure 126/74 O2 Saturation 97 Oxygen O2 Source Room air - Labs Labs: Laboratory Tests 10/30/23 12:49 Group A Strep Rapid POSITIVE H Departure - Departure Disposition: Home, Self Care Clinical Impression: Strep pharyngitis Condition: Stable Record reviewed to determine appropriate education?: Yes Instructions: ED Strep Pharyngitis Conf Prescriptions: Penicillin V Potassium 500 mg PO Q6HR #40 tablet Comments: I sent your prescription electronically to the [facility] in [place]. Drink plenty of fluids and you can take Tylenol and/or ibuprofen as needed for the pain. Should start to improve over the next few days. Return if worse. Forms: PCP List, Activity restrictions
[2023-10-30 14:22] VITALS: BP 124/72; O2SAT 98
== END 2023-10-30 14:13 | disposition home or self-care (01) ==
LOC: ED 12:30
DX: J02.0 Streptococcal pharyngitis (principal)
CPT/HCPCS: 87430; 99282; 99283; A9270

== ENCOUNTER 2024-05-08 17:19 | Emergency (ER) | payer OTHER ==
[2024-05-08 17:30] VITALS: BP 122/85; O2SAT 99
--- NOTE | 2024-05-08 17:51 | ED Physician Documentation ---
PD HPI HEENT - Stated complaint Stated Complaint: SORE THROAT - Chief complaint Chief Complaint: Heent - History obtained from History obtained from: Patient (Sore throat since yesterday with radiation to the ears. No fevers. 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 MACHINE OPERATOR: section - Present Medications Home Medications: Ambulatory Orders Medication Instructions Recorded Confirmed No Known Home Medications 05/08/24 05/08/24 - Allergies Allergies/Adverse Reactions: Allergies Allergy/AdvReac Type Severity Reaction Status Date / Time No Known Drug Allergies Allergy Verified 05/08/24 17:23 - Social History Does the pt smoke?: No Smoking Status: Never smoker Does the pt drink ETOH?: Yes Does the pt have substance abuse?: Yes - Immunizations Immunizations are current?: Yes Immunizations: TDAP >10years/unknown - POLST Patient has POLST: No PD ED PE NORMAL - Vitals Vital signs reviewed: Yes - General General: Alert and oriented X 3, No acute distress - HEENT HEENT: PERRL, EOMI, Other (Mildly enlarged and inflamed tonsils without exudates. No cervical adenopathy. TMs normal.) - Neck Neck: Supple, no meningeal sign, No bony TTP Results - Vitals Vitals: Vital Signs - 24 hr 05/08/24 17:24 Temperature 36.3 C L Heart Rate 103 H Respiratory 17 Rate Blood Pressure 122/85 H O2 Saturation 99 Oxygen O2 Source Room air - Labs Labs: Laboratory Tests 05/08/24 17:40 Group A Strep Rapid Negative Departure - Departure Disposition: 01 Home, Self Care Clinical Impression: Viral pharyngitis Condition: Good Record reviewed to determine appropriate education?: Yes Instructions: ED Pharyngitis Viral Comments: Will perform throat culture and if a change in therapy is necessary we will call you. In the meantime ibuprofen every 6 hours for pain. Return if worse. Forms: PCP List
[2024-05-08 18:03] LABS: RAPID STREP SCREEN Negative (Negative)
== END 2024-05-08 18:16 | disposition home or self-care (01) ==
LOC: ED 17:19
DX: J02.8 Acute pharyngitis due to other specified organisms (principal)
CPT/HCPCS: 87070; 87430; 99283

== ENCOUNTER 2024-07-27 10:59 | Emergency (ER) | payer OTHER ==
--- NOTE | 2024-07-27 11:21 | ED Physician Documentation ---
History of Present Illness - Stated complaint Stated Complaint: SORE THROAT,REDDNESS - Chief complaint Chief Complaint: Heent - Additonal information Additional information: 34-year-old female coming into the ER for 12 hours of sore throat. Patient says she woke up melanite with sore throat pain radiating to her left ear. She said that she has not been around anyone has been sick and she is noticing some white patches to the left portion of her throat. She took Tylenol and this did not help but unsure sitting fevers or chills no nausea or vomiting. Says she is prone to getting strep throat. 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: Ovarian cysts, Other : Renal insuffiency, Other HEENT: None Psych: Depression, Anxiety, Panic attacks Musculoskeletal: None Derm: None - Past Surgical History Past Surgical History: Yes General: Appendectomy /LIFE INSURANCE SPECIALIST: section - Present Medications Home Medications: Ambulatory Orders Medication Instructions Recorded Confirmed No Known Home Medications 05/08/24 05/08/24 - Allergies Allergies/Adverse Reactions: Allergies Allergy/AdvReac Type Severity Reaction Status Date / Time No Known Drug Allergies Allergy Verified 07/27/24 11:15 - Social History Does the pt smoke?: No Smoking Status: Never smoker Does the pt drink ETOH?: Yes Does the pt have substance abuse?: Yes - Immunizations Immunizations are current?: Yes Immunizations: TDAP >10years/unknown - POLST Patient has POLST: No PD ED PE NORMAL - Vitals Vital signs reviewed: Yes - General General: Alert and oriented X 3, No acute distress, Well developed/nourished - HEENT HEENT: Atraumatic - Neck Neck: Supple, no meningeal sign PD ED PE EXPANDED - HEENT HEENT: Moist mucous membranes, Pharyngeal erythema. No: Swollen tonsils, Tonsillar exudate, Soft palate petecchiae - Psych Psych: Tearful, Anxious Results - Vitals Vitals: Vital Signs - 24 hr 07/27/24 07/27/24 11:15 12:26 Temperature 36.4 C L 36.5 C Heart Rate 94 85 Respiratory 16 18 Rate Blood Pressure 124/81 H 127/112 H O2 Saturation 99 99 Oxygen O2 Source Room air - Labs Labs: Laboratory Tests 07/27/24 11:21 Group A Strep Rapid Negative PD Medical Decision Making - ED course ED course: 34 yo female with no history of immunocompromise. Nontoxic appearance. Patient euvolemic with no trismus. No airway compromise. No change in voice, exudates, enlarged lymph nodes. Able to tolerate PO. Given History and Exam I have low suspicion for this presentation being caused by SAMPLER TESTER, RPA, Ludwigs angina, Epiglottitis or Bacterial Tracheitis, EBV, acute HIV, or Strep throat. Rapid group A negative, Pt was given liquid motrin and dexamethasone for sore throat. She was informed that we will call her if her strep culture comes back positive. She was given ER return precautions and told to follow up with PCP as needed. Departure - Departure Disposition: 01 Home, Self Care Clinical Impression: Sore throat (viral) Instructions: Sore Throat, Sore Throats Self Care, Cold Virus Comments: Thank you for trusting us with your care. Your rapid strep has come back negative we will call you with the respiratory results if they end up coming back positive for anything. You can alternate between Tylenol ibuprofen for pain and discomfort as well as warm salt water rinses and gargling and honey. Please fill with your primary care provider as needed we will call you in a couple days if your strep comes back positive to prescribe antibiotics if needed. Please come back in if you are having fevers lasting longer than 5 days or any other worsening concerning symptoms. Forms: PCP List Discharge Date/Time: 07/27/24 12:27
[2024-07-27 11:24] VITALS: O2SAT 99
[2024-07-27 11:31] LABS: RAPID STREP SCREEN Negative (Negative)
[2024-07-27] MEDS: IBUPROFEN 200 MG/10 ML UDC PO STA (12:22)
[2024-07-27] MEDS: CHERRY SYRUP 10 ML UDC PO ONE (12:22)
[2024-07-27] MEDS: DEXAMETHASONE 10 MG/ML VIAL PO STA (12:22)
[2024-07-27 12:37] VITALS: BP 127/112
== END 2024-07-27 12:27 | disposition home or self-care (01) ==
LOC: ED 10:59
DX: J02.8 Acute pharyngitis due to other specified organisms (principal)
CPT/HCPCS: 87070; 87430; 99283; A9270